=== PATIENT | male | born 1960 | race African-American/Black ===

== ENCOUNTER 2017-03-06 06:13 | Observation (INO) | payer OTHER ==
[~2017-03-06] VITALS: Ht 180.3 cm; Wt 133.8 kg
[2017-03-06] VITALS (10 sets, daily range): BP systolic 116–171; BP diastolic 63–91
[~2017-03-06 06:13] MED LIST: AMLO10TA4 PO; AMLO5TAB4 PO; ASPI-630 PO; ASPI1CPM PO; ATOR20TA PO; CALC0.25 PO; CALC667C6 PO; CHOL2000 PO; FURO-68 PO; GLIP10TA13 PO; HYDR100T24 PO; INSU100I13 SQ; LABE100T3 PO; LIPITOR80 MG PO; LISI-338 PO; LOSA100T6 PO; LOSA50TA6 PO
[2017-03-06 07:03] LABS: HEMOGLOBIN 12.5 g/dL (13.0-17.5); RED BLOOD COUNT 4.33 x10^6/uL (4.30-5.70); RED CELL DISTRIBUTION WIDTH 17.8 % (11.5-14.5); WHITE BLOOD COUNT 7.3 x10^3/uL (4.0-11.0)
[2017-03-06] MEDS ORDERED: LIDOCAINE 2% 20 ML VIAL. ONE ×2 (07:09→08:30)
[2017-03-06] MEDS ORDERED: CINA30TA2 PO (07:11)
[2017-03-06] MEDS ORDERED: SEVE800T8 PO (07:11)
[2017-03-06 07:16] LABS: CALCIUM 8.4 mg/dL (8.5-10.1); CREATININE 13.7 mg/dL (0.7-1.3); GFR 4.5
[2017-03-06 07:21] LABS: POTASSIUM 5.8 mmol/L (3.5-5.1)
[2017-03-06] MEDS ORDERED: IODIXANOL 320 MG/ML 100 ML VIAL. ONE (07:26)
[2017-03-06 07:33] LABS: INR 1.1 (0.8-1.1); PROTHROMBIN TIME PATIENT 13.1 SEC (11.7-14.0)
--- NOTE | 2017-03-06 08:09 | PDOC ---
MODERATE SEDATION ASSESSMENT RISKS/ALTERNATIVES Risks/Alternatives Risks and alternatives of this type of sedation and procedure discussed with: RISK/ALTERNATIVES: Patient H & P ON CHART H & P H & P on chart and reviewed for co-morbid conditions and appropriate labs. H&P ON CHART: Yes STATUS PREG STATUS ASSESSED: N/A MEDS/ALLERGIES REVIEWED Meds/Allergies Reviewed Medications and Allergies including time and route of recently administered narcotics and sedatives. MEDS/ALLERGIES REVIEWED: Yes ASA RATING ASA RATING: II AIRWAY ASSESSMENT Airway Assessment Airway patency, oral function limitations, presence of caps, crowns, dentures, partials, and ability to extend neck assessed. AIRWAY ASSESSMENT: Yes MALLAMPATI SCORE MALLAMPATI SCORE: II PRE-SEDATION ASSESSMENT PRE-SEDATION ASSESSMENT: Yes MELODIE GR MD Mar 06, 2017 08:09
[2017-03-06] MEDS ORDERED: MIDAZOLAM HCL/PF 5 MG/5 ML VIAL. ONE (08:12)
[2017-03-06] MEDS ORDERED: fentaNYL PF VIAL 250 MCG/5 ML VIAL ONE (08:12)
[2017-03-06] MEDS ORDERED: MIDAZOLAM HCL/PF 5 MG/5 ML VIAL. IV ONE (08:45)
[2017-03-06] MEDS ORDERED: fentaNYL PF VIAL 250 MCG/5 ML VIAL IV ONE (08:45)
[2017-03-06] MEDS ORDERED: LIDOCAINE 2% 20 ML VIAL. IJ ONE (08:45)
[2017-03-06] MEDS ORDERED: IODIXANOL 320 MG/ML 100 ML VIAL. IART ONE (08:45)
[2017-03-06] MEDS ORDERED: VERAPAMIL 5 MG/2 ML VIAL. ONE (08:46)
[2017-03-06] MEDS ORDERED: NITROGLYCERIN 200 MCG/2 ML SYRINGE FOR CATH/VASC LAB. ONE ×2 (08:46→09:13)
[2017-03-06] MEDS ORDERED: HEPARIN for IV BOLUS 10,000 UNIT/10 ML VIAL. ONE (08:46)
[2017-03-06] MEDS ORDERED: HEPARIN for IV BOLUS 10,000 UNIT/10 ML VIAL. IART ONE (09:00)
[2017-03-06] MEDS ORDERED: VERAPAMIL 5 MG/2 ML VIAL. IART ONE (09:00)
[2017-03-06] MEDS ORDERED: NITROGLYCERIN 200 MCG/2 ML SYRINGE FOR CATH/VASC LAB. IART ONE (09:00)
[2017-03-06] MEDS ORDERED: NITROGLYCERIN SUBLINGUAL 0.4 MG BOTTLE OF 25. SL PRN (10:00)
[2017-03-06] MEDS ORDERED: 0.9 % SODIUM CHLORIDE 10 ML DISP.SYRIN. IV PRN ×3 (10:00→15:15)
--- NOTE | 2017-03-06 11:18 | PDOC2 ---
CONSULT Date of Consult Date of Consult DATE: 03/06/17 TIME: 11:15 Reason for Consult Reason for Consult: ESRD Referring Physician Referring Physician: Dr Hodge Identification/Chief Complaint Chief Complaint ABN Stress test, now S/p [facility] Problems: Source Source: Chart review, Patient History of Present Illness Reason for Visit: as dictated Past Medical History Cardiovascular: HTN, Hyperlipidemia Pulmonary: Other CENTRAL NERVOUS SYSTEM: CVA GI: Peptic Ulcer disease Psych: Anxiety Musculoskeletal: Osteoarthritis Rheumatologic: Gout Renal/: Chronic renal insuff Endocrine: Diabetes Family History Family History: Hypertension Social History No ALCOHOL: none Drugs: None Lives: with Family Current Medications Current Medications Current Medications Lidocaine HCl 20 ml STK-MED ONCE .ROUTE ; Start 03/06/17 at 07:09; Stop at 07:10; Status DC Heparin Sodium/ Sodium Chloride 500 ml @ As Directed STK-MED ONCE .ROUTE ; Start 03/06/17 at 07:09; Stop 03/06/17 at 07:10; Status DC Iodixanol (Visipaque 320) 100 ml STK-MED ONCE .ROUTE ; Start 03/06/17 at 07:26 ; Stop 03/06/17 at 07:27; Status DC Fentanyl Citrate (Fentanyl 5ml Vial) 250 mcg STK-MED ONCE .ROUTE ; Start at 08:12; Stop 03/06/17 at 08:13; Status DC Midazolam HCl (Versed) 5 mg STK-MED ONCE .ROUTE ; Start 03/06/17 at 08:12; Stop 03/06/17 at 08:13; Status DC Lidocaine HCl 20 ml STK-MED ONCE .ROUTE ; Start 03/06/17 at 08:30; Stop at 08:31; Status DC Heparin Sodium/ Sodium Chloride 1,000 unit 1X ONCE IART Last administered on 03/06/17 09:37; Start 03/06/17 at 08:45; Stop 03/06/17 at 08:46; Status DC Midazolam HCl (Versed) 3 mg 1X ONCE IV Last administered on 03/06/17 09:40; Start 03/06/17 at 08:45; Stop 03/06/17 at 08:46; Status DC Fentanyl Citrate (Fentanyl 5ml Vial) 100 mcg 1X ONCE IV Last administered on 03/06/17 09:39; Start 03/06/17 at 08:45; Stop 03/06/17 at 08:46; Status DC Iodixanol (Visipaque 320) 100 ml 1X ONCE IART Last administered on 03/06/17 09:38; Start 03/06/17 at 08:45; Stop 03/06/17 at 08:46; Status DC Lidocaine HCl 25 ml 1X ONCE IJ Last administered on 03/06/17 09:38; Start 03/06/17 at 08:45; Stop 03/06/17 at 08:46; Status DC Heparin Sodium (Porcine) (Heparin Sodium) 10,000 unit STK-MED ONCE .ROUTE ; Start 03/06/17 at 08:46; Stop 03/06/17 at 08:47; Status DC Verapamil HCl (Verapamil) 5 mg STK-MED ONCE .ROUTE ; Start 03/06/17 at 08:46; Stop 03/06/17 at 08:47; Status DC Nitroglycerin (Nitroglycerin) 200 mcg STK-MED ONCE .ROUTE ; Start 03/06/17 at 08:46; Stop 03/06/17 at 08:47; Status DC Nitroglycerin (Nitroglycerin) 200 mcg 1X ONCE IART Last administered on 09:41; Start 03/06/17 at 09:00; Stop 03/06/17 at 09:01; Status DC Verapamil HCl (Verapamil) 2.5 mg 1X ONCE IART Last administered on 03/06/17 09:41; Start 03/06/17 at 09:00; Stop 03/06/17 at 09:01; Status DC Heparin Sodium (Porcine) (Heparin Sodium) 2,500 unit 1X ONCE IART Last administered on 03/06/17 09:40; Start 03/06/17 at 09:00; Stop 03/06/17 at 09 :01; Status DC Heparin Sodium/ Sodium Chloride 500 ml @ As Directed STK-MED ONCE .ROUTE ; Start 03/06/17 at 08:59; Stop 03/06/17 at 09:00; Status DC Nitroglycerin (Nitroglycerin) 200 mcg STK-MED ONCE .ROUTE ; Start 03/06/17 at 09:13; Stop 03/06/17 at 09:14; Status DC Sodium Chloride (Normal Saline Flush) 3 ml QSHIFT PRN IV AFTER MEDS AND BLOOD DRAWS; Start 03/06/17 at 10:00; Stop 03/07/17 at 09:59 Nitroglycerin (Nitrostat) 0.4 mg PRN Q5MIN PRN SL CHEST PAIN; Start 03/06/17 at 10:00; Stop 03/07/17 at 09:59 Active Scripts Active Norvasc (Amlodipine Besylate) 10 Mg Tablet 10 Mg PO DAILY 30 Days Aspirin 81 Mg Tab.chew 1 Tab PO DAILY Lipitor (Atorvastatin Calcium) 20 Mg Tablet 1 Tab PO DAILY Losartan Potassium 50 Mg Tablet 50 Mg PO DAILY Reported Sensipar (Cinacalcet Hcl) 30 Mg Tablet 30 Mg PO DAILY Renagel (Sevelamer Hcl) 800 Mg Tablet 800 Mg PO TIDWMEALS Vitamin D (Cholecalciferol (Vitamin D3)) 2,000 Unit Capsule 4,000 Unit PO DAILY Allergies Allergies: Coded Allergies: No Known Allergies (Verified Allergy, Unknown, 01/06/14) ROS Review of System GEN: no Fevers no Chills OCcc weakness EYES: no new Visual Complaints ENT: no EN Drainage no Hearing deficiets CVS: no Orthopnea no CP RESP: no SOB no HERNANDEZ GI: no Nausea no Vomiting : no Dysuria no Urgency HEME: no easy bruising no Palp Ly Nodes NEURO no Focal Weakness no Sz PSYCH: no Suicidal Ideation no Depression SKIN: no Rashes ENDO: no Polyuria or Polydipsia no Hot/Cold Intolerance MU SK: no Arthraigia no Myalgia Physical Exam Physical Exam General Appearance: Awake Alert Oriented x 3 In no Distress Eyes: VIsion Unchanged Conjunctiva Normal EN: No EN Drainage Mucous Memb. moist Neck: no JVD no JVP Supple no Thyromegaly- thick neck CVS: S1 S2 no Murmur No Gallop No Rub no Edema Resp: no Rales no Rhonchi no Acc. Muscle use - distal BS GI: BAS +ve NO Bruit Non Tender Non Distended - Obese : no CVA tenderness; no Suprapubic Tenderness SKIN: no Rashes Breast Exam deferred Mu.Sk: Adequate ROM no Muscle Atrophy Heme: Unable to palpate Obvious LAD no Splenomegaly NEURO: Good Strength and Tone Cranial Nerves II - XII grossly intact Psych: not Depressed no Active hallucination Vital Signs Vital Signs Date Time Temp Pulse Resp B/P (MAP) Pulse Ox O2 Delivery O2 Flow Rate FiO2 03/06/17 11:07 70 14 95 Nasal Cannula 2.0 03/06/17 07:44 98.1 116/90 (99) 98.1 Assessment & Plan ESRD: Dialysis as below F 180 NR 4 Hrs 2 K 2.5 Ca 140 Na 35 HC03 Qb 350 + Qd 500+ Heparin 0 Units Uf to dry weight as tolerated (131 - 132Kg) May give 25-50 gms of 25% Albumin if needed to maintain Hemodynamic stability Treatment plan reviewed and discussed with salicylic acid blender Anemia: no Epogen for hgb > 12. ^K - anticipate correction with HD ? CAD - LHC Clean as reported HTN: Current BP meds reviewed. See orders for changes. Bone & Mineral: follow phos as OP Discussed Plan of Care and prognosis etc. at length with family. Labs Labs Laboratory Tests Test 03/06/17 06:50 White Blood Count 7.3 x10^3/uL (4.0-11.0) Red Blood Count 4.33 x10^6/uL (4.30-5.70) Hemoglobin 12.5 g/dL (13.0-17.5) Hematocrit 38.0 % (39.0-53.0) Mean Corpuscular Volume 88 fL (79-100) Mean Corpuscular Hemoglobin 29 pg (25-35) Mean Corpuscular Hemoglobin Concent 33 g/dL (31-37) Red Cell Distribution Width 17.8 % (11.5-14.5) Platelet Count 207 x10^3/uL (140-400) Prothrombin Time 13.1 SEC (11.7-14.0) Prothromb Time International Ratio 1.1 (0.8-1.1) Sodium Level 137 mmol/L (136-145) Potassium Level 5.8 mmol/L (3.5-5.1) Chloride Level 96 mmol/L (98-107) Carbon Dioxide Level 28 mmol/L (21-32) Anion Gap 13 (6-14) Blood Urea Nitrogen 60 mg/dL (8-26) Creatinine 13.7 mg/dL (0.7-1.3) Estimated GFR (Cockcroft-Gault) 4.5 Glucose Level 118 mg/dL (70-99) Calcium Level 8.4 mg/dL (8.5-10.1) Laboratory Tests Test 03/06/17 06:50 White Blood Count 7.3 x10^3/uL (4.0-11.0) Red Blood Count 4.33 x10^6/uL (4.30-5.70) Hemoglobin 12.5 g/dL (13.0-17.5) Hematocrit 38.0 % (39.0-53.0) Mean Corpuscular Volume 88 fL (79-100) Mean Corpuscular Hemoglobin 29 pg (25-35) Mean Corpuscular Hemoglobin Concent 33 g/dL (31-37) Red Cell Distribution Width 17.8 % (11.5-14.5) Platelet Count 207 x10^3/uL (140-400) Prothrombin Time 13.1 SEC (11.7-14.0) Prothromb Time International Ratio 1.1 (0.8-1.1) Sodium Level 137 mmol/L (136-145) Potassium Level 5.8 mmol/L (3.5-5.1) Chloride Level 96 mmol/L (98-107) Carbon Dioxide Level 28 mmol/L (21-32) Anion Gap 13 (6-14) Blood Urea Nitrogen 60 mg/dL (8-26) Creatinine 13.7 mg/dL (0.7-1.3) Estimated GFR (Cockcroft-Gault) 4.5 Glucose Level 118 mg/dL (70-99) Calcium Level 8.4 mg/dL (8.5-10.1) HÉCTOR CANO MD Mar 06, 2017 11:18
--- NOTE | 2017-03-06 11:44 | CARD ---
APPROVED REPORT Procedure Selective coronary angiogram. The patient is a 56-year-old male with new onset of end-stage renal disease on hemodialysis. Patient recently had a hospitalization with a non-ST elevated myocardial infarction. Outpatient nuclear stres s test suggested an inferior wall infarction. Cardiac catheterization was recommended. Risks and bene fits were discussed. The patient agreed to proceed. After informed consent was obtained the patient was brought to the heart catheterization lab. Initial ly the right femoral artery was prepared in the usual manner with Betadine, sterile draping and local anesthetic. An 18-gauge needle was used to enter the right femoral artery and a wire placed. Howeve r dilators and a sheath could not be placed over the wire probably secondary to the depth of the vess el and the angles involved. Therefore the wire was removed and pressure applied for 10 minutes. Hemos tasis was obtained. Then the area of the right radial artery was prepared usual manner with Betadine, sterile draping and local anesthetic. A quick catheter was used to enter the right radial artery aft er a normal Brennen's test. A sheath was placed over the wire. The routine mixture of verapamil, NTG a nd heparin was administered as per protocol. A J-wire was passed into ascending aorta. A 6 Argentine JL 3.5 and then a JL4 catheter was used to engage the left coronary system and sequential injections in various views were obtained. The patient had some spasm and further antispasm medication was administ ered. A 6 Argentine JR4 diagnostic catheter was then advanced to the ascending aorta after a right Willi ams diagnostic catheter could not engage the right coronary artery. The JR4 was able to engage right coronary artery and sequential injections in various views were obtained. The catheter was removed fr om the patient. The sheath was removed and hemostasis obtained by a TR band as per protocol. The herminia ent was moved to the holding area in stable condition. Findings. Hemodynamics. Aortic root pressure of 128/70. Coronaries. Left main. The left main was a relatively short vessel. It had no lesions. LAD. The LAD was a moderate size vessel that tapered to a small distal vessel. There was a mid 35% le sam in the mid to distal 30% lesion. Left circumflex. The left circumflex was a larger vessel. It had a relatively small OM1 that had a 40 -50% lesion. There was diffuse distal small vessel disease present. Right coronary artery. The right coronary was a moderately large vessel. There was a proximal 10% les ion. It also had distal small vessel disease. <Conclusion> Moderate coronary artery disease. Small vessel distal disease in the left circumflex and right coronary arteries.
[2017-03-06] MEDS ORDERED: hydrALAZINE 20 MG/ML VIAL. IVP PRN (13:30)
[2017-03-06] MEDS ORDERED: ASPIRIN CHEWABLE 81 MG TABLET. PO SCH (14:00)
[2017-03-06] MEDS: amLODIPine BESYLATE 10 MG TABLET PO SCH (15:14)
[2017-03-06] MEDS ORDERED: DIALYSIS PATIENT. MC PRN ×2 (15:15)
[2017-03-06] MEDS ORDERED: IV NORMAL SALINE 1000ML BAG 1,000 ML IV PRN ×2 (15:15)
[2017-03-06] MEDS ORDERED: ALBUMIN HUMAN 25% 200 ML IV PRN (15:15)
--- NOTE | 2017-03-06 15:36 | PDOC1 ---
History and Physical Visit Information Date of Admission: Mar 06, 2017 at 10:00 Source: Patient History of Present Illness History of Present Illness heart failure, ESRD Current Problem List Problems: (1) ESRD (end stage renal disease) on dialysis Cardiac Risk Factors Cardiac Risk Factors: Hypertension, Hyperlipidemia Past Medical History Cardiovascular: CAD, HTN, Hyperlipidemia Pulmonary: Bronchitis CENTRAL NERVOUS SYSTEM: CVA Renal/: Other (ESRD on HD) Past Surgical History Past Surgical History: Other (access dialysis) Current Medications Current Medications Current Medications Albumin Human 200 ml @ 200 mls/hr 1X PRN PRN IV Hypotension; Start 03/06/17 at 15:15; Stop 03/06/17 at 21:14 Amlodipine Besylate (Norvasc) 10 mg DAILY PO Last administered on 03/06/17 15 :14; Start 03/06/17 at 14:00 Aspirin (Children'S Aspirin) 81 mg DAILY PO Last administered on 03/06/17 15: 14; Start 03/06/17 at 14:00 Atorvastatin Calcium (Lipitor) 20 mg QHS PO ; Start 03/06/17 at 21:00 Fentanyl Citrate (Fentanyl 5ml Vial) 100 mcg 1X ONCE IV Last administered on 03/06/17 09:39; Start 03/06/17 at 08:45; Stop 03/06/17 at 08:46; Status DC Fentanyl Citrate (Fentanyl 5ml Vial) 250 mcg STK-MED ONCE .ROUTE ; Start at 08:12; Stop 03/06/17 at 08:13; Status DC Heparin Sodium (Porcine) (Heparin Sodium) 2,500 unit 1X ONCE IART Last administered on 03/06/17 09:40; Start 03/06/17 at 09:00; Stop 03/06/17 at 09 :01; Status DC Heparin Sodium (Porcine) (Heparin Sodium) 10,000 unit STK-MED ONCE .ROUTE ; Start 03/06/17 at 08:46; Stop 03/06/17 at 08:47; Status DC Heparin Sodium/ Sodium Chloride 500 ml @ As Directed STK-MED ONCE .ROUTE ; Start 03/06/17 at 07:09; Stop 03/06/17 at 07:10; Status DC Heparin Sodium/ Sodium Chloride 500 ml @ As Directed STK-MED ONCE .ROUTE ; Start 03/06/17 at 08:59; Stop 03/06/17 at 09:00; Status DC Heparin Sodium/ Sodium Chloride 1,000 unit 1X ONCE IART Last administered on 03/06/17 09:37; Start 03/06/17 at 08:45; Stop 03/06/17 at 08:46; Status DC Hydralazine HCl (Apresoline Inj) 10 mg PRN Q4HRS PRN IVP ELEVATED BP, SEE COMMENTS; Start 03/06/17 at 13:30 Info (PHARMACY MONITORING -- do not chart) 1 each PRN DAILY PRN MC SEE COMMENTS ; Start 03/06/17 at 15:15 Info (PHARMACY MONITORING -- do not chart) 1 each PRN DAILY PRN MC SEE COMMENTS ; Start 03/06/17 at 15:15; Status UNV Iodixanol (Visipaque 320) 100 ml 1X ONCE IART Last administered on 03/06/17 09:38; Start 03/06/17 at 08:45; Stop 03/06/17 at 08:46; Status DC Iodixanol (Visipaque 320) 100 ml STK-MED ONCE .ROUTE ; Start 03/06/17 at 07:26 ; Stop 03/06/17 at 07:27; Status DC Lidocaine HCl 20 ml STK-MED ONCE .ROUTE ; Start 03/06/17 at 07:09; Stop at 07:10; Status DC Lidocaine HCl 20 ml STK-MED ONCE .ROUTE ; Start 03/06/17 at 08:30; Stop at 08:31; Status DC Lidocaine HCl 25 ml 1X ONCE IJ Last administered on 03/06/17 09:38; Start 03/06/17 at 08:45; Stop 03/06/17 at 08:46; Status DC Midazolam HCl (Versed) 3 mg 1X ONCE IV Last administered on 03/06/17 09:40; Start 03/06/17 at 08:45; Stop 03/06/17 at 08:46; Status DC Midazolam HCl (Versed) 5 mg STK-MED ONCE .ROUTE ; Start 03/06/17 at 08:12; Stop 03/06/17 at 08:13; Status DC Nitroglycerin (Nitroglycerin) 200 mcg 1X ONCE IART Last administered on 09:41; Start 03/06/17 at 09:00; Stop 03/06/17 at 09:01; Status DC Nitroglycerin (Nitroglycerin) 200 mcg STK-MED ONCE .ROUTE ; Start 03/06/17 at 08:46; Stop 03/06/17 at 08:47; Status DC Nitroglycerin (Nitroglycerin) 200 mcg STK-MED ONCE .ROUTE ; Start 03/06/17 at 09:13; Stop 03/06/17 at 09:14; Status DC Nitroglycerin (Nitrostat) 0.4 mg PRN Q5MIN PRN SL CHEST PAIN; Start 03/06/17 at 10:00; Stop 03/07/17 at 09:59 Sodium Chloride 1,000 ml @ 400 mls/hr Q2H30M PRN IV PATENCY; Start 03/06/17 at 15:15; Stop 03/07/17 at 03:14 Sodium Chloride 1,000 ml @ 1,000 mls/hr Q1H PRN IV hypotension; Start at 15:15; Stop 03/06/17 at 21:14 Sodium Chloride (Normal Saline Flush) 3 ml QSHIFT PRN IV AFTER MEDS AND BLOOD DRAWS; Start 03/06/17 at 10:00; Stop 03/07/17 at 09:59 Sodium Chloride (Normal Saline Flush) 10 ml 1X PRN PRN IV AP catheter pack; Start 03/06/17 at 15:15; Stop 03/07/17 at 15:14 Sodium Chloride (Normal Saline Flush) 10 ml 1X PRN PRN IV [employer]IST catheter pack; Start 03/06/17 at 15:15; Stop 03/07/17 at 15:14 Verapamil HCl (Verapamil) 2.5 mg 1X ONCE IART Last administered on 03/06/17t 09:41; Start 03/06/17 at 09:00; Stop 03/06/17 at 09:01; Status DC Verapamil HCl (Verapamil) 5 mg STK-MED ONCE .ROUTE ; Start 03/06/17 at 08:46; Stop 03/06/17 at 08:47; Status DC Allergies Allergies Allergies Coded Allergies Type Severity Reaction Last Updated Verified No Known Allergies Allergy Unknown 01/06/14 Yes Social History Smoke: No ALCOHOL: none Family History Family History: Heart Disease, Hypertension ROS General: YES: Fatigue Respiratory: YES: Cough, Shortness of breath Physical Exam General: No acute distress HEENT: Atraumatic Lungs: Clear to auscultation Heart: Regular rate CHEST: Clear to auscultation Abdomen: Normal bowel sounds Vitals VITALS Vital Signs Date Time Temp Pulse Resp B/P (MAP) Pulse Ox O2 Delivery O2 Flow Rate FiO2 03/06/17 15:14 70 151/63 03/06/17 11:38 95 Nasal Cannula 2.0 03/06/17 11:07 14 03/06/17 10:30 97.6 97.6 Labs Labs Laboratory Tests Test 03/06/17 06:50 White Blood Count 7.3 x10^3/uL (4.0-11.0) Red Blood Count 4.33 x10^6/uL (4.30-5.70) Hemoglobin 12.5 g/dL (13.0-17.5) Hematocrit 38.0 % (39.0-53.0) Mean Corpuscular Volume 88 fL (79-100) Mean Corpuscular Hemoglobin 29 pg (25-35) Mean Corpuscular Hemoglobin Concent 33 g/dL (31-37) Red Cell Distribution Width 17.8 % (11.5-14.5) Platelet Count 207 x10^3/uL (140-400) Prothrombin Time 13.1 SEC (11.7-14.0) Prothromb Time International Ratio 1.1 (0.8-1.1) Sodium Level 137 mmol/L (136-145) Potassium Level 5.8 mmol/L (3.5-5.1) Chloride Level 96 mmol/L (98-107) Carbon Dioxide Level 28 mmol/L (21-32) Anion Gap 13 (6-14) Blood Urea Nitrogen 60 mg/dL (8-26) Creatinine 13.7 mg/dL (0.7-1.3) Estimated GFR (Cockcroft-Gault) 4.5 Glucose Level 118 mg/dL (70-99) Calcium Level 8.4 mg/dL (8.5-10.1) Laboratory Tests Test 03/06/17 06:50 White Blood Count 7.3 x10^3/uL (4.0-11.0) Red Blood Count 4.33 x10^6/uL (4.30-5.70) Hemoglobin 12.5 g/dL (13.0-17.5) Hematocrit 38.0 % (39.0-53.0) Mean Corpuscular Volume 88 fL (79-100) Mean Corpuscular Hemoglobin 29 pg (25-35) Mean Corpuscular Hemoglobin Concent 33 g/dL (31-37) Red Cell Distribution Width 17.8 % (11.5-14.5) Platelet Count 207 x10^3/uL (140-400) Prothrombin Time 13.1 SEC (11.7-14.0) Prothromb Time International Ratio 1.1 (0.8-1.1) Sodium Level 137 mmol/L (136-145) Potassium Level 5.8 mmol/L (3.5-5.1) Chloride Level 96 mmol/L (98-107) Carbon Dioxide Level 28 mmol/L (21-32) Anion Gap 13 (6-14) Blood Urea Nitrogen 60 mg/dL (8-26) Creatinine 13.7 mg/dL (0.7-1.3) Estimated GFR (Cockcroft-Gault) 4.5 Glucose Level 118 mg/dL (70-99) Calcium Level 8.4 mg/dL (8.5-10.1) VTE Prophylaxis Ordered VTE Prophylaxis Devices: Yes VTE Pharmacological Prophylaxi: Yes Assessment/Plan Assessment/Plan 1. History of a non-ST elevated myocardial infarction. Abnormal nuclear stress test. Cardiac catheterization today with moderate coronary disease and distal small vessel disease. From a cardiac viewpoint will continue on medical treatment. Post catheterization protocol. 2. End-stage renal disease on hemodialysis. Patient is scheduled for dialysis later today. Potassium level has increased. We'll consult the renal service for hemodialysis. 3. Hyperkalemia. Dialysis as above. 4. Hypertension. Resume home medications. 5. Hyperlipidemia. Statin medications. 6. Diabetes mellitus. We'll monitor glucose levels and adjust medications as needed. 7. History of CVA. MELODIE GR MD Mar 06, 2017 15:36
[2017-03-06] MEDS ORDERED: ATORVASTATIN CALCIUM 20 MG TABLET PO SCH ×2 (21:00)
--- NOTE | 2017-03-06 23:52 | CONS ---
DATE OF CONSULTATION: REASON FOR CONSULTATION: ESRD dialysis, hyperkalemia. HISTORY OF PRESENT ILLNESS: The patient is a 56-year-old -[place] gentleman, he is noted to have an abnormal stress test, presented to the hospital for an elective cath. Reportedly his cath is clean, but his potassium was noted to be 5.9 and we were asked to see him for dialysis. He would not be able to get home in a timely manner had his dialysis done. He does admit to some amount of weakness towards the end of dialysis, his dry weight was raised on Thursday. He claims he felt better on Thursday, although prior to that, he was having some weakness in his lower extremities. It is felt that it is not weigh accurately prior to coming to dialysis. For rest of the details, see electronic records. HÉCTOR CANO MD DR: AINSLEY/jnaessa JOB#: [id number] / [id number]
[2017-03-07 03:15] VITALS: BP 103/53
[2017-03-07 07:00] VITALS: BP 129/84
[2017-03-07] MEDS ORDERED: ASPIRIN ENTERIC COATED 325 MG TABLET.DR. PO SCH (08:00)
[2017-03-07] MEDS ORDERED: amLODIPine BESYLATE 10 MG TABLET PO SCH (09:00)
[2017-03-07] MEDS ORDERED: LOSARTAN POTASSIUM 50 MG TABLET. PO SCH (09:00)
[2017-03-07] MEDS: amLODIPine BESYLATE 10 MG TABLET PO SCH (09:32)
[2017-03-07 09:33] VITALS: BP 103/53
--- NOTE | 2017-03-07 10:53 | PDOC3 ---
Discharge Summary Visit Information Date of Admission: Mar 06, 2017 Date of Discharge: Mar 07, 2017 Admitting Diagnosis: abnormal stress test, ESRD Final Diagnosis moderate CAD, ESRD Brief Hospital Course Allergies Allergies Coded Allergies Type Severity Reaction Last Updated Verified No Known Allergies Allergy Unknown 01/06/14 Yes Vital Signs Vital Signs Date Time Temp Pulse Resp B/P (MAP) Pulse Ox O2 Delivery O2 Flow Rate FiO2 03/07/17 09:33 85 103/53 03/07/17 08:10 Room Air 03/07/17 07:00 98.0 20 97 98.0 03/06/17 11:38 2.0 Lab Results Laboratory Tests Test 03/06/17 06:50 White Blood Count 7.3 x10^3/uL (4.0-11.0) Red Blood Count 4.33 x10^6/uL (4.30-5.70) Hemoglobin 12.5 g/dL (13.0-17.5) Hematocrit 38.0 % (39.0-53.0) Mean Corpuscular Volume 88 fL (79-100) Mean Corpuscular Hemoglobin 29 pg (25-35) Mean Corpuscular Hemoglobin Concent 33 g/dL (31-37) Red Cell Distribution Width 17.8 % (11.5-14.5) Platelet Count 207 x10^3/uL (140-400) Prothrombin Time 13.1 SEC (11.7-14.0) Prothromb Time International Ratio 1.1 (0.8-1.1) Sodium Level 137 mmol/L (136-145) Potassium Level 5.8 mmol/L (3.5-5.1) Chloride Level 96 mmol/L (98-107) Carbon Dioxide Level 28 mmol/L (21-32) Anion Gap 13 (6-14) Blood Urea Nitrogen 60 mg/dL (8-26) Creatinine 13.7 mg/dL (0.7-1.3) Estimated GFR (Cockcroft-Gault) 4.5 Glucose Level 118 mg/dL (70-99) Calcium Level 8.4 mg/dL (8.5-10.1) Brief Hospital Course Mr Ornelas is a 56 yo male admitted for elective LHC. He has been noted recently with abnormal stress test prompting LHC. He is also has ESRD and nephrology ( Dr. Saini) has been consulted for subsequent need of HD following the LHC. Initially right femoral approach was initiated but was unable to penetrate effectively so right radial approach was performed successfully, Both the right groin and right radial arteriotomy site is intact without erythema or swelling and post LHC neurovascular status to extremities were intact. Pt tolerated procedure well wiuthout complications. Overall moderate CAD Small vessel distal disease in the left circumflex and right coronary arteries. Hemodialysis was performed post LHC. Overnight pt did well without discomfort. VSS, with BP mildly labile initially but improved upon initiation of his BP meds. Will continue with secondary prevention with current home meds and follow up in office in 4 weeks. Discharge Information Condition at Discharge: Stable Follow Up: Weeks (4) Disposition/Orders: D/C to Home Scheduled Amlodipine Besylate (Norvasc), 10 MG PO DAILY Aspirin (Aspirin), 1 TAB PO DAILY Atorvastatin Calcium (Lipitor), 1 TAB PO DAILY Cholecalciferol (Vitamin D3) (Vitamin D), 4,000 UNIT PO DAILY, (Reported) Cinacalcet Hcl (Sensipar), 30 MG PO DAILY, (Reported) Losartan Potassium (Losartan Potassium), 50 MG PO DAILY Sevelamer Hcl (Renagel), 800 MG PO TIDWMEALS, (Reported) Patient Instructions Patient Instructions GENERAL INSTRUCTIONS: 1. Your dressing should be removed prior to leaving the hospital. 2. It is OK to shower the day after your procedure. 3. If you received stents, be sure to carry your stent information card with you in your wallet/purse at all times. 4. Call the office immediately at [phone] if you notice any fever or if there is redness, worsening tenderness/pain, increased bruising, or drainage from the puncture site. 5. Should you have bleeding from the site, lie down immediately & put pressure on the site. The pressure should be hard enough to stop the bleeding. Have the nearest person call 911. DO NOT try to drive to the ER with active bleeding. 6. If you notice a change in color, coolness to touch, or loss of feeling in the affected extremity, come to the emergency room. Please have someone drive you or call 911 if no one is available. DO NOT drive yourself. 7. If you normally take glucophage (metformin), please do not take this medicine for 48 hours following your procedure. 8. DO NOT STOP TAKING YOUR PLAVIX OR ASPIRIN UNLESS IT IS CLEARED BY A TURBINE INSPECTOR OF YOUR NURSE SITTER AT OUR OFFICE. 9. QUIT SMOKING: the [place] [employer], [place] [employer], & [place] [employer] have cessation resources available on their websites 10. Please have someone available to drive you home from the hospital as you may be limited by sedation medications given during the procedure. Femoral (Groin) access: 1. Do no lifting, pushing, pulling, bending, stooping, or recurrent stair climbing for 3 days following your procedure. 2. Once past the first 3 days, do not do any HEAVY exertion or lifting for one week following the procedure. No gym workouts, running, lifting greater than a gallon of milk, etc 3. Do not submerge in bath or pool for one week. OK to drive 3 days following your procedure, but if going long distance, do not go alone & take hourly breaks to get out of car and walk around. Radial Artery (Wrist) access: 1. No pushing, pulling, lifting, typing, or anything that requires repetitive use/movement of the affected wrist for 3 days following your procedure. 2. OK to drive the day following your procedure. (This is because of effects of sedating medications.) Call the office at [phone] for any questions or concerns. AMBAR GONZALEZ APRN Mar 07, 2017 10:53
== END 2017-03-07 14:02 | disposition home or self-care (01) ==
LOC: CCL 06:13 → 2 SOUTH 10:00
PROVIDERS: ADMIT Internal Medicine Cardiovascular Disease; ATTEND Internal Medicine Cardiovascular Disease
DX: I25.10 Atherosclerotic heart disease of native coronary artery without angina pectoris (principal); I12.0 Hypertensive chronic kidney disease with stage 5 chronic kidney disease or end stage renal disease; E11.22 Type 2 diabetes mellitus with diabetic chronic kidney disease; N18.6 End stage renal disease; E78.5 Hyperlipidemia, unspecified; M10.9 Gout, unspecified; E66.01 Morbid (severe) obesity due to excess calories; E87.5 Hyperkalemia; I25.2 Old myocardial infarction; M19.90 Unspecified osteoarthritis, unspecified site; F41.9 Anxiety disorder, unspecified; Z86.73 Personal history of transient ischemic attack (TIA), and cerebral infarction without residual deficits; Z87.11 Personal history of peptic ulcer disease
CPT/HCPCS: 36415; 80048; 85027; 85610; 90935; 93454; C1769; C1892; G0378; G0379; J1644; J2250; J3010; J3490; 99152; 99153; G0257; J2001

== ENCOUNTER → 2018-09-15 | Day surgery (SDC) | payer OTHER ==
[~2018-09-15] VITALS: Ht 180.3 cm; Wt 59.9 kg
[~2018-09-15] MED LIST changes: +AMLO10TA8 PO; +ATOR20TA58 PO; +BUPIVAC MPF-EPI 0.5%-1:200000 30 ML VIAL. ONE; +CARV3.1210 PO; +CINA30TA2 PO; +DESFLURANE 61 TO 120 MINUTES IH ONE; +DEXAMETHASONE SOD PHOS 4 MG/ML VIAL ONE; +ESCITALOPRAM OX10 MG PO; +ESMOLOL 100 MG/10 ML VIAL. IVP ONE; +FERR210T PO; +FURO40TA4 PO; +GLYCOPYRROLATE 1 MG/5 ML VIAL. ONE; +HEPARIN SODIUM 1,000 UNIT in IV NORMAL SALINE 100ML 100 ML IRR ONE; +HYDR-3164 PO; +HYDROcodone/APAP 5/325MG 1 TAB TABLET PO ONE; +HYDROmorphone 2 MG/ML VIAL IV PRN; +IV NORMAL SALINE 1000ML BAG 1,000 ML IV SCH; +IV RINGERS,LACTATED 1000ML 1,000 ML IV SCH; -LABE100T3 PO; +LABE100T5 PO; +LIDOCAINE 1% PF 2 ML VIAL. ID PRN; +LIDOCAINE 2% PF 5 ML VIAL. ONE; +LOSA-73 PO; +LOSA100T14 PO; -LOSA100T6 PO; -LOSA50TA6 PO; +MORPHINE SULFATE 2 MG/ML VIAL. IV PRN; +NEOSTIGMINE METHYLSULFATE 5 MG/5 ML SYRINGE. ONE; +ONDANSETRON PF 4 MG/2 ML VIAL. IV PRN; +ONDANSETRON PF 4 MG/2 ML VIAL. ONE; +PROCHLORPERAZINE 10 MG/2 ML VIAL. IV PRN; +PROCHLORPERAZINE 10 MG/2 ML VIAL. ONE; +PROPOFOL 20 ML IV ONE; +ROCURONIUM 50 MG/5 ML VIAL. ONE; +SEVE800T8 PO; +ceFAZolin 2GM PREMIX 2 GM/50 ML BAG IV ONE; +fentaNYL PF VIAL 100 MCG/2 ML VIAL IV PRN; +fentaNYL PF VIAL 100 MCG/2 ML VIAL ONE
--- NOTE | 2018-09-15 09:08 | DISCH ---
DISCHARGE INSTRUCTIONS Condition on Discharge Condition on Discharge: Stable Activity After Discharge Activity Instructions for Disc: Other, see below (no lifting over 20 lbs X 2 weeks) Diet after Discharge Diet after Discharge: Renal Dialysis Wound Incision Care Wound/Incision Care: Other, see below (keep dressings clean and dry until seen by dialysis center) Follow-Up Follow up with: Dialysis center ILEANA BETANCOURT MD September 15, 2018 09:08
--- NOTE | 2018-09-15 09:15 | PDOC4 ---
Operative Note Operative Note OPERATIVE NOTE: PREOPERATIVE DIAGNOSIS: Renal failure. POSTOPERATIVE DIAGNOSIS: Renal failure. PROCEDURE: Laparoscopic peritoneal dialysis catheter placement. SURGEON: Koko Betancourt MD ANESTHESIA: General. ESTIMATED BLOOD LOSS: 10 mL. SPECIMENS: None. DRAINS: None. COMPLICATIONS: None. INDICATIONS: The patient is a 57 year old male who was referred for placement of a peritoneal dialysis catheter due to progressive renal failure. The details and risks of surgery were discussed with the patient. The risks of surgery include bleeding, infection, visceral injury, pain, anesthetic risk, potential need for additional surgery or procedure. In addition, the patient is aware of the potential for catheter malfunction or dysfunction and possibility of needing revision, replacement, or removal of the catheter. They understand all this and would like to proceed. DESCRIPTION OF PROCEDURE: The patient was brought to the operating room and placed supine on the operating table. General anesthesia was performed. The abdomen was prepped with ChloraPrep and draped in a standard surgical manner. The patient is obese and the plan is for a tunneled catheter to exit in the left upper quadrant. The template was used to katia the left abdomen for planned placement of lower portion of the catheter. A small incision was made in the patient's right upper quadrant through which a visualized 5-mm trocar was inserted. A pneumoperitoneum was then created and the laparoscope was introduced. Initial inspection showed no significant adhesions or any other gross abnormalities. A small incision was made to the left of the patient's midline at the marked location for the exit site of the cuff. An 8-mm trocar was inserted through this location. The coiled portion of the lower catheter was then inserted into the pelvis under direct visualization. The cuff was positioned in the rectus musculature. The coiled portion rested well in the inferior mid pelvis. The pneumoperitoneum was then relieved. Using the second template the abdomen was marked at the estimated exit site of the upper catheter portion. The upper and lower catheters were then cut based on template measurements which included the distance to the fascia. The catheters were joined using the metallic connector. The catheters were secured to the connector using 2-0 Prolene. A left upper quadrant incision was made at the exit site marking. The catheter was then tunneled anterior to the fascia using the large tunneler. Reinspection of the abdomen with the laparoscope showed some movement of the intra-abdominal portion of the catheter. A 5 mm trocar was then placed in left lower quadrant which assisted with repositioning of the abdominal portion of the catheter. Again care was taken to ensure that the coiled portion rested in the low pelvis and the cuff rested in the muscle layer. Another incision was made in the left upper quadrant for planned exit site of the proximal catheter. The catheter was then tunneled subcutaneously and the proximal cuff remained in the subcutaneous tissue a few cm away from the exit site. The catheter was then assembled to IV tubing and tested by infusing a liter of saline. The saline passed easily into the abdomen and the bag was placed on the floor. Nearly all of the saline readily was retrieved with prompt flow. The pneumoperitoneum was relieved and the ports were removed. The catheter was then assembled to the connector tubing as per the dialysis instructions. All the incision sites were closed with 4-0 Monocryl. Steri-Strips and sterile dressing were then applied. The patient tolerated procedure well and was sent to the recovery room in stable condition. At the end of the case all counts were correct. KOKO BETANCOURT MD September 15, 2018 09:15
[2018-09-15] MEDS: fentaNYL PF VIAL 100 MCG/2 ML VIAL IV PRN ×3 (09:37→10:39)
[2018-09-15 12:10] VITALS: BP 122/68
== END | disposition home or self-care (01) ==
LOC: SURG 05:47
PROVIDERS: ATTEND Surgery
DX: E11.22 Type 2 diabetes mellitus with diabetic chronic kidney disease (principal); I12.9 Hypertensive chronic kidney disease with stage 1 through stage 4 chronic kidney disease, or unspecified chronic kidney disease; N18.9 Chronic kidney disease, unspecified; E78.5 Hyperlipidemia, unspecified; M10.9 Gout, unspecified; Z79.82 Long term (current) use of aspirin; Z86.73 Personal history of transient ischemic attack (TIA), and cerebral infarction without residual deficits; Z98.890 Other specified postprocedural states; Z79.84 Long term (current) use of oral hypoglycemic drugs
CPT/HCPCS: 49324; A7015; C1752; J0696; J0780; J1100; J1644; J2001; J2405; J2704; J2710; J3010; J3490

== ENCOUNTER → 2018-10-12 | Outpatient (CLI) | payer OTHER ==
[2018-09-15 12:10] VITALS: BP 122/68
[~2018-10-12] MED LIST changes: -BUPIVAC MPF-EPI 0.5%-1:200000 30 ML VIAL. ONE; -DESFLURANE 61 TO 120 MINUTES IH ONE; -DEXAMETHASONE SOD PHOS 4 MG/ML VIAL ONE; -ESMOLOL 100 MG/10 ML VIAL. IVP ONE; -GLYCOPYRROLATE 1 MG/5 ML VIAL. ONE; -HEPARIN SODIUM 1,000 UNIT in IV NORMAL SALINE 100ML 100 ML IRR ONE; -HYDROcodone/APAP 5/325MG 1 TAB TABLET PO ONE; -HYDROmorphone 2 MG/ML VIAL IV PRN; -IV NORMAL SALINE 1000ML BAG 1,000 ML IV SCH; -IV RINGERS,LACTATED 1000ML 1,000 ML IV SCH; -LIDOCAINE 1% PF 2 ML VIAL. ID PRN; -LIDOCAINE 2% PF 5 ML VIAL. ONE; -MORPHINE SULFATE 2 MG/ML VIAL. IV PRN; -NEOSTIGMINE METHYLSULFATE 5 MG/5 ML SYRINGE. ONE; -ONDANSETRON PF 4 MG/2 ML VIAL. IV PRN; -ONDANSETRON PF 4 MG/2 ML VIAL. ONE; -PROCHLORPERAZINE 10 MG/2 ML VIAL. IV PRN; -PROCHLORPERAZINE 10 MG/2 ML VIAL. ONE; -PROPOFOL 20 ML IV ONE; -ROCURONIUM 50 MG/5 ML VIAL. ONE; -ceFAZolin 2GM PREMIX 2 GM/50 ML BAG IV ONE; -fentaNYL PF VIAL 100 MCG/2 ML VIAL IV PRN; -fentaNYL PF VIAL 100 MCG/2 ML VIAL ONE
--- NOTE | 2018-10-12 14:22 | CARD ---
MR#: [id number] Date of Study: 10/12/2018 Ordering Physician: MELODIE GR, Referring Physician: MELODIE GR, Tech: Chantale Brock [facility] APPROVED REPORT EXAM: Two-dimensional and M-mode echocardiogram with Doppler and color Doppler. Other Information Quality : AverageHR: 74bpm Rhythm : NSR INDICATION Cardiomyopathy 2D DIMENSIONS RVDd3.2 (2.9-3.5cm)Left Atrium(2D)4.1 (1.6-4.0cm) IVSd1.7 (0.7-1.1cm)Aortic Root(2D)3.3 (2.0-3.7cm) LVDd5.2 (3.9-5.9cm)LVOT Diameter2.4 (1.8-2.4cm) PWd1.2 (0.7-1.1cm)LVDs3.6 (2.5-4.0cm) FS (%) 30.6 %SV75.2 ml LVEF(%)57.8 (>50%) M-Mode DIMENSIONS Left Atrium(MM)3.68 (2.5-4.0cm)Aortic Root3.26 (2.2-3.7cm) Aortic Valve AoV Peak Diony.265.0cm/sAoV VTI50.4cm AO Peak GR.28.1mmHgLVOT Peak Diony.121.7cm/s AO Mean GR.13mmHgAVA (VMAX)2.06cm2 MAYE (VTI)2.10cm2 Mitral Valve MV E Bxslyymy05.3cm/sMV DECEL [id number] MV A Vqeuioij628.4cm/sE/A Ratio0.8 MV A [id number] Pulmonary Valve PV Peak Uawcrskd87.3cm/s LEFT VENTRICLE The left ventricle is normal size. There is moderate concentric left ventricular hypertrophy. The lef t ventricular systolic function is normal. The Ejection Fraction is 55-60%. There is normal LV segmen tracy wall motion. Transmitral Doppler flow pattern is Grade I-abnormal relaxation pattern. RIGHT VENTRICLE The right ventricle is normal size. There is normal right ventricular wall thickness. The right ventr icular systolic function is normal. ATRIA The left atrium is mildly dilated. The right atrium size is normal. The interatrial septum is intact with no evidence for an atrial septal defect or patent foramen ovale as noted on 2-D or Doppler imagi ng. AORTIC VALVE The aortic valve is mildly calcified. The aortic valve is trileaflet. Doppler and Color Flow revealed mild aortic regurgitation. Calculated aortic valve area is 2.1 cm2 with maximum pressure gradient of 28 mmHg and mean pressure gradient of 13 mmHg. MITRAL VALVE Mitral annular calcification is mild. There is no evidence of mitral valve prolapse. There is no mitr al valve stenosis. Doppler and Color Flow revealed no mitral valve regurgitation noted. TRICUSPID VALVE The tricuspid valve is normal in structure and function. Doppler and Color Flow revealed no tricuspid valve regurgitation noted. There is no tricuspid valve prolapse or vegetation. There is no tricuspid valve stenosis. PULMONIC VALVE The pulmonic valve is not well visualized. GREAT VESSELS The aortic root is normal in size. The ascending aorta is normal in size. The IVC is normal in size a nd collapses >50% with inspiration. PERICARDIAL EFFUSION There is no evidence of significant pericardial effusion. Critical Notification Critical Value: No <Conclusion> The left ventricular systolic function is normal. The Ejection Fraction is 55-60%. There is normal LV segmental wall motion. Transmitral Doppler flow pattern is Grade I-abnormal relaxation pattern. Mild aortic regurgitation. There is no evidence of significant pericardial effusion. Signed by : Larry Olivares, Electronically Approved : 10/12/2018 14:22:15
== END | disposition home or self-care (01) ==
LOC: ECHO 12:45
PROVIDERS: ATTEND Internal Medicine Cardiovascular Disease
DX: I08.0 Rheumatic disorders of both mitral and aortic valves (principal); I11.9 Hypertensive heart disease without heart failure; I25.5 Ischemic cardiomyopathy
CPT/HCPCS: 93306

== ENCOUNTER 2019-03-24 17:09 | Emergency (ER) | payer OTHER ==
[~2019-03-24] VITALS: Ht 190.5 cm; Wt 140.2 kg
[2019-03-24] MEDS ORDERED: ONDANSETRON PF 4 MG/2 ML VIAL. IV ONE (17:30)
[2019-03-24] MEDS ORDERED: SCOPOLAMINE 1.5MG PATCH. TD ONE (17:30)
[2019-03-24 17:47] LABS: BASO # 0.1 x10^3/uL (0.0-0.2); BASO % 0 % (0-3); EOS # 0.2 x10^3/uL (0.0-0.7); EOS % 2 % (0-3); HEMOGLOBIN 12.7 g/dL (13.0-17.5); LYMPH # 1.2 x10^3/uL (1.0-4.8); LYMPH % 8 % (24-48); MEAN CORPUSCULAR HEMOGLOBIN 32 pg (25-35); MEAN CORPUSCULAR HGB CONC 33 g/dL (31-37); MEAN CORPUSCULAR VOLUME 96 fL (79-100); MONO # 0.7 x10^3/uL (0.0-1.1); MONO % 4 % (0-9); NEUT # 13.1 x10^3/uL (1.8-7.7); NEUT % 86 % (31-73); PLATELET COUNT 261 x10^3/uL (140-400); RED BLOOD COUNT 3.94 x10^6/uL (4.30-5.70); RED CELL DISTRIBUTION WIDTH 15.4 % (11.5-14.5); WHITE BLOOD COUNT 15.2 x10^3/uL (4.0-11.0)
[2019-03-24 17:54] LABS: CREATININE 18.4 mg/dL (0.7-1.3); GFR 3.2; POTASSIUM 3.6 mmol/L (3.5-5.1)
--- NOTE | 2019-03-24 17:55 | PHYS DOC ---
Past Medical History Past Medical History: CVA, High Cholesterol, Hypertension, Other Additional Past Medical Histor: kidney failure with peritoneal dialysis, (RAGHAVENDRA ENRIQUEZ Jr. DO) Past Surgical History: Other Additional Past Surgical Histo: peritoneal dialysis catheter, left arm shunt. (RAGHAVENDRA ENRIQUEZ Jr. DO) Alcohol Use: None Drug Use: None (RAGHAVENDRA ENRIQUEZ Jr., DO) Adult General Chief Complaint Chief Complaint: DIZZY/LIGHT HEADED HPI HPI Patient is a 58-year-old male who presents with complaint of acute onset of dizziness that started approximately 45 minutes ago. Patient indicates that his soon as he became dizzy, he developed severe nausea and vomiting. He denies any headache or lateralizing weakness. He states the dizziness is worsened with any change of position. He states that it's a little bit improved when he closes his eyes. Patient denies any chest pain or shortness of breath.[] (RAGHAVENDRA ENRIQUEZ Jr., DO) Review of Systems Review of Systems Constitutional: Denies fever or chills [] Respiratory: Denies cough or shortness of breath [] Cardiovascular: No additional information not addressed in HPI [] GI: Denies abdominal pain. Complains of nausea and vomiting without diarrhea [] Integument: Denies rash or skin lesions [] Neurologic: Denies headache, focal weakness or sensory changes. Complains of vertiginous dizziness [] All other systems were reviewed and found to be within normal limits, except as documented in this note. (RAGHAVENDRA ENRIQUEZ Jr., DO) Current Medications Current Medications Current Medications Medications (Trade) Dose Ordered Sig/Iván Start Time Stop Time Status Last Admin Dose Admin Lorazepam (Ativan Inj) 1 mg 1X ONCE 03/24/19 17:30 03/24/19 17:31 DC 03/24/19 17:39 1 MG Ondansetron HCl (Zofran) 4 mg 1X ONCE 03/24/19 17:30 03/24/19 17:31 DC 03/24/19 17:39 4 MG Scopolamine (Transderm-Scop) 1 patch 1X ONCE 03/24/19 17:30 03/24/19 17:31 DC 03/24/19 17:34 1 PATCH (DOUG LOPEZ DO) Allergies Allergies Allergies Coded Allergies Type Severity Reaction Last Updated Verified No Known Drug Allergies 03/24/19 No (DOUG LOPEZ DO) Physical Exam Physical Exam Constitutional: Well developed, well nourished, in mild distress, non-toxic appearance. [] HENT: Normocephalic, atraumatic, bilateral external ears normal, oropharynx moist, no oral exudates, nose normal. [] Eyes: PERRLA, EOMI, conjunctiva normal, no discharge. [] Neck: Normal range of motion, no tenderness, supple. [] Cardiovascular: Regular rate and rhythm[] Lungs & Thorax: Bilateral breath sounds clear to auscultation [] Abdomen: Bowel sounds normal, soft, no tenderness. [] Skin: Warm, dry, no erythema, no rash. [] Extremities: No tenderness, no cyanosis, no clubbing, ROM intact. [] Neurologic: Alert and oriented X 3, no focal deficits noted. [] (RAGHAVENDRA ENRIQUEZ Jr. DO) Physical Exam Constitutional: Well developed, well nourished, somnolent but arouses to voice Eyes: PERRL, EOMI Neck: Normal range of motion, no tenderness, supple Cardiovascular: Heart rate normal, regular rhythm Lungs & Thorax: Bilateral breath sounds clear to auscultation, no wheezing Skin: Warm, dry, no erythema, no rash Neurologic: Alert and oriented X 3, normal motor function, normal sensory function, no focal deficits noted (DOUG LOPEZ DO) Current Patient Data Vital Signs Vital Signs Date Time Temp Pulse Resp B/P (MAP) Pulse Ox O2 Delivery O2 Flow Rate FiO2 03/24/19 17:09 96.6 105 18 178/80 (112) 94 Room Air 96.6 (DOUG LOPEZ DO) Lab Values Laboratory Tests Test 03/24/19 17:37 White Blood Count 15.2 x10^3/uL (4.0-11.0) H Red Blood Count 3.94 x10^6/uL (4.30-5.70) L Hemoglobin 12.7 g/dL (13.0-17.5) L Hematocrit 38.0 % (39.0-53.0) L Mean Corpuscular Volume 96 fL (79-100) Mean Corpuscular Hemoglobin 32 pg (25-35) Mean Corpuscular Hemoglobin Concent 33 g/dL (31-37) Red Cell Distribution Width 15.4 % (11.5-14.5) H Platelet Count 261 x10^3/uL (140-400) Neutrophils (%) (Auto) 86 % (31-73) H Lymphocytes (%) (Auto) 8 % (24-48) L Monocytes (%) (Auto) 4 % (0-9) Eosinophils (%) (Auto) 2 % (0-3) Basophils (%) (Auto) 0 % (0-3) Neutrophils # (Auto) 13.1 x10^3/uL (1.8-7.7) H Lymphocytes # (Auto) 1.2 x10^3/uL (1.0-4.8) Monocytes # (Auto) 0.7 x10^3/uL (0.0-1.1) Eosinophils # (Auto) 0.2 x10^3/uL (0.0-0.7) Basophils # (Auto) 0.1 x10^3/uL (0.0-0.2) Segmented Neutrophils % 92 % (35-66) H Band Neutrophils % 1 % (0-9) Lymphocytes % 7 % (24-48) L Toxic Granulation Slight Toxic Vacuolation Slight Platelet Estimate Adequate (ADEQUATE) Sodium Level 137 mmol/L (136-145) Potassium Level 3.6 mmol/L (3.5-5.1) Chloride Level 95 mmol/L (98-107) L Carbon Dioxide Level 27 mmol/L (21-32) Anion Gap 15 (6-14) H Blood Urea Nitrogen 61 mg/dL (8-26) H Creatinine 18.4 mg/dL (0.7-1.3) H Estimated GFR (Cockcroft-Gault) 3.2 BUN/Creatinine Ratio 3 (6-20) L Glucose Level 189 mg/dL (70-99) H Calcium Level 7.0 mg/dL (8.5-10.1) L Magnesium Level 1.8 mg/dL (1.8-2.4) Total Bilirubin 0.4 mg/dL (0.2-1.0) Aspartate Amino Transferase (AST) 19 U/L (15-37) Alanine Aminotransferase (ALT) 7 U/L (16-63) L Alkaline Phosphatase 64 U/L (46-116) Total Protein 7.9 g/dL (6.4-8.2) Albumin 3.3 g/dL (3.4-5.0) L Albumin/Globulin Ratio 0.7 (1.0-1.7) L Laboratory Tests 03/24/19 17:37 Laboratory Tests 03/24/19 17:37 (DOUG LOPEZ DO) EKG EKG [] (RAGHAVENDRA ENRIQUEZ Jr., DO) EKG @1713 NSR 87bpm, NO ST elevation, wide QRS at 118ms, LAFB (DOUG LOPEZ DO) Radiology/Procedures Radiology/Procedures [] (RAGHAVENDRA ENRIQUEZ Jr., DO) Radiology/Procedures PROCEDURE: CT HEAD WO CONTRAST CT Head W/O Contrast: History: Acute dizziness Comparison: none Axial images were obtained without contrast. There is mild diffuse atrophy. There is no mass effect, extraaxial fluid collections or hydrocephalus. There is no gross bleed. Mild, patchy periventricular and subcortical white matter hypoattenuation is seen. There is no focal loss of iyer-white matter distinction to suggest acute ischemia, i.e. stroke. There is opacification of the right maxillary sinus. Impression: Right maxillary sinus disease. No acute intracranial findings. RS Compliance Statement: One or more of the following individualized dose reduction techniques were utilized for this examination: 1. Automated exposure control 2. Adjustment of the mA and/or kV according to patient size 3. Use of iterative reconstruction technique Electronically signed by: Alejandro Mayberry III, MD (03/24/2019 6:21 PM) [facility] (DOUG LOPEZ DO) Course & Med Decision Making Course & Med Decision Making Pertinent Labs and Imaging studies reviewed. (See chart for details) Patient moved to room upon arrival was evaluated by ER medical staff after which an IV was established and blood work was drawn. Patient was given IV Zofran as well as lorazepam and a scopolamine patch. Patient rechecked at 5:45 PM and is reporting improvement in the dizziness and nausea. Patient will be sent down for CT imaging of the brain to rule out stroke. At this time, patient's workup is pending and patient is being signed out to oncoming ER physician, Dr. Lopez, at 6:00 PM. (RAGHAVENDRA ENRIQUEZ Jr., DO) Course & Med Decision Making 1800- Sign out received from Dr. Enriquez for patient with HPI and physical exam concerning for vertigo. Patient neurologically intact. Previously controlled with Zofran, Ativan IV, and scopolamine patch. Labs reviewed. WBC elevated. EKG stable. CT head without acute process however opacification of right maxillary sinus noted. Empiric steroid and antibiotic given. Patient with interval improvement of symptoms. Patient stable for discharge with outpatient follow-up with PCP/ENT. ENT referral provided. Discussed findings and plan with patient and family, who acknowledge understanding and agreement. (DOUG LOPEZ DO) Dragon Disclaimer Dragon Disclaimer This electronic medical record was generated, in whole or in part, using a voice recognition dictation system. (RAGHAVENDRA ENRIQUEZ Jr., DO) Departure Departure Impression: Primary Impression: Vertigo Additional Impression: Sinusitis Disposition: HOME, SELF-CARE Condition: IMPROVED Referrals: JESSICA GUTIERREZ (PCP) Patient Instructions: Sinusitis, Cqxy-lo-Efci, Vertigo, Cqsz-pc-Mdaq Scripts Prednisone (PREDNISONE) 20 Mg Tablet 2 TAB PO DAILY, #8 TAB Start this prescription tomorrow, Thursday03/25/19 Prov: DOUG LOPEZ DO 03/24/19 Amoxicillin/Potassium Clav (AUGMENTIN 875-125 TABLET) 1 Each Tablet 1 TAB PO BID, #14 TAB Prov: DOUG LOPEZ DO 03/24/19 Meclizine Hcl (MECLIZINE HCL) 25 Mg Tablet 1 TAB PO PRN TID PRN for DIZZINESS, #20 TAB Prov: DOUG LOPEZ DO 03/24/19 Problem Qualifiers Additional Impression: Sinusitis Sinusitis location: maxillary Chronicity: unspecified Qualified Codes: J32.0 - Chronic maxillary sinusitis RAGHAVENDRA ENRIQUEZ Jr., DO Mar 24, 2019 17:55 DOUG LOPEZ DO Mar 24, 2019 18:19
[2019-03-24 17:59] LABS: ALBUMIN 3.3 g/dL (3.4-5.0); ALBUMIN/GLOBULIN RATIO 0.7 (1.0-1.7); MAGNESIUM 1.8 mg/dL (1.8-2.4); TOTAL BILIRUBIN 0.4 mg/dL (0.2-1.0); TOTAL PROTEIN 7.9 g/dL (6.4-8.2)
[2019-03-24 18:04] LABS: % BANDS 1 % (0-9); % LYMPHS 7 % (24-48); % SEGS 92 % (35-66)
[2019-03-24 18:05] LABS: PLT ESTIMATE ADEQUATE (ADEQUATE)
[2019-03-24 18:07] LABS: TOXIC GRANULATION SLIGHT; TOXIC VACUOLATION SLIGHT
--- NOTE | 2019-03-24 18:24 | RAD ---
CT Head W/O Contrast: History: Acute dizziness Comparison: none Axial images were obtained without contrast. There is mild diffuse atrophy. There is no mass effect, extraaxial fluid collections or hydrocephalus. There is no gross bleed. Mild, patchy periventricular and subcortical white matter hypoattenuation is seen. There is no focal loss of iyer-white matter distinction to suggest acute ischemia, i.e. stroke. There is opacification of the right maxillary sinus. Impression: Right maxillary sinus disease. No acute intracranial findings. PQRS Compliance Statement: One or more of the following individualized dose reduction techniques were utilized for this examination: 1. Automated exposure control 2. Adjustment of the mA and/or kV according to patient size 3. Use of iterative reconstruction technique Electronically signed by: Alejandro Mayberry III, MD (03/24/2019 6:21 PM) [facility]
[2019-03-24] MEDS ORDERED: PRED20TA PO (18:40)
[2019-03-24] MEDS ORDERED: AMOX1TAB61 PO (18:40)
[2019-03-24] MEDS ORDERED: MECL25TA3 PO (18:40)
[2019-03-24 18:44] VITALS: BP 165/90
[2019-03-24] MEDS ORDERED: DEXAMETHASONE SOD PHOS 4 MG/ML VIAL IVP ONE (18:45)
[2019-03-24] MEDS ORDERED: cefTRIAXone IV Push 1 GM VIAL. IVP ONE (18:45)
--- NOTE | 2019-03-29 08:01 | EKG ---
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
== END 2019-03-24 19:05 | disposition home or self-care (01) ==
LOC: MERGE 17:09 → ER 17:09
DX: R42 Dizziness and giddiness (principal); J32.0 Chronic maxillary sinusitis; R11.2 Nausea with vomiting, unspecified; E78.00 Pure hypercholesterolemia, unspecified; I12.9 Hypertensive chronic kidney disease with stage 1 through stage 4 chronic kidney disease, or unspecified chronic kidney disease; N18.9 Chronic kidney disease, unspecified; Z99.2 Dependence on renal dialysis; Z86.73 Personal history of transient ischemic attack (TIA), and cerebral infarction without residual deficits
CPT/HCPCS: 36415; 70450; 80053; 83735; 85007; 85025; 93005; 96374; 96375; 99285; J0696; J1100; J2060; J2405

== ENCOUNTER 2019-07-05 18:55 | Inpatient (IN) | payer MEDICARE, OTHER ==
[~2019-07-05] VITALS: Ht 181.6 cm; Wt 147.0 kg
[~2019-07-05 18:55] MED LIST changes: +AMOX1TAB61 PO; +MECL-75 PO; +PRED20TA PO
[2019-07-05 19:20] VITALS: BP 170/94
--- NOTE | 2019-07-05 19:30 | NUR ---
A 58Y. MALE ADMITTED FROM [facility] VIA AMBULANCE. PT ON A HEPARIN GTT PER DR CRUZ. A/OX4, ASSESSMENT COMPLETE, ORIENTED TO UNIT AND AND STAFF. ADMISSION PACKET GIVEN. WILL CONT TO MONITOR PT SAFETY AND STATUS. CALL LIGHT IN PLACE. PMRN
[2019-07-05] MEDS ORDERED: ATORVASTATIN CALCIUM 20 MG TABLET PO SCH (21:00)
[2019-07-05 23:02] LABS: CREATININE 18.6 mg/dL (0.7-1.3); GFR 3.2; POTASSIUM 3.8 mmol/L (3.5-5.1)
[2019-07-05 23:35] VITALS: BP 145/86
[2019-07-06] VITALS (13 sets, daily range): BP systolic 117–219; BP diastolic 74–105
[2019-07-06] MEDS ORDERED: HEPARIN 25,000UTS/250ML PREMIX 250 ML IV PRN (00:15)
[2019-07-06] MEDS ORDERED: HEPARIN for IV BOLUS 10,000 UNIT/10 ML VIAL. IV PRN (00:15)
[2019-07-06] MEDS ORDERED: ALLO100T PO (05:07)
[2019-07-06] MEDS ORDERED: EZET10TA20 PO (05:07)
[2019-07-06] MEDS ORDERED: HYDR-2869 PO (05:07)
[2019-07-06] MEDS ORDERED: SUCR500T PO (05:07)
[2019-07-06] MEDS ORDERED: SPIR25TA5 PO (05:07)
[2019-07-06] MEDS ORDERED: CALC0.25 PO (05:07)
[2019-07-06 05:35] LABS: BASO # 0.1 x10^3/uL (0.0-0.2); BASO % 1 % (0-3); EOS # 0.2 x10^3/uL (0.0-0.7); EOS % 3 % (0-3); HEMATOCRIT 31.3 % (39.0-53.0); HEMOGLOBIN 10.5 g/dL (13.0-17.5); LYMPH # 1.2 x10^3/uL (1.0-4.8); LYMPH % 15 % (24-48); MEAN CORPUSCULAR HEMOGLOBIN 32 pg (25-35); MEAN CORPUSCULAR HGB CONC 34 g/dL (31-37); MEAN CORPUSCULAR VOLUME 94 fL (79-100); MONO # 0.6 x10^3/uL (0.0-1.1); MONO % 8 % (0-9); NEUT % 74 % (31-73); PLATELET COUNT 206 x10^3/uL (140-400); RED BLOOD COUNT 3.31 x10^6/uL (4.30-5.70); RED CELL DISTRIBUTION WIDTH 14.7 % (11.5-14.5); WHITE BLOOD COUNT 8.1 x10^3/uL (4.0-11.0)
[2019-07-06 06:04] LABS: CALCIUM 6.9 mg/dL (8.5-10.1); CREATININE 18.9 mg/dL (0.7-1.3); GFR 3.1
[2019-07-06 06:36] LABS: CHOLESTEROL/HDL RATIO 6.2
[2019-07-06] MEDS ORDERED: amLODIPine BESYLATE 10 MG TABLET PO ONE (09:00)
[2019-07-06] MEDS ORDERED: HYDROcodone/APAP 5/325MG 1 TAB TABLET PO PRN (09:00)
--- NOTE | 2019-07-06 09:00 | PDOC2 ---
AMBAR GONZALEZ MICROCHIP SPECIALIST 07/06/19 0900: CARDIAC CONSULT DATE OF CONSULT Date of Consult DATE: 07/06/19 TIME: 08:44 REASON FOR CONSULT Reason for Consult: NSTEMI REFERRING PHYSICIAN Referring Physician: Piotr SOURCE Source: Chart review, Patient HISTORY OF PRESENT ILLNESS HISTORY OF PRESENT ILLNESS This is a pleasant 58 yo male admitted for complains of chest pain. Reports that he started having episodes of n/v Thursday last week. This Thursday he noticed that he has been having HERNANDEZ and exertional chest pressure. Reports that he was taking the trash out and he started having chest pressure. This got better 10 minutes after rest. Positive for palpitations and intermittent dizziness. He also noted himself with some dullness discomfort/heaviness mainly left side on his forehead with blurred vision to his left eye but no further recurrence. He checked his BP and had a SBP in the 170s. He was at the dialysis at some point this week as he is getting transitioned to HD from PD this Thursday and noted his BP was in the 220s/120s. Presently his SBP is in the 70s. Presently not having any chest discomfort but his HERNANDEZ and exertional CP this week was consistent. He also had some heviness to his left arm but no unilateraal weakness. He had CVA last time in 2013 with some weakness to his left leg and intermittent dysarthria as residuals. PAST MEDICAL HISTORY Cardiovascular: CAD, CHF, HTN, Hyperlipidemia, Other (ICM) Pulmonary: Other (ALISSA) CENTRAL NERVOUS SYSTEM: CVA Psych: Anxiety Musculoskeletal: Osteoarthritis Rheumatologic: Gout Renal/: Chronic renal failure (ESRD with PD) Endocrine: Other (metabolic syndrome) Dermatology: No pertinent hx PAST SURGICAL HISTORY Past Surgical History PD cath placement, LHC, neck cyst removal FAMILY HISTORY Family History noncontributory SOCIAL HISTORY Smoke: No ALCOHOL: none Drugs: None Lives: with Family CURRENT MEDICATIONS CURRENT MEDICATIONS Current Medications Medications (Trade) Dose Ordered Sig/Iván Route PRN Reason Start Time Stop Time Status Last Admin Dose Admin Atorvastatin Calcium (Lipitor) 20 mg QHS PO 07/05/19 21:00 07/05/19 21:27 Hydralazine HCl (Apresoline) 50 mg TID PO 07/05/19 21:00 07/05/19 21:27 Heparin Sodium/ Dextrose 250 ml @ 0 mls/hr CONT PRN IV PER PROTOCOL 07/06/19 00:15 07/06/19 07:22 ALLERGIES ALLERGIES: Coded Allergies: No Known Allergies (Verified Allergy, Unknown, 09/15/18) ROS Review of System 14 point ROS evaluated with pertinent positives noted per HPI PHYSICAL EXAM General: Alert, Oriented X3, Cooperative, No acute distress HEENT: Atraumatic, Mucous membr. moist/pink Lungs: Clear to auscultation, Normal air movement Heart: Regular rate (SR), Normal S1, Normal S2, Other (3/6 diastolic murmur to ARUNA border) Abdomen: Soft, No tenderness, Other (truncal obesity) Extremities: No cyanosis, Other (2+ bilateral LE pitting edema) Skin: No breakdown, No significant lesion Neuro: Normal speech, Sensation intact Psych/Mental Status: Mental status NL, Mood NL MUSCULOSKELETAL: Osteoarthritic changes both hands VITALS/I&O VITALS/I&O: Vital Signs Date Time Temp Pulse Resp B/P (MAP) Pulse Ox O2 Delivery O2 Flow Rate FiO2 07/06/19 03:45 97.8 76 20 176/85 (115) 96 Room Air 97.8 07/05/19 23:35 2.0 I & O 07/05/19 07/05/19 07/06/19 15:00 23:00 07:00 Intake Total 300 ml 200 ml Balance 300 ml 200 ml LABS Lab: Laboratory Tests Test 07/05/19 20:52 07/05/19 22:45 07/06/19 05:10 07/06/19 08:09 Glucose (Fingerstick) 87 mg/dL (70-99) 99 mg/dL (70-99) Heparin Anti-Xa Act, Unfractionated 0.48 IU/mL (0.30-0.70) 0.43 IU/mL (0.30-0.70) Sodium Level 140 mmol/L (136-145) 141 mmol/L (136-145) Potassium Level 3.8 mmol/L (3.5-5.1) 4.0 mmol/L (3.5-5.1) Chloride Level 96 mmol/L (98-107) L 98 mmol/L (98-107) Carbon Dioxide Level 29 mmol/L (21-32) 29 mmol/L (21-32) Anion Gap 15 (6-14) H 14 (6-14) Blood Urea Nitrogen 62 mg/dL (8-26) H 63 mg/dL (8-26) H Creatinine 18.6 mg/dL (0.7-1.3) H 18.9 mg/dL (0.7-1.3) H Estimated GFR (Cockcroft-Gault) 3.2 3.1 Glucose Level 108 mg/dL (70-99) H 97 mg/dL (70-99) Calcium Level 7.0 mg/dL (8.5-10.1) L 6.9 mg/dL (8.5-10.1) L Troponin I Quantitative 2.145 ng/mL (0.000-0.055) 1.974 ng/mL (0.000-0.055) White Blood Count 8.1 x10^3/uL (4.0-11.0) Red Blood Count 3.31 x10^6/uL (4.30-5.70) L Hemoglobin 10.5 g/dL (13.0-17.5) L Hematocrit 31.3 % (39.0-53.0) L Mean Corpuscular Volume 94 fL (79-100) Mean Corpuscular Hemoglobin 32 pg (25-35) Mean Corpuscular Hemoglobin Concent 34 g/dL (31-37) Red Cell Distribution Width 14.7 % (11.5-14.5) H Platelet Count 206 x10^3/uL (140-400) Neutrophils (%) (Auto) 74 % (31-73) H Lymphocytes (%) (Auto) 15 % (24-48) L Monocytes (%) (Auto) 8 % (0-9) Eosinophils (%) (Auto) 3 % (0-3) Basophils (%) (Auto) 1 % (0-3) Neutrophils # (Auto) 6.0 x10^3/uL (1.8-7.7) Lymphocytes # (Auto) 1.2 x10^3/uL (1.0-4.8) Monocytes # (Auto) 0.6 x10^3/uL (0.0-1.1) Eosinophils # (Auto) 0.2 x10^3/uL (0.0-0.7) Basophils # (Auto) 0.1 x10^3/uL (0.0-0.2) Triglycerides Level 191 mg/dL (0-150) H Cholesterol Level 180 mg/dL (0-200) LDL Cholesterol, Calculated 113 mg/dL (0-100) H VLDL Cholesterol, Calculated 38 mg/dL (0-40) Non-HDL Cholesterol Calculated 151 mg/dL (0-129) H HDL Cholesterol 29 mg/dL (40-60) L Cholesterol/HDL Ratio 6.2 Laboratory Tests 07/06/19 05:10 Laboratory Tests 07/05/19 22:45 07/06/19 05:10 ECHOCARDIOGRAM ECHOCARDIOGRAM <Conclusion> The left ventricular systolic function is normal. The Ejection Fraction is 55-60%. There is normal LV segmental wall motion. Transmitral Doppler flow pattern is Grade I-abnormal relaxation pattern. Mild aortic regurgitation. There is no evidence of significant pericardial effusion. DATE: 10/12/18 1422 HEART CATH HEART CATH Findings. Hemodynamics. Aortic root pressure of 128/70. Coronaries. Left main. The left main was a relatively short vessel. It had no lesions. LAD. The LAD was a moderate size vessel that tapered to a small distal vessel. There was a mid 35% lesion in the mid to distal 30% lesion. Left circumflex. The left circumflex was a larger vessel. It had a relatively small OM1 that had a 40-50% lesion. There was diffuse distal small vessel disease present. Right coronary artery. The right coronary was a moderately large vessel. There was a proximal 10% lesion. It also had distal small vessel disease. <Conclusion> Moderate coronary artery disease. Small vessel distal disease in the left circumflex and right coronary arteries. DATE: 03/06/17 1143 ASSESSMENT/PLAN ASSESSMENT/PLAN 1. NSTEMI: peaked at 2.1. EKG with LBBB and ST depression to V5-V6 2. Hypertensive encephalopathy 3. CAD: 2017 [facility] showed mild and moderate disease 4. HTN: labile 5. HLP: not on goal with statin 6. Metabolic syndrome 7. ESRD: on PD and transitioning to HD tentatively this Thursday with his LA AV fistula per pt 8. Hx of ICM: recovered 9. Right Maxillary sinusitis: chronic? Recommendations 1. Heparin drip, ASA. Norvasc x1 2. [facility] today with possible PCI, risks and benefits discussed and agreeable to proceed 3. GDMT post [facility] MELODIE GR MD 07/06/19 1222: CARDIAC CONSULT ASSESSMENT/PLAN ASSESSMENT/PLAN Patient seen and examined Non-ST elevated myocardial infarction. Peak troponin of 2.1. Previous catheterization with diffuse small vessel distal disease. Episodes of chest pain as above but severely elevated blood pressure. In this setting I have recommended cardiac catheterization to the patient. Risks and benefits have been discussed and he has agreed to proceed. Accelerated hypertension. Increasing medical treatment. End-stage renal disease. On peritoneal dialysis and being transitioned to hemodialysis by the renal service. History of ischemic cardiomyopathy. Catheter and echo as above. Hyperlipidemia. Monitoring lab. Thank you for allowing us to participate in the care of your patient. AMBAR GONZALEZ APRN Jul 06, 2019 09:00 MELODIE GR MD Jul 06, 2019 12:22
--- NOTE | 2019-07-06 09:07 | PDOC1 ---
History and Physical Date of Admission Date of Admission DATE: 07/06/19 TIME: 08:51 Source Source: Chart review, Patient History of Present Illness History of Present Illness Mr. Ornelas, presents with report of significant elevated blood pressure at dialysis today. Patient undergoes daily peritoneal dialysis. Patient reports concern for left facial "heaviness" that has been ongoing for the past 7 days. NIHSS 0. Blood pressure addressed. EKG with nonspecific findings. Labs obtained and posted to chart. Creatinine 18.8. Potassium within normal limits. Troponin 2.147. Upon further investigation patient does report some chest discomfort over the past few days with dyspnea on exertion yesterday. Per [facility] review patient does have some slightly bumped troponins in the past but have never been above 0.6. transferred here for an STEMI. Heparin bolus and drip initiated. Drs. Addison and Elise called last night Past Medical History Cardiovascular: CAD, HTN, Hyperlipidemia Pulmonary: Bronchitis CENTRAL NERVOUS SYSTEM: CVA GI: Peptic Ulcer disease Psych: Anxiety Musculoskeletal: Osteoarthritis Rheumatologic: Gout Renal/: Other Endocrine: Diabetes Past Surgical History Past Surgical History: Other Family History Family History: Heart Disease, Hypertension Social History Smoke: No ALCOHOL: none Drugs: None Current Medications Current Medications Current Medications Atorvastatin Calcium (Lipitor) 20 mg QHS PO Last administered on 07/05/19at 21:27; Start 07/05/19 at 21:00 Hydralazine HCl (Apresoline) 50 mg TID PO Last administered on 07/05/19at 21:27; Start 07/05/19 at 21:00 Heparin Sodium/ Dextrose 250 ml @ 0 mls/hr CONT PRN IV PER PROTOCOL Last administered on 07/06/19at 07:22; Start 07/06/19 at 00:15 Heparin Sodium (Porcine) (Heparin Sodium) 3,550 unit PRN Q6HRS PRN IV FOR UFH LEVEL LESS THAN 0.2; Start 07/06/19 at 00:15 Active Scripts Active Meclizine Hcl 25 Mg Tablet 1 Tab PO PRN TID PRN Reported Velphoro (Sucroferric Oxyhydroxide) 500 Mg Tab.chew 500 Mg PO TIDWMEALS Calcitriol 0.25 Mcg Capsule 0.25 Mcg PO DAILY Hydralazine Hcl 50 Mg Tablet 50 Mg PO TID Zetia (Ezetimibe) 10 Mg Tablet 10 Mg PO DAILY Spironolactone 25 Mg Tablet 25 Mg PO DAILY Allopurinol 100 Mg Tablet 100 Mg PO DAILY 1/2 tab po daily [place] 5-325 Tablet (Acetaminophen/Hydrocodone Bitart) 1 Each Tablet 1-2 Tab PO Q4-6HRS Ferric Citrate 210 Mg Tablet 210 Mg PO TIDAC 2 tabs for breakfast and lunch, 3 tabs for dinner Carvedilol (Carvedilol) 3.125 Mg Tablet 25 Mg PO BIDWMEALS Furosemide 40 Mg Tablet 1 Tab PO BID Atorvastatin Calcium 20 Mg Tablet 1 Tab PO QHS Renagel (Sevelamer Hcl) 800 Mg Tablet 800 Mg PO TIDWMEALS Allergies Allergies: Coded Allergies: No Known Allergies (Verified Allergy, Unknown, 09/15/18) ROS General: YES: Fatigue; No: Chills, Night Sweats, Malaise, Appetite, Other PSYCHOLOGICAL ROS: No: Anxiety, Behavioral Disorder, Concentration difficultie, Decreased libido, Depression, Disorientation, Hallucinations, Hostility, Irritablity, Memory difficulties, Mood Swings, Obsessive thoughts, Physical abuse, Sexual abuse, Sleep disturbances, Suicidal ideation, Other Eyes: No Blurry vision, No Decreased vision, No Double vision, No Dry eyes, No Excessive tearing, No Eye Pain, No Itchy Eyes, No Loss of vision, No Photophobia, No Scotomata, No Uses contacts, No Uses glasses, No Other HEENT: No: Heacaches, Visual Changes, Hearing change, Nasal congestion, Nasal discharge, Oral lesions, Sinus pain, Sore Throat, Epistaxis, Sneezing, Snoring, Tinnitus, Vertigo, Vocal changes, Other Respiratory: No: Cough, Hemoptysis, Orthopnea, Pleuritic Pain, Shortness of breath, SOB with excertion, Sputum Changes, Stridor, Tachypnea, Wheezing, Other Cardiovascular: No Chest Pain, No Palpitations, No Orthopnea, No Paroxysmal Noc. Dyspnea, No Edema, No Lt Headedness, No Other Gastrointestinal: Yes Nausea; No Vomiting, No Abdominal Pain, No Diarrhea, No Constipation, No Melena, No Hematochezia, No Other Genitourinary: No Dysuria, No Frequency, No Incontinence, No Hematuria, No Ret ention, No Discharge, No Urgency, No Pain, No Flank Pain, No Other, No , No , No , No , No , No , No Musculoskeletal: Yes Joint Stiffness; No Gait Disturbance, No Joint Pain, No Joint Swelling, No Muscle Pain, No Muscular Weakness, No Pain In:, No Swelling In:, No Other Neurological: No Behavorial Changes, No Bowel/Bladder ControlChng, No Confusion, No Dizziness, No Gait Disturbance, No Headaches, No Impaired Coord/balance, No Memory Loss, No Numbness/Tingling, No Seizures, No Speech Problems, No Tremors, No Visual Changes, No Weakness, No Other Skin: No Dry Skin, No Eczema, No Hair Changes, No Lumps, No Mole Changes, No Mottling, No Nail Changes, No Pruritus, No Rash, No Skin Lesion Changes, No Other, No Acne Physical Exam General: Alert, Oriented X3, Cooperative, No acute distress HEENT: Atraumatic, PERRLA, EOMI, Mucous membr. moist/pink Lungs: Clear to auscultation Heart: S1S2, RRR, no gallops, no murmurs Abdomen: Normal bowel sounds, Soft Rectal Exam: not examined Extremities: No clubbing, No edema, Normal pulses Skin: No rashes, No significant lesion Neuro: Normal gait, Normal speech, Strength at 5/5 X4 ext, Sensation intact, Cranial nerves 3-12 NL Psych/Mental Status: Mental status NL, Mood NL Vitals Vitals Vital Signs Date Time Temp Pulse Resp B/P (MAP) Pulse Ox O2 Delivery O2 Flow Rate FiO2 07/06/19 03:45 97.8 76 20 176/85 (115) 96 Room Air 97.8 07/05/19 23:35 2.0 Labs Labs Laboratory Tests Test 07/05/19 20:52 07/05/19 22:45 07/06/19 05:10 07/06/19 08:09 Glucose (Fingerstick) 87 mg/dL (70-99) 99 mg/dL (70-99) Heparin Anti-Xa Act, Unfractionated 0.48 IU/mL (0.30-0.70) 0.43 IU/mL (0.30-0.70) Sodium Level 140 mmol/L (136-145) 141 mmol/L (136-145) Potassium Level 3.8 mmol/L (3.5-5.1) 4.0 mmol/L (3.5-5.1) Chloride Level 96 mmol/L (98-107) 98 mmol/L (98-107) Carbon Dioxide Level 29 mmol/L (21-32) 29 mmol/L (21-32) Anion Gap 15 (6-14) 14 (6-14) Blood Urea Nitrogen 62 mg/dL (8-26) 63 mg/dL (8-26) Creatinine 18.6 mg/dL (0.7-1.3) 18.9 mg/dL (0.7-1.3) Estimated GFR (Cockcroft-Gault) 3.2 3.1 Glucose Level 108 mg/dL (70-99) 97 mg/dL (70-99) Calcium Level 7.0 mg/dL (8.5-10.1) 6.9 mg/dL (8.5-10.1) Troponin I Quantitative 2.145 ng/mL (0.000-0.055) 1.974 ng/mL (0.000-0.055) White Blood Count 8.1 x10^3/uL (4.0-11.0) Red Blood Count 3.31 x10^6/uL (4.30-5.70) Hemoglobin 10.5 g/dL (13.0-17.5) Hematocrit 31.3 % (39.0-53.0) Mean Corpuscular Volume 94 fL (79-100) Mean Corpuscular Hemoglobin 32 pg (25-35) Mean Corpuscular Hemoglobin Concent 34 g/dL (31-37) Red Cell Distribution Width 14.7 % (11.5-14.5) Platelet Count 206 x10^3/uL (140-400) Neutrophils (%) (Auto) 74 % (31-73) Lymphocytes (%) (Auto) 15 % (24-48) Monocytes (%) (Auto) 8 % (0-9) Eosinophils (%) (Auto) 3 % (0-3) Basophils (%) (Auto) 1 % (0-3) Neutrophils # (Auto) 6.0 x10^3/uL (1.8-7.7) Lymphocytes # (Auto) 1.2 x10^3/uL (1.0-4.8) Monocytes # (Auto) 0.6 x10^3/uL (0.0-1.1) Eosinophils # (Auto) 0.2 x10^3/uL (0.0-0.7) Basophils # (Auto) 0.1 x10^3/uL (0.0-0.2) Triglycerides Level 191 mg/dL (0-150) Cholesterol Level 180 mg/dL (0-200) LDL Cholesterol, Calculated 113 mg/dL (0-100) VLDL Cholesterol, Calculated 38 mg/dL (0-40) Non-HDL Cholesterol Calculated 151 mg/dL (0-129) HDL Cholesterol 29 mg/dL (40-60) Cholesterol/HDL Ratio 6.2 Laboratory Tests Test 07/05/19 20:52 07/05/19 22:45 07/06/19 05:10 07/06/19 08:09 Glucose (Fingerstick) 87 mg/dL (70-99) 99 mg/dL (70-99) Heparin Anti-Xa Act, Unfractionated 0.48 IU/mL (0.30-0.70) 0.43 IU/mL (0.30-0.70) Sodium Level 140 mmol/L (136-145) 141 mmol/L (136-145) Potassium Level 3.8 mmol/L (3.5-5.1) 4.0 mmol/L (3.5-5.1) Chloride Level 96 mmol/L (98-107) 98 mmol/L (98-107) Carbon Dioxide Level 29 mmol/L (21-32) 29 mmol/L (21-32) Anion Gap 15 (6-14) 14 (6-14) Blood Urea Nitrogen 62 mg/dL (8-26) 63 mg/dL (8-26) Creatinine 18.6 mg/dL (0.7-1.3) 18.9 mg/dL (0.7-1.3) Estimated GFR (Cockcroft-Gault) 3.2 3.1 Glucose Level 108 mg/dL (70-99) 97 mg/dL (70-99) Calcium Level 7.0 mg/dL (8.5-10.1) 6.9 mg/dL (8.5-10.1) Troponin I Quantitative 2.145 ng/mL (0.000-0.055) 1.974 ng/mL (0.000-0.055) White Blood Count 8.1 x10^3/uL (4.0-11.0) Red Blood Count 3.31 x10^6/uL (4.30-5.70) Hemoglobin 10.5 g/dL (13.0-17.5) Hematocrit 31.3 % (39.0-53.0) Mean Corpuscular Volume 94 fL (79-100) Mean Corpuscular Hemoglobin 32 pg (25-35) Mean Corpuscular Hemoglobin Concent 34 g/dL (31-37) Red Cell Distribution Width 14.7 % (11.5-14.5) Platelet Count 206 x10^3/uL (140-400) Neutrophils (%) (Auto) 74 % (31-73) Lymphocytes (%) (Auto) 15 % (24-48) Monocytes (%) (Auto) 8 % (0-9) Eosinophils (%) (Auto) 3 % (0-3) Basophils (%) (Auto) 1 % (0-3) Neutrophils # (Auto) 6.0 x10^3/uL (1.8-7.7) Lymphocytes # (Auto) 1.2 x10^3/uL (1.0-4.8) Monocytes # (Auto) 0.6 x10^3/uL (0.0-1.1) Eosinophils # (Auto) 0.2 x10^3/uL (0.0-0.7) Basophils # (Auto) 0.1 x10^3/uL (0.0-0.2) Triglycerides Level 191 mg/dL (0-150) Cholesterol Level 180 mg/dL (0-200) LDL Cholesterol, Calculated 113 mg/dL (0-100) VLDL Cholesterol, Calculated 38 mg/dL (0-40) Non-HDL Cholesterol Calculated 151 mg/dL (0-129) HDL Cholesterol 29 mg/dL (40-60) Cholesterol/HDL Ratio 6.2 VTE Prophylaxis Ordered VTE Prophylaxis Devices: Yes VTE Pharmacological Prophylaxi: Yes Assessment/Plan Assessment/Plan NSTEMI ESRD, has left arm fistula for HD, currently does PD, is full of fluid and needs drained currently, he would like to change back to HD TIA, facial weakness and trouble speaking resolved, prior stroke x2, he has r ehabbed well, is currently disabled but has improved markedly htn, hyperlidpids obese, BMI 32 DALLAS Padilla MD Jul 06, 2019 09:06
--- NOTE | 2019-07-06 09:19 | EKG ---
[facility] [address] [place] [address] Test Date: 2019-07-06 Test Time: 09:17:47 Pat Name: DOUG GUY Department: Room: 262 1 Gender: M Chiropractic Care: : 1960 Requested By: AMBAR GONZALEZ Order Number: [id number] Reading MD: Measurements Intervals [place] Rate: 83 P: 0 MO: 184 QRS: 30 QRSD: 118 T: 24 QT: 424 QTc: 499 Interpretive Statements SINUS RHYTHM T ABNORMALITY IN ANTEROLATERAL LEADS PROLONGED QT ABNORMAL ECG RI6.02 Compared to ECG 03/24/2019 17:13:47 T-wave abnormality now present Left-axis deviation no longer present Left anterior fascicular block no longer present Left ventricular hypertrophy no longer present
[2019-07-06] MEDS ORDERED: amLODIPine BESYLATE 5 MG TABLET ONE (09:35)
[2019-07-06] MEDS ORDERED: NITROGLYCERIN 200 MCG/2 ML SYRINGE FOR CATH/VASC LAB. ONE (09:46)
[2019-07-06] MEDS ORDERED: VERAPAMIL 5 MG/2 ML VIAL. ONE (09:46)
[2019-07-06] MEDS ORDERED: LIDOCAINE 1% Multi-Dose 20 ML VIAL. ONE (09:46)
[2019-07-06] MEDS ORDERED: fentaNYL PF VIAL 100 MCG/2 ML VIAL ONE (09:46)
[2019-07-06] MEDS ORDERED: MIDAZOLAM HCL/PF 5 MG/5 ML VIAL. ONE (09:46)
[2019-07-06] MEDS ORDERED: HEPARIN for IV BOLUS 10,000 UNIT/10 ML VIAL. ONE (09:48)
--- NOTE | 2019-07-06 10:15 | PDOC ---
MODERATE SEDATION ASSESSMENT RISKS/ALTERNATIVES Risks/Alternatives Risks and alternatives of this type of sedation and procedure discussed with: RISK/ALTERNATIVES: Patient H & P ON CHART H & P H & P on chart and reviewed for co-morbid conditions and appropriate labs. H&P ON CHART: Yes STATUS PREG STATUS ASSESSED: N/A MEDS/ALLERGIES REVIEWED Meds/Allergies Reviewed Medications and Allergies including time and route of recently administered narcotics and sedatives. MEDS/ALLERGIES REVIEWED: Yes ASA RATING ASA RATING: II AIRWAY ASSESSMENT Airway Assessment Airway patency, oral function limitations, presence of caps, crowns, dentures, partials, and ability to extend neck assessed. AIRWAY ASSESSMENT: Yes MALLAMPATI SCORE MALLAMPATI SCORE: II PRE-SEDATION ASSESSMENT PRE-SEDATION ASSESSMENT: Yes MELODIE GR MD Jul 06, 2019 10:15
[2019-07-06] MEDS ORDERED: MIDAZOLAM HCL/PF 5 MG/5 ML VIAL. IV ONE (10:45)
[2019-07-06] MEDS ORDERED: fentaNYL PF VIAL 100 MCG/2 ML VIAL IV ONE (10:45)
[2019-07-06] MEDS ORDERED: VERAPAMIL 5 MG/2 ML VIAL. IART ONE (10:45)
[2019-07-06] MEDS ORDERED: IODIXANOL 320 MG/ML 100 ML VIAL. IART ONE (10:45)
[2019-07-06] MEDS ORDERED: HEPARIN for IV BOLUS 10,000 UNIT/10 ML VIAL. IART ONE (10:45)
[2019-07-06] MEDS ORDERED: LIDOCAINE 1% Multi-Dose 20 ML VIAL. INJ ONE (10:45)
[2019-07-06] MEDS ORDERED: NITROGLYCERIN 200 MCG/2 ML SYRINGE FOR CATH/VASC LAB. IART ONE (10:45)
[2019-07-06] MEDS ORDERED: IV NORMAL SALINE 1000ML BAG 1,000 ML IV SCH (10:54)
[2019-07-06] MEDS ORDERED: CONTRAST GIVEN. MC PRN (11:00)
[2019-07-06] MEDS ORDERED: NITROGLYCERIN SUBLINGUAL 0.4 MG BOTTLE OF 25. SL PRN (11:00)
[2019-07-06] MEDS ORDERED: 0.9 % SODIUM CHLORIDE 10 ML DISP.SYRIN. IV PRN (11:00)
[2019-07-06] MEDS: SEVELAMER CARBONATE 800 MG TABLET. PO SCH ×2 (11:49→21:25)
[2019-07-06] MEDS: SPIRONOLACTONE 25 MG TABLET PO SCH (11:49)
[2019-07-06] MEDS: CALCITRIOL 0.25 MCG CAPSULE. PO SCH (11:49)
[2019-07-06] MEDS: ALLOPURINOL 100 MG TABLET. PO SCH (11:49)
[2019-07-06] MEDS: EZETIMIBE 10 MG TABLET. PO SCH (11:50)
[2019-07-06] MEDS: CARVEDILOL 12.5 MG TABLET. PO SCH ×2 (11:50→17:00)
--- NOTE | 2019-07-06 11:57 | NUR ---
SS following for discharge planning. SS reviewed pt chart. Pt is from home and is currently on room air. SS will continue to follow for discharge planning.
--- NOTE | 2019-07-06 12:03 | CARD ---
MR#: [id number] Date of Study: 07/06/2019 Ordering Physician: AMBAR GONZALEZ, Referring Physician: AMBAR GONZALEZ, [place]: Arianne Cramer APPROVED REPORT Procedures Left heart catheterization Selective coronary angiogram Left ventriculogram. The patient is a 58-year-old male with a history of distal small vessel coronary artery disease and e nd-stage renal disease who developed some episodes of chest pressure. This is associated with signifi cant hypertension and also a troponin of approximately 2.0. Options were discussed with the patient a t this point believe cardiac catheterization is appropriate. Risks and benefits were further discusse d with the patient has agreed to proceed. After informed consent was obtained the patient was brought to the heart catheterization lab. The are a of the right radial artery was prepared in the usual manner with Betadine, sterile draping and loca l anesthetic after a normal Brennen's test. A quick catheter was used to engage the right radial artery , a wire placed and a 6 [place]ian sheath placed over the wire. The standard mixture heparin and antispas m medications was administered through the sheath. Using a J-wire a 6 [place] JL 4 diagnostic catheter was advanced ascending aorta. It was then used to engage the left system and sequential injections i n various views were obtained. Using an exchange wire technique a 6 [place] JR 4 catheter was advanced to the ascending aorta. It was used to engage the right coronary artery and sequential injections in various views were obtained. A pigtail catheter was then advanced to the ascending aorta and the sim ilar fashion. It was passed to the left ventricle. Pressures were obtained. A 30 BLOOM left ventriculo gram was performed. Pullback pressures were measured. The catheter was removed from patient. The tang th was removed from the patient and sealed in the typical manner with a TR band. The patient was retu rned to the holding area in stable condition. Findings. Hemodynamics. LV pressure 146/10/26. Aortic root pressure 140/74. Coronaries Left main. Left main was a large size vessel. It had minimal disease of 5%. Left anterior descending. The left anterior descending was a moderately large vessel. It had normal d istribution. It had a mid 40% lesion and a mid to distal 35% lesion. The first diagonal had a 40% les ion. Left circumflex. The left circumflex was a large dominant vessel. It had a mid 10% lesion had diffuse small vessel disease very distally. Lesions were greater than 80%. Right coronary artery. The right coronary was a moderately large vessel. It had a proximal 25% lesion . It also had distal small vessel disease of 80%. Left ventriculogram. The left ventricle on a limited study showed an ejection fraction estimated at 35-40%. <Conclusion> Moderate coronary artery disease in all 3 vessels. Diffuse relatively severe very distal small vessel disease in the left circumflex and right coronary artery. Moderately decreased LV systolic function on a technically limited LV gram. Signed by : Porter Hodge MD Electronically Approved : 07/06/2019 12:02:44
--- NOTE | 2019-07-06 14:26 | PDOC2 ---
CONSULT Date of Consult Date of Consult DATE: 07/06/19 TIME: 14:20 Reason for Consult Reason for Consult: ESRD Referring Physician Referring Physician: ADELINA Identification/Chief Complaint Chief Complaint SOB, CHEST PAIN AND HIGH BP Source Source: Chart review, Patient History of Present Illness Reason for Visit: THIS IS A 58 YR OLD ESRD PT WITH SOB AND HIGH BP. HAS BEEN ALSO HAVING SOME CHEST PAIN AND IS UNDERGOING CARDIOLOGY EVALUATION. LABS ARE C/W ESRD. HE WAS ON HD THEN STARTED PD. NOW HE IS IN THE PROCESS OF CHANGING BACK TO HD. HE HAS A LEFT ARM BB AVF WHICH HAS BEEN USED BEFORE Past Medical History Cardiovascular: CAD, CHF, HTN, Hyperlipidemia, Other (ICM) Pulmonary: Other (ALISSA) CENTRAL NERVOUS SYSTEM: CVA GI: Peptic Ulcer disease Psych: Anxiety Musculoskeletal: Osteoarthritis Rheumatologic: Gout Renal/: Chronic renal failure (ESRD with PD) Endocrine: Hyperparathyroidism, Other (metabolic syndrome) Dermatology: No pertinent hx Past Surgical History Past Surgical History: Other (HX OF PD CATHETER AND LEFT ARM AVF) Family History Family History: Heart Disease, Hypertension Social History No ALCOHOL: none Drugs: None Lives: with Family Current Medications Current Medications Current Medications Atorvastatin Calcium (Lipitor) 20 mg QHS PO Last administered on 07/05/19at 21:27; Start 07/05/19 at 21:00 Hydralazine HCl (Apresoline) 50 mg TID PO Last administered on 07/06/19at 11:50; Start 07/05/19 at 21:00 Heparin Sodium/ Dextrose 250 ml @ 0 mls/hr CONT PRN IV PER PROTOCOL Last administered on 07/06/19at 07:22; Start 07/06/19 at 00:15 Heparin Sodium (Porcine) (Heparin Sodium) 3,550 unit PRN Q6HRS PRN IV FOR UFH LEVEL LESS THAN 0.2; Start 07/06/19 at 00:15 Allopurinol (Zyloprim) 100 mg DAILY PO Last administered on 07/06/19at 11:49; Start 07/06/19 at 09:00 Atorvastatin Calcium (Lipitor) 20 mg QHS PO ; Start 07/06/19 at 21:00; Status Cancel Calcitriol (Rocaltrol) 0.25 mcg DAILY PO Last administered on 07/06/19at 11:49; Start 07/06/19 at 09:00 Carvedilol (Coreg) 25 mg BIDWMEALS PO Last administered on 07/06/19at 11:50; Start 07/06/19 at 09:30 EZETIMIBE (Zetia) 10 mg DAILY PO Last administered on 07/06/19at 11:50; Start 07/06/19 at 09:00 Hydralazine HCl (Apresoline) 50 mg TID PO ; Start 07/06/19 at 09:00; Stop 07/06/19 at 13:52; Status DC Acetaminophen/ Hydrocodone Bitart (Lortab 5/325) 1 tab PRN Q4HRS PRN PO pain; Start 07/06/19 at 09:00 Spironolactone (Aldactone) 25 mg DAILY PO Last administered on 07/06/19at 11:49; Start 07/06/19 at 09:00 Sevelamer Carbonate (Renvela) 800 mg TIDWMEALS PO Last administered on 07/06/19at 11:49; Start 07/06/19 at 12:00 Amlodipine Besylate (Norvasc) 10 mg 1X ONCE PO Last administered on 07/06/19at 09:46; Start 07/06/19 at 09:00; Stop 07/06/19 at 09:34; Status DC Amlodipine Besylate (Norvasc) 5 mg STK-MED ONCE .ROUTE ; Start 07/06/19 at 09:35; Stop 07/06/19 at 09:35; Status DC Fentanyl Citrate (Fentanyl 2ml Vial) 100 mcg STK-MED ONCE .ROUTE ; Start 07/06/19 at 09:46; Stop 07/06/19 at 09:46; Status DC Midazolam HCl (Versed) 5 mg STK-MED ONCE .ROUTE ; Start 07/06/19 at 09:46; Stop 07/06/19 at 09:46; Status DC Verapamil HCl (Verapamil) 5 mg STK-MED ONCE .ROUTE ; Start 07/06/19 at 09:46; Stop 07/06/19 at 09:46; Status DC Lidocaine HCl (Lidocaine 1% 20ml Vial) 20 ml STK-MED ONCE .ROUTE ; Start 07/06/19 at 09:46; Stop 07/06/19 at 09:47; Status DC Heparin Sodium/ Sodium Chloride 1,000 ml @ As Directed STK-MED ONCE .ROUTE ; Start 07/06/19 at 09:46; Stop 07/06/19 at 09:47; Status DC Nitroglycerin (Nitroglycerin) 200 mcg STK-MED ONCE .ROUTE ; Start 07/06/19 at 09:46; Stop 07/06/19 at 09:47; Status DC Heparin Sodium (Porcine) (Heparin Sodium) 10,000 unit STK-MED ONCE .ROUTE ; Start 07/06/19 at 09:48; Stop 07/06/19 at 09:48; Status DC Nitroglycerin (Nitroglycerin) 200 mcg 1X ONCE IART Last administered on 07/06/19at 10:51; Start 07/06/19 at 10:45; Stop 07/06/19 at 10:51; Status DC Verapamil HCl (Verapamil) 2.5 mg 1X ONCE IART Last administered on 07/06/19at 10:57; Start 07/06/19 at 10:45; Stop 07/06/19 at 10:51; Status DC Heparin Sodium (Porcine) (Heparin Sodium) 2,500 unit 1X ONCE IART Last administered on 07/06/19at 10:58; Start 07/06/19 at 10:45; Stop 07/06/19 at 10:51; Status DC Heparin Sodium/ Sodium Chloride (HEPARIN for ARTERIAL LINE FLUSH) 1,000 unit 1X ONCE IART Last administered on 07/06/19at 10:50; Start 07/06/19 at 10:45; Stop 07/06/19 at 10:51; Status DC Heparin Sodium/ Sodium Chloride (HEPARIN for ARTERIAL LINE FLUSH) 1,000 unit 1X ONCE IART Last administered on 07/06/19at 10:50; Start 07/06/19 at 10:45; Stop 07/06/19 at 10:51; Status DC Midazolam HCl (Versed) 5 mg 1X ONCE IV Last administered on 07/06/19at 10:56; Start 07/06/19 at 10:45; Stop 07/06/19 at 10:51; Status DC Fentanyl Citrate (Fentanyl 2ml Vial) 100 mcg 1X ONCE IV Last administered on 07/06/19at 10:57; Start 07/06/19 at 10:45; Stop 07/06/19 at 10:51; Status DC Iodixanol (Visipaque 320) 100 ml 1X ONCE IART Last administered on 07/06/19at 10:55; Start 07/06/19 at 10:45; Stop 07/06/19 at 10:51; Status DC Lidocaine HCl (Lidocaine 1% 20ml Vial) 20 ml 1X ONCE INJ Last administered on 07/06/19at 10:56; Start 07/06/19 at 10:45; Stop 07/06/19 at 10:51; Status DC Info (CONTRAST GIVEN -- Rx MONITORING) 1 each PRN DAILY PRN MC SEE COMMENTS; Start 07/06/19 at 11:00; Stop 07/08/19 at 10:59 Sodium Chloride (Normal Saline Flush) 3 ml QSHIFT PRN IV AFTER MEDS AND BLOOD DRAWS; Start 07/06/19 at 11:00 Sodium Chloride 1,000 ml @ 60 mls/hr [id number] IV ; Start 07/06/19 at 10:54; Stop 07/06/19 at 14:53 Nitroglycerin (Nitrostat) 0.4 mg PRN Q5MIN PRN SL CHEST PAIN; Start 07/06/19 at 11:00 Active Scripts Active Meclizine Hcl 25 Mg Tablet 1 Tab PO PRN TID PRN Reported Velphoro (Sucroferric Oxyhydroxide) 500 Mg Tab.chew 500 Mg PO TIDWMEALS Calcitriol 0.25 Mcg Capsule 0.25 Mcg PO DAILY Hydralazine Hcl 50 Mg Tablet 50 Mg PO TID Zetia (Ezetimibe) 10 Mg Tablet 10 Mg PO DAILY Spironolactone 25 Mg Tablet 25 Mg PO DAILY Allopurinol 100 Mg Tablet 100 Mg PO DAILY 1/2 tab po daily Pompey 5-325 Tablet (Acetaminophen/Hydrocodone Bitart) 1 Each Tablet 1-2 Tab PO Q4-6HRS Ferric Citrate 210 Mg Tablet 210 Mg PO TIDAC 2 tabs for breakfast and lunch, 3 tabs for dinner Carvedilol (Carvedilol) 3.125 Mg Tablet 25 Mg PO BIDWMEALS Furosemide 40 Mg Tablet 1 Tab PO BID Atorvastatin Calcium 20 Mg Tablet 1 Tab PO QHS Renagel (Sevelamer Hcl) 800 Mg Tablet 800 Mg PO TIDWMEALS Allergies Allergies: Coded Allergies: No Known Allergies (Verified Allergy, Unknown, 09/15/18) ROS General: YES: Fatigue, Appetite PSYCHOLOGICAL ROS: YES: Anxiety Eyes: Yes Decreased vision HEENT: YES: Heacaches ALLERGY AND IMMUNOLOGY: YES: Seasonal Allergies ENDOCRINE: YES: Malaise/lethargy, Skin Changes Respiratory: YES: Shortness of breath, SOB with excertion Cardiovascular: yes Chest Pain, yes Edema Gastrointestinal: Yes Constipation Genitourinary: YES Other (ANURIA) Musculoskeletal: Yes Muscular Weakness Neurological: Yes Weakness Skin: Yes Dry Skin Physical Exam General: Alert, Oriented X3, Cooperative, No acute distress HEENT: Atraumatic, PERRLA Lungs: Clear to auscultation Heart: Regular rate Abdomen: Normal bowel sounds, Soft, No tenderness Skin: No rashes Neuro: Normal speech, Cranial nerves 3-12 NL Psych/Mental Status: Mental status NL, Mood NL MUSCULOSKELETAL: No joint tenderness, No deformity Vitals VITALS Vital Signs Date Time Temp Pulse Resp B/P (MAP) Pulse Ox O2 Delivery O2 Flow Rate FiO2 07/06/19 13:09 100 219/105 (143) 95 Room Air 07/06/19 11:00 21 2.0 07/06/19 11:00 97.8 97.8 Labs Labs Laboratory Tests Test 07/05/19 20:52 07/05/19 22:45 07/06/19 05:10 07/06/19 08:09 Glucose (Fingerstick) 87 mg/dL (70-99) 99 mg/dL (70-99) Heparin Anti-Xa Act, Unfractionated 0.48 IU/mL (0.30-0.70) 0.43 IU/mL (0.30-0.70) Sodium Level 140 mmol/L (136-145) 141 mmol/L (136-145) Potassium Level 3.8 mmol/L (3.5-5.1) 4.0 mmol/L (3.5-5.1) Chloride Level 96 mmol/L (98-107) 98 mmol/L (98-107) Carbon Dioxide Level 29 mmol/L (21-32) 29 mmol/L (21-32) Anion Gap 15 (6-14) 14 (6-14) Blood Urea Nitrogen 62 mg/dL (8-26) 63 mg/dL (8-26) Creatinine 18.6 mg/dL (0.7-1.3) 18.9 mg/dL (0.7-1.3) Estimated GFR (Cockcroft-Gault) 3.2 3.1 Glucose Level 108 mg/dL (70-99) 97 mg/dL (70-99) Calcium Level 7.0 mg/dL (8.5-10.1) 6.9 mg/dL (8.5-10.1) Troponin I Quantitative 2.145 ng/mL (0.000-0.055) 1.974 ng/mL (0.000-0.055) White Blood Count 8.1 x10^3/uL (4.0-11.0) Red Blood Count 3.31 x10^6/uL (4.30-5.70) Hemoglobin 10.5 g/dL (13.0-17.5) Hematocrit 31.3 % (39.0-53.0) Mean Corpuscular Volume 94 fL (79-100) Mean Corpuscular Hemoglobin 32 pg (25-35) Mean Corpuscular Hemoglobin Concent 34 g/dL (31-37) Red Cell Distribution Width 14.7 % (11.5-14.5) Platelet Count 206 x10^3/uL (140-400) Neutrophils (%) (Auto) 74 % (31-73) Lymphocytes (%) (Auto) 15 % (24-48) Monocytes (%) (Auto) 8 % (0-9) Eosinophils (%) (Auto) 3 % (0-3) Basophils (%) (Auto) 1 % (0-3) Neutrophils # (Auto) 6.0 x10^3/uL (1.8-7.7) Lymphocytes # (Auto) 1.2 x10^3/uL (1.0-4.8) Monocytes # (Auto) 0.6 x10^3/uL (0.0-1.1) Eosinophils # (Auto) 0.2 x10^3/uL (0.0-0.7) Basophils # (Auto) 0.1 x10^3/uL (0.0-0.2) Triglycerides Level 191 mg/dL (0-150) Cholesterol Level 180 mg/dL (0-200) LDL Cholesterol, Calculated 113 mg/dL (0-100) VLDL Cholesterol, Calculated 38 mg/dL (0-40) Non-HDL Cholesterol Calculated 151 mg/dL (0-129) HDL Cholesterol 29 mg/dL (40-60) Cholesterol/HDL Ratio 6.2 Test 07/06/19 12:26 Glucose (Fingerstick) 116 mg/dL (70-99) Laboratory Tests Test 07/05/19 20:52 07/05/19 22:45 07/06/19 05:10 07/06/19 08:09 Glucose (Fingerstick) 87 mg/dL (70-99) 99 mg/dL (70-99) Heparin Anti-Xa Act, Unfractionated 0.48 IU/mL (0.30-0.70) 0.43 IU/mL (0.30-0.70) Sodium Level 140 mmol/L (136-145) 141 mmol/L (136-145) Potassium Level 3.8 mmol/L (3.5-5.1) 4.0 mmol/L (3.5-5.1) Chloride Level 96 mmol/L (98-107) 98 mmol/L (98-107) Carbon Dioxide Level 29 mmol/L (21-32) 29 mmol/L (21-32) Anion Gap 15 (6-14) 14 (6-14) Blood Urea Nitrogen 62 mg/dL (8-26) 63 mg/dL (8-26) Creatinine 18.6 mg/dL (0.7-1.3) 18.9 mg/dL (0.7-1.3) Estimated GFR (Cockcroft-Gault) 3.2 3.1 Glucose Level 108 mg/dL (70-99) 97 mg/dL (70-99) Calcium Level 7.0 mg/dL (8.5-10.1) 6.9 mg/dL (8.5-10.1) Troponin I Quantitative 2.145 ng/mL (0.000-0.055) 1.974 ng/mL (0.000-0.055) White Blood Count 8.1 x10^3/uL (4.0-11.0) Red Blood Count 3.31 x10^6/uL (4.30-5.70) Hemoglobin 10.5 g/dL (13.0-17.5) Hematocrit 31.3 % (39.0-53.0) Mean Corpuscular Volume 94 fL (79-100) Mean Corpuscular Hemoglobin 32 pg (25-35) Mean Corpuscular Hemoglobin Concent 34 g/dL (31-37) Red Cell Distribution Width 14.7 % (11.5-14.5) Platelet Count 206 x10^3/uL (140-400) Neutrophils (%) (Auto) 74 % (31-73) Lymphocytes (%) (Auto) 15 % (24-48) Monocytes (%) (Auto) 8 % (0-9) Eosinophils (%) (Auto) 3 % (0-3) Basophils (%) (Auto) 1 % (0-3) Neutrophils # (Auto) 6.0 x10^3/uL (1.8-7.7) Lymphocytes # (Auto) 1.2 x10^3/uL (1.0-4.8) Monocytes # (Auto) 0.6 x10^3/uL (0.0-1.1) Eosinophils # (Auto) 0.2 x10^3/uL (0.0-0.7) Basophils # (Auto) 0.1 x10^3/uL (0.0-0.2) Triglycerides Level 191 mg/dL (0-150) Cholesterol Level 180 mg/dL (0-200) LDL Cholesterol, Calculated 113 mg/dL (0-100) VLDL Cholesterol, Calculated 38 mg/dL (0-40) Non-HDL Cholesterol Calculated 151 mg/dL (0-129) HDL Cholesterol 29 mg/dL (40-60) Cholesterol/HDL Ratio 6.2 Test 07/06/19 12:26 Glucose (Fingerstick) 116 mg/dL (70-99) Assessment/Plan Assessment/Plan IMP ESRD CHEST PAIN ANEMIA HTN PLAN HD TODAY UF TO DW WILL USE ARM AVF FOR HD WILL HAVE SURGERY REMOVE HIS PD CATHETER CARDIOLOGY EVAL AND TX [place] WHEN NEEDED AND BP BETTER CONTROLLED WILL FOLLOW D/W 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
[2019-07-06] MEDS ORDERED: IV NORMAL SALINE 1000ML BAG 1,000 ML IV PRN ×2 (15:41)
[2019-07-06] MEDS ORDERED: diphenhydrAMINE 50 MG/ML VIAL IV PRN ×2 (15:45)
[2019-07-06] MEDS ORDERED: DIALYSIS PATIENT. MC PRN (15:45)
[2019-07-06] MEDS ORDERED: ACETAMINOPHEN 500 MG TABLET PO PRN (15:45)
--- NOTE | 2019-07-06 15:57 | RAD ---
MRI Brain without contrast History: Left side face numbness, generalized weakness Technique: Multiplanar, multisequential noncontrast MR imaging was performed of the brain. Comparison: None Findings: There is motion degradation. There is a tiny 6 mm focus of restricted diffusion along the right frontal cortical surface. No other restricted diffusion is identified. There is no midline shift or extra-axial fluid collection. There is small focus of encephalomalacia and gliosis as well as laminar process with cortical involvement of left parietal temporal lobes. There is scattered minimal T2 and FLAIR hyperintense signal of the supratentorial parenchyma bilaterally. There are some small foci of signal change of the left thalamus and basal ganglia not associated with significant gliosis, could be prominent perivascular spaces rather than old lacunar infarcts. There is no significant hemosiderin deposition of the brain parenchyma. Ventricular size is within normal limits. There is mild to moderate prominence of biparietal subarachnoid spaces. There is complete opacification of the right maxillary sinus, minimal left maxillary sinus mucosal thickening with adjacent likely mucus retention cyst 1.8 cm. There is patchy minimal ethmoid air cell mucosal thickening. There is mild fluid and thickening of the left mastoid air cells. There is preservation of the major arterial intracranial flow-voids at the skull base. There is somewhat disconjugate gaze. There is bilateral proptosis. Impression: 1. There is a small acute infarct along the right frontal cortical surface. 2. Minimal T2 and FLAIR hyperintense signal of the supratentorial parenchyma is nonspecific, may be due to chronic microvascular ischemic disease. Small foci of signal change of left thalamus and basal ganglia may be prominent perivascular spaces rather than old lacunar infarcts. There is old infarct with cortical involvement left temporal parietal lobes. 3. There is complete opacification of the right maxillary sinus, also left maxillary sinus mucosal thickening and mucous retention cyst. 4. There is involutional change greater of the parietal lobes. 5. There is bilateral proptosis, also slightly disconjugate gaze. Critical results were discussed with patient's nurse Howard at 07/06/2019 3:53 PM. Electronically signed by: Raúl Albright MD (07/06/2019 3:54 PM) [id number]
--- NOTE | 2019-07-06 17:05 | RAD ---
Carotid doppler ultrasound History: CVA Multiple grayscale, color, and duplex spectral analysis waveform sonographic images were acquired of the carotid, subclavian, and vertebral arteries. Comparison: None Findings: RIGHT: PSV cm/sec EDV cm/sec Common carotid artery 123 22 Maximal internal carotid artery 100 21 External carotid artery 122 Vertebral artery 87 ICA/CCA ratio 0.81 LEFT: PSV cm/sec EDV cm/sec Common carotid artery 131 31 Maximum internal carotid artery 86 22 External carotid artery 96 Vertebral artery 28 ICA/CCA ratio 0.65 Velocities used to determine stenosis are known to correlate with NASCET angiographic criteria. There is antegrade flow in the bilateral vertebral arteries. There is fvxw-ly-soafwetz plaque of the left carotid bulb and proximal internal and external carotid arteries, to lesser degree on the right. Impression: 1. There is no evidence of a hemodynamically significant stenosis. Electronically signed by: Raúl Albright MD (07/06/2019 5:02 PM) [id number]
[2019-07-06] MEDS ORDERED: ATORVASTATIN CALCIUM 20 MG TABLET PO SCH (21:00)
--- NOTE | 2019-07-06 21:00 | NUR ---
PT RETURN FROM DIALYSIS, RECEIVED REPORT FROM SUE. PMRN
[2019-07-06] MEDS: ATORVASTATIN CALCIUM 40 MG TABLET. PO SCH (21:05)
[2019-07-06] MEDS: ASPIRIN ENTERIC COATED 81 MG TABLET.DR. PO SCH (21:25)
[2019-07-07 03:00] VITALS: BP 161/77
[2019-07-07 07:00] VITALS: BP 153/70
[2019-07-07 07:10] LABS: HEMATOCRIT 32.1 % (39.0-53.0); HEMOGLOBIN 10.9 g/dL (13.0-17.5); RED BLOOD COUNT 3.38 x10^6/uL (4.30-5.70); RED CELL DISTRIBUTION WIDTH 14.7 % (11.5-14.5); WHITE BLOOD COUNT 7.8 x10^3/uL (4.0-11.0)
[2019-07-07 07:12] LABS: BASO # 0.1 x10^3/uL (0.0-0.2); BASO % 1 % (0-3); EOS # 0.2 x10^3/uL (0.0-0.7); EOS % 2 % (0-3); HEMATOCRIT 31.7 % (39.0-53.0); HEMOGLOBIN 10.7 g/dL (13.0-17.5); LYMPH # 0.9 x10^3/uL (1.0-4.8); LYMPH % 11 % (24-48); MEAN CORPUSCULAR HEMOGLOBIN 32 pg (25-35); MEAN CORPUSCULAR HGB CONC 34 g/dL (31-37); MEAN CORPUSCULAR VOLUME 95 fL (79-100); MONO # 0.7 x10^3/uL (0.0-1.1); MONO % 8 % (0-9); NEUT # 6.3 x10^3/uL (1.8-7.7); NEUT % 78 % (31-73); PLATELET COUNT 213 x10^3/uL (140-400); RED BLOOD COUNT 3.34 x10^6/uL (4.30-5.70); RED CELL DISTRIBUTION WIDTH 14.3 % (11.5-14.5); WHITE BLOOD COUNT 8.1 x10^3/uL (4.0-11.0)
[2019-07-07] MEDS: SEVELAMER CARBONATE 800 MG TABLET. PO SCH ×3 (08:00→17:30)
--- NOTE | 2019-07-07 10:28 | CARD ---
MR#: [id number] Date of Study: 07/07/2019 Ordering Physician: AMBAR GONZALEZ, Referring Physician: AMBAR GONZALEZ, Tech: Belkis Wise APPROVED REPORT EXAM: Two-dimensional and M-mode echocardiogram with Doppler and color Doppler. Other Information Quality : AverageHR: 64bpm INDICATION CVA/TIA Cardiac Disease: CAD Non STEMI Echo Enhancing Agent Indication: Rule Out Septal Defect Agent/Amount Used: Agitated Saline 10mL RISK FACTORS Hypertension Hyperlipidemia Diabetes 2D DIMENSIONS Left Atrium(2D)4.9 (1.6-4.0cm)IVSd1.8 (0.7-1.1cm) Aortic Root(2D)3.6 (2.0-3.7cm)LVDd6.1 (3.9-5.9cm) LVOT Diameter2.2 (1.8-2.4cm)PWd1.8 (0.7-1.1cm) LVDs5.5 (2.5-4.0cm)FS (%) 18.7 % SV87.8 mlLVEF(%)46.7 (>50%) Aortic Valve AoV Peak Diony.256.7cm/sAoV VTI49.0cm AO Peak GR.26.4mmHgLVOT Peak Diony.109.5cm/s LVOT VTI 24.78cmAO Mean GR.16mmHg MAYE (VMAX)1.11xg7XYH (VTI)1.90cm2 AI P 1/2 [id number] Mitral Valve MV E Oiccpxro555.9cm/sMV E Peak Gr.104mmHg MV DECEL [id number] A Jpqdwbxc628.7cm/s MV E Mean Gr.3mmHgMV [id number] E/A Ratio1.1MVA (PHT)3.36cm2 TDI E/Lateral E'20.4E/Medial E'17.3 Pulmonary Valve PV Peak Spjwkrxt921.7cm/sPV Peak Grad.4mmHg Pulmonary Vein S1 Ftlycjza87.1cm/sD2 Wmugnxuo11.8cm/s PVa [id number] LEFT VENTRICLE The Left Ventricle is borderline dilated. There is mild to moderate concentric left ventricular hyper trophy. LV systolic function is low normal. EF 50% Septal motion consistent with conduction abnormali ty. Transmitral Doppler flow pattern is Grade II-pseudonormal filling dynamics. RIGHT VENTRICLE The right ventricle is normal size. There is normal right ventricular wall thickness. The right ventr icular systolic function is normal. ATRIA The left atrium size is normal. The right atrium size is normal. The interatrial septum is intact wit h no evidence for an atrial septal defect or patent foramen ovale as noted on 2-D or Doppler imaging. Bubble study appears negative. AORTIC VALVE The aortic valve is calcified but opens well. Doppler and Color Flow revealed mild to moderate aortic regurgitation. Calculated aortic valve area is 1.4 cm2 with maximum pressure gradient of 31 mmHg and mean pressure gradient of 18 mmHg. MITRAL VALVE The mitral valve is normal in structure and function. There is no evidence of mitral valve prolapse. There is no mitral valve stenosis. Doppler and Color-flow revealed mild to moderate mitral regurgitat ion. TRICUSPID VALVE The tricuspid valve is not well visualized. Doppler and Color Flow revealed no tricuspid valve regurg itation noted. There is no tricuspid valve stenosis. PULMONIC VALVE The pulmonic valve is not well visualized. Doppler and Color Flow revealed no pulmonic valvular regur gitation. GREAT VESSELS The aortic root is normal in size. The IVC is normal in size and collapses >50% with inspiration. PERICARDIAL EFFUSION There is no evidence of significant pericardial effusion. Critical Notification Critical Value: No <Conclusion> LV systolic function is low normal. EF 50% There is mild to moderate concentric left ventricular hypertrophy. Calculated aortic valve area is 1.4 cm2 with maximum pressure gradient of 31 mmHg and mean pressure g radient of 18 mmHg. Doppler and Color Flow revealed mild to moderate aortic regurgitation. Signed by : Jose A Dove, Electronically Approved : 07/07/2019 10:27:42
[2019-07-07 11:00] VITALS: BP 150/70
[2019-07-07] MEDS: EZETIMIBE 10 MG TABLET. PO SCH (11:25)
[2019-07-07] MEDS: SPIRONOLACTONE 25 MG TABLET PO SCH (11:25)
[2019-07-07] MEDS: CARVEDILOL 12.5 MG TABLET. PO SCH ×2 (11:25→17:31)
[2019-07-07] MEDS: ALLOPURINOL 100 MG TABLET. PO SCH (11:26)
[2019-07-07] MEDS: CALCITRIOL 0.25 MCG CAPSULE. PO SCH (11:26)
[2019-07-07] MEDS: ASPIRIN ENTERIC COATED 81 MG TABLET.DR. PO SCH (11:26)
--- NOTE | 2019-07-07 11:55 | PDOC ---
Renal-Progress Notes Subjective Notes Notes FEELS WELL History of Present Illness Hx of present illness STABLE Vitals Vitals Vital Signs Date Time Temp Pulse Resp B/P (MAP) Pulse Ox O2 Delivery O2 Flow Rate FiO2 07/07/19 11:25 81 150/70 07/07/19 07:00 98.1 20 95 Room Air 98.1 07/07/19 03:00 2.0 Weight Weight [ ] I.O. Intake and Output Intake and Output 07/07/19 07:00 Intake Total 780 ml Output Total 0 ml Balance 780 ml Intake Oral 780 ml Output Urine Total 0 ml Labs Labs Laboratory Tests Test 07/06/19 12:26 07/06/19 21:09 07/07/19 06:33 Glucose (Fingerstick) 116 mg/dL (70-99) 86 mg/dL (70-99) White Blood Count 7.8 x10^3/uL (4.0-11.0) Red Blood Count 3.38 x10^6/uL (4.30-5.70) Hemoglobin 10.9 g/dL (13.0-17.5) Hematocrit 32.1 % (39.0-53.0) Mean Corpuscular Volume 95 fL (79-100) Mean Corpuscular Hemoglobin 32 pg (25-35) Mean Corpuscular Hemoglobin Concent 34 g/dL (31-37) Red Cell Distribution Width 14.7 % (11.5-14.5) Platelet Count 214 x10^3/uL (140-400) Neutrophils (%) (Auto) 78 % (31-73) Lymphocytes (%) (Auto) 11 % (24-48) Monocytes (%) (Auto) 8 % (0-9) Eosinophils (%) (Auto) 2 % (0-3) Basophils (%) (Auto) 1 % (0-3) Neutrophils # (Auto) 6.3 x10^3/uL (1.8-7.7) Lymphocytes # (Auto) 0.9 x10^3/uL (1.0-4.8) Monocytes # (Auto) 0.7 x10^3/uL (0.0-1.1) Eosinophils # (Auto) 0.2 x10^3/uL (0.0-0.7) Basophils # (Auto) 0.1 x10^3/uL (0.0-0.2) Review of Systems Constitutional: yes: alert, oriented Ears/Nose/Throat: Yes: no symptom reported Eyes: Yes: no symptom reported Pulmonary: Yes no symptom reported Cardiovascular: Yes no symptom reported Gastrointestional: Yes: no symptom reported Genitourinary: Yes: no symptom reported Musculoskeletal: Yes: no symptom reported Skin: Yes no symptom reported Psychiatric/Neurological: Yes: no symptom reported Endocrine: Yes: no symptom reported Physical Exam General Appearance: no apparent distress Skin: warm Respiratory: bilateral CTA Heart: S1S2, RRR Abdomen: soft, bowel sounds present Genitourinary: bladder flat Extremities: pulses present Neurology: alert, oriented Musculoskeletal: Osteoarthritis Assessment Assessment IMP ESRD CHEST PAIN ANEMIA DM II HTN PLAN CONT HD MWF VIA LEFT ARM BB AVF PD CATHETER REMOVAL PENDING STABLE FROM RENAL STANDPOINT MAME HERNANDEZ MD Jul 07, 2019 11:55
--- NOTE | 2019-07-07 12:34 | PDOC ---
PROGRESS NOTES Chief Complaint Chief Complaint NSTEMI ESRD, has left arm fistula for HD, currently does PD, is full of fluid and needs drained currently, he would like to change back to HD TIA, facial weakness and trouble speaking resolved, prior stroke x2, he has rehabbed well, is currently disabled but has improved markedly htn, hyperlidpids obese, BMI 32 History of Present Illness History of Present Illness cardiac cath had mild disease. cont current will remove PD cath, gen surg consult, he feels a little better, may DC after surg Vitals Vitals Vital Signs Date Time Temp Pulse Resp B/P (MAP) Pulse Ox O2 Delivery O2 Flow Rate FiO2 07/07/19 11:25 81 150/70 07/07/19 11:00 98.2 16 98 Room Air 98.2 07/07/19 03:00 2.0 Physical Exam General: Alert, Oriented X3, Cooperative, No acute distress Heart: Regular rate Lungs: Clear, Other Abdomen: Normal bowel sounds, Soft, No tenderness Extremities: No cyanosis, Other (2+ bilateral LE pitting edema) Skin: No rashes Labs LABS Laboratory Tests Test 07/06/19 21:09 07/07/19 06:33 Glucose (Fingerstick) 86 mg/dL (70-99) White Blood Count 7.8 x10^3/uL (4.0-11.0) Red Blood Count 3.38 x10^6/uL (4.30-5.70) Hemoglobin 10.9 g/dL (13.0-17.5) Hematocrit 32.1 % (39.0-53.0) Mean Corpuscular Volume 95 fL (79-100) Mean Corpuscular Hemoglobin 32 pg (25-35) Mean Corpuscular Hemoglobin Concent 34 g/dL (31-37) Red Cell Distribution Width 14.7 % (11.5-14.5) Platelet Count 214 x10^3/uL (140-400) Neutrophils (%) (Auto) 78 % (31-73) Lymphocytes (%) (Auto) 11 % (24-48) Monocytes (%) (Auto) 8 % (0-9) Eosinophils (%) (Auto) 2 % (0-3) Basophils (%) (Auto) 1 % (0-3) Neutrophils # (Auto) 6.3 x10^3/uL (1.8-7.7) Lymphocytes # (Auto) 0.9 x10^3/uL (1.0-4.8) Monocytes # (Auto) 0.7 x10^3/uL (0.0-1.1) Eosinophils # (Auto) 0.2 x10^3/uL (0.0-0.7) Basophils # (Auto) 0.1 x10^3/uL (0.0-0.2) Review of Systems Review of Systems abd fullness, weakness Comment Review of Relevant I have reviewed the following items katia (where applicable) has been applied. Labs Laboratory Tests Test 07/05/19 20:52 07/05/19 22:45 07/06/19 05:10 07/06/19 08:09 Glucose (Fingerstick) 87 mg/dL (70-99) 99 mg/dL (70-99) Heparin Anti-Xa Act, Unfractionated 0.48 IU/mL (0.30-0.70) 0.43 IU/mL (0.30-0.70) Sodium Level 140 mmol/L (136-145) 141 mmol/L (136-145) Potassium Level 3.8 mmol/L (3.5-5.1) 4.0 mmol/L (3.5-5.1) Chloride Level 96 mmol/L (98-107) 98 mmol/L (98-107) Carbon Dioxide Level 29 mmol/L (21-32) 29 mmol/L (21-32) Anion Gap 15 (6-14) 14 (6-14) Blood Urea Nitrogen 62 mg/dL (8-26) 63 mg/dL (8-26) Creatinine 18.6 mg/dL (0.7-1.3) 18.9 mg/dL (0.7-1.3) Estimated GFR (Cockcroft-Gault) 3.2 3.1 Glucose Level 108 mg/dL (70-99) 97 mg/dL (70-99) Calcium Level 7.0 mg/dL (8.5-10.1) 6.9 mg/dL (8.5-10.1) Troponin I Quantitative 2.145 ng/mL (0.000-0.055) 1.974 ng/mL (0.000-0.055) White Blood Count 8.1 x10^3/uL (4.0-11.0) Red Blood Count 3.31 x10^6/uL (4.30-5.70) Hemoglobin 10.5 g/dL (13.0-17.5) Hematocrit 31.3 % (39.0-53.0) Mean Corpuscular Volume 94 fL (79-100) Mean Corpuscular Hemoglobin 32 pg (25-35) Mean Corpuscular Hemoglobin Concent 34 g/dL (31-37) Red Cell Distribution Width 14.7 % (11.5-14.5) Platelet Count 206 x10^3/uL (140-400) Neutrophils (%) (Auto) 74 % (31-73) Lymphocytes (%) (Auto) 15 % (24-48) Monocytes (%) (Auto) 8 % (0-9) Eosinophils (%) (Auto) 3 % (0-3) Basophils (%) (Auto) 1 % (0-3) Neutrophils # (Auto) 6.0 x10^3/uL (1.8-7.7) Lymphocytes # (Auto) 1.2 x10^3/uL (1.0-4.8) Monocytes # (Auto) 0.6 x10^3/uL (0.0-1.1) Eosinophils # (Auto) 0.2 x10^3/uL (0.0-0.7) Basophils # (Auto) 0.1 x10^3/uL (0.0-0.2) Triglycerides Level 191 mg/dL (0-150) Cholesterol Level 180 mg/dL (0-200) LDL Cholesterol, Calculated 113 mg/dL (0-100) VLDL Cholesterol, Calculated 38 mg/dL (0-40) Non-HDL Cholesterol Calculated 151 mg/dL (0-129) HDL Cholesterol 29 mg/dL (40-60) Cholesterol/HDL Ratio 6.2 Test 07/06/19 12:26 07/06/19 21:09 07/07/19 06:33 Glucose (Fingerstick) 116 mg/dL (70-99) 86 mg/dL (70-99) White Blood Count 7.8 x10^3/uL (4.0-11.0) Red Blood Count 3.38 x10^6/uL (4.30-5.70) Hemoglobin 10.9 g/dL (13.0-17.5) Hematocrit 32.1 % (39.0-53.0) Mean Corpuscular Volume 95 fL (79-100) Mean Corpuscular Hemoglobin 32 pg (25-35) Mean Corpuscular Hemoglobin Concent 34 g/dL (31-37) Red Cell Distribution Width 14.7 % (11.5-14.5) Platelet Count 214 x10^3/uL (140-400) Neutrophils (%) (Auto) 78 % (31-73) Lymphocytes (%) (Auto) 11 % (24-48) Monocytes (%) (Auto) 8 % (0-9) Eosinophils (%) (Auto) 2 % (0-3) Basophils (%) (Auto) 1 % (0-3) Neutrophils # (Auto) 6.3 x10^3/uL (1.8-7.7) Lymphocytes # (Auto) 0.9 x10^3/uL (1.0-4.8) Monocytes # (Auto) 0.7 x10^3/uL (0.0-1.1) Eosinophils # (Auto) 0.2 x10^3/uL (0.0-0.7) Basophils # (Auto) 0.1 x10^3/uL (0.0-0.2) Laboratory Tests Test 07/06/19 21:09 07/07/19 06:33 Glucose (Fingerstick) 86 mg/dL (70-99) White Blood Count 7.8 x10^3/uL (4.0-11.0) Red Blood Count 3.38 x10^6/uL (4.30-5.70) Hemoglobin 10.9 g/dL (13.0-17.5) Hematocrit 32.1 % (39.0-53.0) Mean Corpuscular Volume 95 fL (79-100) Mean Corpuscular Hemoglobin 32 pg (25-35) Mean Corpuscular Hemoglobin Concent 34 g/dL (31-37) Red Cell Distribution Width 14.7 % (11.5-14.5) Platelet Count 214 x10^3/uL (140-400) Neutrophils (%) (Auto) 78 % (31-73) Lymphocytes (%) (Auto) 11 % (24-48) Monocytes (%) (Auto) 8 % (0-9) Eosinophils (%) (Auto) 2 % (0-3) Basophils (%) (Auto) 1 % (0-3) Neutrophils # (Auto) 6.3 x10^3/uL (1.8-7.7) Lymphocytes # (Auto) 0.9 x10^3/uL (1.0-4.8) Monocytes # (Auto) 0.7 x10^3/uL (0.0-1.1) Eosinophils # (Auto) 0.2 x10^3/uL (0.0-0.7) Basophils # (Auto) 0.1 x10^3/uL (0.0-0.2) Medications Current Medications Atorvastatin Calcium (Lipitor) 20 mg QHS PO Last administered on 07/05/19at 21:27; Start 07/05/19 at 21:00; Stop 07/06/19 at 16:12; Status DC Hydralazine HCl (Apresoline) 50 mg TID PO Last administered on 07/07/19at 11:25; Start 07/05/19 at 21:00 Heparin Sodium/ Dextrose 250 ml @ 0 mls/hr CONT PRN IV PER PROTOCOL Last administered on 07/06/19at 07:22; Start 07/06/19 at 00:15 Heparin Sodium (Porcine) (Heparin Sodium) 3,550 unit PRN Q6HRS PRN IV FOR UFH LEVEL LESS THAN 0.2; Start 07/06/19 at 00:15 Allopurinol (Zyloprim) 100 mg DAILY PO Last administered on 07/07/19 11:26; Start 07/06/19 at 09:00 Atorvastatin Calcium (Lipitor) 20 mg QHS PO ; Start 07/06/19 at 21:00; Status Cancel Calcitriol (Rocaltrol) 0.25 mcg DAILY PO Last administered on 07/07/19 11:26; Start 07/06/19 at 09:00 Carvedilol (Coreg) 25 mg BIDWMEALS PO Last administered on 07/07/19 11:25; Start 07/06/19 at 09:30 EZETIMIBE (Zetia) 10 mg DAILY PO Last administered on 07/07/19 11:25; Start 07/06/19 at 09:00 Hydralazine HCl (Apresoline) 50 mg TID PO ; Start 07/06/19 at 09:00; Stop 07/06/19 at 13:52; Status DC Acetaminophen/ Hydrocodone Bitart (Lortab 5/325) 1 tab PRN Q4HRS PRN PO pain; Start 07/06/19 at 09:00 Spironolactone (Aldactone) 25 mg DAILY PO Last administered on 07/07/19at 11:25; Start 07/06/19 at 09:00 Sevelamer Carbonate (Renvela) 800 mg TIDWMEALS PO Last administered on 07/07/19at 11:26; Start 07/06/19 at 12:00 Amlodipine Besylate (Norvasc) 10 mg 1X ONCE PO Last administered on 07/06/19at 09:46; Start 07/06/19 at 09:00; Stop 07/06/19 at 09:34; Status DC Amlodipine Besylate (Norvasc) 5 mg STK-MED ONCE .ROUTE ; Start 07/06/19 at 09 :35; Stop 07/06/19 at 09:35; Status DC Fentanyl Citrate (Fentanyl 2ml Vial) 100 mcg STK-MED ONCE .ROUTE ; Start 07/06/19 at 09:46; Stop 07/06/19 at 09:46; Status DC Midazolam HCl (Versed) 5 mg STK-MED ONCE .ROUTE ; Start 07/06/19 at 09:46; Stop 07/06/19 at 09:46; Status DC Verapamil HCl (Verapamil) 5 mg STK-MED ONCE .ROUTE ; Start 07/06/19 at 09:46; Stop 07/06/19 at 09:46; Status DC Lidocaine HCl (Lidocaine 1% 20ml Vial) 20 ml STK-MED ONCE .ROUTE ; Start 07/06/19 at 09:46; Stop 07/06/19 at 09:47; Status DC Heparin Sodium/ Sodium Chloride 1,000 ml @ As Directed STK-MED ONCE .ROUTE ; Start 07/06/19 at 09:46; Stop 07/06/19 at 09:47; Status DC Nitroglycerin (Nitroglycerin) 200 mcg STK-MED ONCE .ROUTE ; Start 07/06/19 at 09:46; Stop 07/06/19 at 09:47; Status DC Heparin Sodium (Porcine) (Heparin Sodium) 10,000 unit STK-MED ONCE .ROUTE ; Start 07/06/19 at 09:48; Stop 07/06/19 at 09:48; Status DC Nitroglycerin (Nitroglycerin) 200 mcg 1X ONCE IART Last administered on 07/06/19at 10:51; Start 07/06/19 at 10:45; Stop 07/06/19 at 10:51; Status DC Verapamil HCl (Verapamil) 2.5 mg 1X ONCE IART Last administered on 07/06/19at 10:57; Start 07/06/19 at 10:45; Stop 07/06/19 at 10:51; Status DC Heparin Sodium (Porcine) (Heparin Sodium) 2,500 unit 1X ONCE IART Last administered on 07/06/19at 10:58; Start 07/06/19 at 10:45; Stop 07/06/19 at 10:51; Status DC Heparin Sodium/ Sodium Chloride (HEPARIN for ARTERIAL LINE FLUSH) 1,000 unit 1X ONCE IART Last administered on 07/06/19at 10:50; Start 07/06/19 at 10:45; Stop 07/06/19 at 10:51; Status DC Heparin Sodium/ Sodium Chloride (HEPARIN for ARTERIAL LINE FLUSH) 1,000 unit 1X ONCE IART Last administered on 07/06/19at 10:50; Start 07/06/19 at 10:45; Stop 07/06/19 at 10:51; Status DC Midazolam HCl (Versed) 5 mg 1X ONCE IV Last administered on 07/06/19at 10:56; Start 07/06/19 at 10:45; Stop 07/06/19 at 10:51; Status DC Fentanyl Citrate (Fentanyl 2ml Vial) 100 mcg 1X ONCE IV Last administered on 07/06/19at 10:57; Start 07/06/19 at 10:45; Stop 07/06/19 at 10:51; Status DC Iodixanol (Visipaque 320) 100 ml 1X ONCE IART Last administered on 07/06/19at 10:55; Start 07/06/19 at 10:45; Stop 07/06/19 at 10:51; Status DC Lidocaine HCl (Lidocaine 1% 20ml Vial) 20 ml 1X ONCE INJ Last administered on 07/06/19at 10:56; Start 07/06/19 at 10:45; Stop 07/06/19 at 10:51; Status DC Info (CONTRAST GIVEN -- Rx MONITORING) 1 each PRN DAILY PRN MC SEE COMMENTS; S tart 07/06/19 at 11:00; Stop 07/08/19 at 10:59 Sodium Chloride (Normal Saline Flush) 3 ml QSHIFT PRN IV AFTER MEDS AND BLOOD DRAWS; Start 07/06/19 at 11:00 Sodium Chloride 1,000 ml @ 60 mls/hr [id number] IV ; Start 07/06/19 at 10:54; Stop 07/06/19 at 14:53; Status DC Nitroglycerin (Nitrostat) 0.4 mg PRN Q5MIN PRN SL CHEST PAIN; Start 07/06/19 at 11:00 Sodium Chloride 1,000 ml @ 1,000 mls/hr Q1H PRN IV hypotension; Start 07/06/19 at 15:41; Stop 07/06/19 at 21:40; Status DC Acetaminophen (Tylenol) 500 mg 1X PRN PRN PO MILD PAIN / TEMP; Start 07/06/19 at 15:45; Stop 07/07/19 at 15:44 Diphenhydramine HCl (Benadryl) 25 mg 1X PRN PRN IV ITCHING; Start 07/06/19 at 15:45; Stop 07/07/19 at 15:44 Diphenhydramine HCl (Benadryl) 25 mg 1X PRN PRN IV ITCHING; Start 07/06/19 at 15:45; Stop 07/07/19 at 15:44 Sodium Chloride 1,000 ml @ 400 mls/hr Q2H30M PRN IV PATENCY; Start 07/06/19 at 15:41; Stop 07/07/19 at 03:40; Status DC Info (PHARMACY MONITORING -- do not chart) 1 each PRN DAILY PRN MC SEE COMMENTS; Start 07/06/19 at 15:45 Atorvastatin Calcium (Lipitor) 40 mg QHS PO Last administered on 07/06/19at 21:05; Start 07/06/19 at 21:00 Aspirin (Ecotrin) 81 mg [id number] PO Last administered on 07/07/19at 11:26; Start 07/06/19 at 17:00 Active Scripts Active Meclizine Hcl 25 Mg Tablet 1 Tab PO PRN TID PRN Reported Velphoro (Sucroferric Oxyhydroxide) 500 Mg Tab.chew 500 Mg PO TIDWMEALS Calcitriol 0.25 Mcg Capsule 0.25 Mcg PO DAILY Hydralazine Hcl 50 Mg Tablet 50 Mg PO TID Zetia (Ezetimibe) 10 Mg Tablet 10 Mg PO DAILY Spironolactone 25 Mg Tablet 25 Mg PO DAILY Allopurinol 100 Mg Tablet 100 Mg PO DAILY 1/2 tab po daily Wray 5-325 Tablet (Acetaminophen/Hydrocodone Bitart) 1 Each Tablet 1-2 Tab PO Q4-6HRS Ferric Citrate 210 Mg Tablet 210 Mg PO TIDAC 2 tabs for breakfast and lunch, 3 tabs for dinner Carvedilol (Carvedilol) 3.125 Mg Tablet 25 Mg PO BIDWMEALS Furosemide 40 Mg Tablet 1 Tab PO BID Atorvastatin Calcium 20 Mg Tablet 1 Tab PO QHS Renagel (Sevelamer Hcl) 800 Mg Tablet 800 Mg PO TIDWMEALS Vitals/I & O Vital Sign - Last 24 Hours 07/06/19 07/06/19 07/06/19 07/06/19 12:45 13:09 15:00 15:57 Temp 98.1 98.1 Pulse 84 100 88 88 Resp 18 B/P (MAP) 200/86 (124) 219/105 (143) 204/100 (134) 204/100 Pulse Ox 96 95 97 O2 Delivery Room Air Room Air Room Air 07/06/19 07/06/19 07/06/19 07/06/19 20:59 21:05 21:06 23:00 Temp 98.5 98.4 98.5 98.4 Pulse 112 112 94 Resp 22 B/P (MAP) 189/77 (114) 189/77 165/74 (104) Pulse Ox 97 97 O2 Delivery Room Air Room Air Room Air 07/07/19 07/07/19 07/07/19 07/07/19 03:00 07:00 08:00 11:00 Temp 98.8 98.1 98.2 98.8 98.1 98.2 Pulse 81 81 63 Resp 16 20 16 B/P (MAP) 161/77 (105) 153/70 (97) 150/70 (96) Pulse Ox 98 95 98 O2 Delivery Nasal Cannula Room Air Room Air Room Air O2 Flow Rate 2.0 07/07/19 07/07/19 11:25 11:25 Pulse 81 81 B/P (MAP) 150/70 150/70 Intake and Output 07/06/19 07/06/19 07/07/19 15:00 23:00 07:00 Intake Total 180 ml 600 ml 0 ml Output Total 0 ml 0 ml 0 ml Balance 180 ml 600 ml 0 ml DALLAS JUARES MD Jul 07, 2019 12:34
--- NOTE | 2019-07-07 12:51 | PDOC2 ---
TATINATALIA Nataliia LEGAL COORDINATOR 07/07/19 1250: CONSULT Date of Consult Date of Consult DATE: 07/07/19 TIME: 12:47 Reason for Consult Reason for Consult: pd cath removal Referring Physician Referring Physician: Dr Haney Identification/Chief Complaint Chief Complaint chest pain Source Source: Chart review, Patient History of Present Illness Reason for Visit: Admitted with cardiac issues/STEMI, underwent cardiac cath. Renal failure, requiring dialysis-PD cath x 6 months, -to much to handle and plans of switching to HD--needs PD cath out, no hx of infection Past Medical History Cardiovascular: CAD, CHF, HTN, Hyperlipidemia, Other (ICM) Pulmonary: Other (ALISSA) CENTRAL NERVOUS SYSTEM: CVA GI: Peptic Ulcer disease Psych: Anxiety Musculoskeletal: Osteoarthritis Rheumatologic: Gout Renal/: Chronic renal failure (ESRD with PD) Endocrine: Hyperparathyroidism, Other (metabolic syndrome) Dermatology: No pertinent hx Past Surgical History Past Surgical History: Other (HX OF PD CATHETER AND LEFT ARM AVF) Family History Family History: Heart Disease, Hypertension Social History No ALCOHOL: none Drugs: None Lives: with Family Current Medications Current Medications Current Medications Atorvastatin Calcium (Lipitor) 20 mg QHS PO Last administered on 07/05/19at 2 1:27; Start 07/05/19 at 21:00; Stop 07/06/19 at 16:12; Status DC Hydralazine HCl (Apresoline) 50 mg TID PO Last administered on 07/07/19at 11:25; Start 07/05/19 at 21:00 Heparin Sodium/ Dextrose 250 ml @ 0 mls/hr CONT PRN IV PER PROTOCOL Last administered on 07/06/19at 07:22; Start 07/06/19 at 00:15 Heparin Sodium (Porcine) (Heparin Sodium) 3,550 unit PRN Q6HRS PRN IV FOR UFH LEVEL LESS THAN 0.2; Start 07/06/19 at 00:15 Allopurinol (Zyloprim) 100 mg DAILY PO Last administered on 07/07/19at 11:26; Start 07/06/19 at 09:00 Atorvastatin Calcium (Lipitor) 20 mg QHS PO ; Start 07/06/19 at 21:00; Status Cancel Calcitriol (Rocaltrol) 0.25 mcg DAILY PO Last administered on 07/07/19at 11:26; Start 07/06/19 at 09:00 Carvedilol (Coreg) 25 mg BIDWMEALS PO Last administered on 07/07/19at 11:25; Start 07/06/19 at 09:30 EZETIMIBE (Zetia) 10 mg DAILY PO Last administered on 07/07/19at 11:25; Start 07/06/19 at 09:00 Hydralazine HCl (Apresoline) 50 mg TID PO ; Start 07/06/19 at 09:00; Stop 07/06/19 at 13:52; Status DC Acetaminophen/ Hydrocodone Bitart (Lortab 5/325) 1 tab PRN Q4HRS PRN PO pain; Start 07/06/19 at 09:00 Spironolactone (Aldactone) 25 mg DAILY PO Last administered on 07/07/19at 11:25; Start 07/06/19 at 09:00 Sevelamer Carbonate (Renvela) 800 mg TIDWMEALS PO Last administered on 07/07/19at 11:26; Start 07/06/19 at 12:00 Amlodipine Besylate (Norvasc) 10 mg 1X ONCE PO Last administered on 07/06/19at 09:46; Start 07/06/19 at 09:00; Stop 07/06/19 at 09:34; Status DC Amlodipine Besylate (Norvasc) 5 mg STK-MED ONCE .ROUTE ; Start 07/06/19 at 09:35; Stop 07/06/19 at 09:35; Status DC Fentanyl Citrate (Fentanyl 2ml Vial) 100 mcg STK-MED ONCE .ROUTE ; Start 07/06/19 at 09:46; Stop 07/06/19 at 09:46; Status DC Midazolam HCl (Versed) 5 mg STK-MED ONCE .ROUTE ; Start 07/06/19 at 09:46; Stop 07/06/19 at 09:46; Status DC Verapamil HCl (Verapamil) 5 mg STK-MED ONCE .ROUTE ; Start 07/06/19 at 09:46; Stop 07/06/19 at 09:46; Status DC Lidocaine HCl (Lidocaine 1% 20ml Vial) 20 ml STK-MED ONCE .ROUTE ; Start 07/06/19 at 09:46; Stop 07/06/19 at 09:47; Status DC Heparin Sodium/ Sodium Chloride 1,000 ml @ As Directed STK-MED ONCE .ROUTE ; Start 07/06/19 at 09:46; Stop 07/06/19 at 09:47; Status DC Nitroglycerin (Nitroglycerin) 200 mcg STK-MED ONCE .ROUTE ; Start 07/06/19 at 09:46; Stop 07/06/19 at 09:47; Status DC Heparin Sodium (Porcine) (Heparin Sodium) 10,000 unit STK-MED ONCE .ROUTE ; Start 07/06/19 at 09:48; Stop 07/06/19 at 09:48; Status DC Nitroglycerin (Nitroglycerin) 200 mcg 1X ONCE IART Last administered on 07/06/19at 10:51; Start 07/06/19 at 10:45; Stop 07/06/19 at 10:51; Status DC Verapamil HCl (Verapamil) 2.5 mg 1X ONCE IART Last administered on 07/06/19at 10:57; Start 07/06/19 at 10:45; Stop 07/06/19 at 10:51; Status DC Heparin Sodium (Porcine) (Heparin Sodium) 2,500 unit 1X ONCE IART Last administered on 07/06/19at 10:58; Start 07/06/19 at 10:45; Stop 07/06/19 at 10:51; Status DC Heparin Sodium/ Sodium Chloride (HEPARIN for ARTERIAL LINE FLUSH) 1,000 unit 1X ONCE IART Last administered on 07/06/19at 10:50; Start 07/06/19 at 10:45; Stop 07/06/19 at 10:51; Status DC Heparin Sodium/ Sodium Chloride (HEPARIN for ARTERIAL LINE FLUSH) 1,000 unit 1X ONCE IART Last administered on 07/06/19at 10:50; Start 07/06/19 at 10:45; Stop 07/06/19 at 10:51; Status DC Midazolam HCl (Versed) 5 mg 1X ONCE IV Last administered on 07/06/19at 10:56; Start 07/06/19 at 10:45; Stop 07/06/19 at 10:51; Status DC Fentanyl Citrate (Fentanyl 2ml Vial) 100 mcg 1X ONCE IV Last administered on 07/06/19at 10:57; Start 07/06/19 at 10:45; Stop 07/06/19 at 10:51; Status DC Iodixanol (Visipaque 320) 100 ml 1X ONCE IART Last administered on 07/06/19at 10:55; Start 07/06/19 at 10:45; Stop 07/06/19 at 10:51; Status DC Lidocaine HCl (Lidocaine 1% 20ml Vial) 20 ml 1X ONCE INJ Last administered on 07/06/19at 10:56; Start 07/06/19 at 10:45; Stop 07/06/19 at 10:51; Status DC Info (CONTRAST GIVEN -- Rx MONITORING) 1 each PRN DAILY PRN MC SEE COMMENTS; Start 07/06/19 at 11:00; Stop 07/08/19 at 10:59 Sodium Chloride (Normal Saline Flush) 3 ml QSHIFT PRN IV AFTER MEDS AND BLOOD DRAWS; Start 07/06/19 at 11:00 Sodium Chloride 1,000 ml @ 60 mls/hr [id number] IV ; Start 07/06/19 at 10:54; Stop 07/06/19 at 14:53; Status DC Nitroglycerin (Nitrostat) 0.4 mg PRN Q5MIN PRN SL CHEST PAIN; Start 07/06/19 at 11:00 Sodium Chloride 1,000 ml @ 1,000 mls/hr Q1H PRN IV hypotension; Start 07/06/19 at 15:41; Stop 07/06/19 at 21:40; Status DC Acetaminophen (Tylenol) 500 mg 1X PRN PRN PO MILD PAIN / TEMP; Start 07/06/19 at 15:45; Stop 07/07/19 at 15:44 Diphenhydramine HCl (Benadryl) 25 mg 1X PRN PRN IV ITCHING; Start 07/06/19 at 15:45; Stop 07/07/19 at 15:44 Diphenhydramine HCl (Benadryl) 25 mg 1X PRN PRN IV ITCHING; Start 07/06/19 at 15:45; Stop 07/07/19 at 15:44 Sodium Chloride 1,000 ml @ 400 mls/hr Q2H30M PRN IV PATENCY; Start 07/06/19 at 15:41; Stop 07/07/19 at 03:40; Status DC Info (PHARMACY MONITORING -- do not chart) 1 each PRN DAILY PRN MC SEE COMMENTS; Start 07/06/19 at 15:45 Atorvastatin Calcium (Lipitor) 40 mg QHS PO Last administered on 07/06/19at 21:05; Start 07/06/19 at 21:00 Aspirin (Ecotrin) 81 mg [id number] PO Last administered on 07/07/19at 11:26; Start 07/06/19 at 17:00 Active Scripts Active Meclizine Hcl 25 Mg Tablet 1 Tab PO PRN TID PRN Reported Velphoro (Sucroferric Oxyhydroxide) 500 Mg Tab.chew 500 Mg PO TIDWMEALS Calcitriol 0.25 Mcg Capsule 0.25 Mcg PO DAILY Hydralazine Hcl 50 Mg Tablet 50 Mg PO TID Zetia (Ezetimibe) 10 Mg Tablet 10 Mg PO DAILY Spironolactone 25 Mg Tablet 25 Mg PO DAILY Allopurinol 100 Mg Tablet 100 Mg PO DAILY 1/2 tab po daily [place] 5-325 Tablet (Acetaminophen/Hydrocodone Bitart) 1 Each Tablet 1-2 Tab PO Q4-6HRS Ferric Citrate 210 Mg Tablet 210 Mg PO TIDAC 2 tabs for breakfast and lunch, 3 tabs for dinner Carvedilol (Carvedilol) 3.125 Mg Tablet 25 Mg PO BIDWMEALS Furosemide 40 Mg Tablet 1 Tab PO BID Atorvastatin Calcium 20 Mg Tablet 1 Tab PO QHS Renagel (Sevelamer Hcl) 800 Mg Tablet 800 Mg PO TIDWMEALS Allergies Allergies: Coded Allergies: No Known Allergies (Verified Allergy, Unknown, 09/15/18) ROS General: No: Chills, Other (fevers ) PSYCHOLOGICAL ROS: No: Anxiety, Depression Eyes: No Blurry vision, No Double vision HEENT: No: Heacaches, Sore Throat Hematological and Lymphatic: No: Bleeding Problems, Blood Clots Respiratory: No: Cough, Shortness of breath Cardiovascular: No Chest Pain, No Palpitations Gastrointestinal: No Nausea, No Vomiting, No Abdominal Pain Genitourinary: No Dysuria, No Hematuria Musculoskeletal: No Joint Pain, No Muscle Pain Neurological: No Headaches, No Impaired Coord/balance Skin: No Pruritus, No Rash Physical Exam General: Alert, Oriented X3, Cooperative, No acute distress HEENT: PERRLA, Mucous membr. moist/pink Lungs: Clear to auscultation, Normal air movement Heart: Regular rate, Normal S1, Normal S2 Abdomen: Soft, Other (ND, pd cath in place) Extremities: No clubbing, No cyanosis Skin: No rashes, No breakdown Neuro: Normal gait, Normal speech Psych/Mental Status: Mental status NL, Mood NL MUSCULOSKELETAL: No deformity, No swelling Vitals VITALS Vital Signs Date Time Temp Pulse Resp B/P (MAP) Pulse Ox O2 Delivery O2 Flow Rate FiO2 07/07/19 11:25 81 150/70 07/07/19 11:00 98.2 16 98 Room Air 98.2 07/07/19 03:00 2.0 Labs Labs Laboratory Tests Test 07/05/19 20:52 07/05/19 22:45 07/06/19 05:10 07/06/19 08:09 Glucose (Fingerstick) 87 mg/dL (70-99) 99 mg/dL (70-99) Heparin Anti-Xa Act, Unfractionated 0.48 IU/mL (0.30-0.70) 0.43 IU/mL (0.30-0.70) Sodium Level 140 mmol/L (136-145) 141 mmol/L (136-145) Potassium Level 3.8 mmol/L (3.5-5.1) 4.0 mmol/L (3.5-5.1) Chloride Level 96 mmol/L (98-107) 98 mmol/L (98-107) Carbon Dioxide Level 29 mmol/L (21-32) 29 mmol/L (21-32) Anion Gap 15 (6-14) 14 (6-14) Blood Urea Nitrogen 62 mg/dL (8-26) 63 mg/dL (8-26) Creatinine 18.6 mg/dL (0.7-1.3) 18.9 mg/dL (0.7-1.3) Estimated GFR (Cockcroft-Gault) 3.2 3.1 Glucose Level 108 mg/dL (70-99) 97 mg/dL (70-99) Calcium Level 7.0 mg/dL (8.5-10.1) 6.9 mg/dL (8.5-10.1) Troponin I Quantitative 2.145 ng/mL (0.000-0.055) 1.974 ng/mL (0.000-0.055) White Blood Count 8.1 x10^3/uL (4.0-11.0) Red Blood Count 3.31 x10^6/uL (4.30-5.70) Hemoglobin 10.5 g/dL (13.0-17.5) Hematocrit 31.3 % (39.0-53.0) Mean Corpuscular Volume 94 fL (79-100) Mean Corpuscular Hemoglobin 32 pg (25-35) Mean Corpuscular Hemoglobin Concent 34 g/dL (31-37) Red Cell Distribution Width 14.7 % (11.5-14.5) Platelet Count 206 x10^3/uL (140-400) Neutrophils (%) (Auto) 74 % (31-73) Lymphocytes (%) (Auto) 15 % (24-48) Monocytes (%) (Auto) 8 % (0-9) Eosinophils (%) (Auto) 3 % (0-3) Basophils (%) (Auto) 1 % (0-3) Neutrophils # (Auto) 6.0 x10^3/uL (1.8-7.7) Lymphocytes # (Auto) 1.2 x10^3/uL (1.0-4.8) Monocytes # (Auto) 0.6 x10^3/uL (0.0-1.1) Eosinophils # (Auto) 0.2 x10^3/uL (0.0-0.7) Basophils # (Auto) 0.1 x10^3/uL (0.0-0.2) Triglycerides Level 191 mg/dL (0-150) Cholesterol Level 180 mg/dL (0-200) LDL Cholesterol, Calculated 113 mg/dL (0-100) VLDL Cholesterol, Calculated 38 mg/dL (0-40) Non-HDL Cholesterol Calculated 151 mg/dL (0-129) HDL Cholesterol 29 mg/dL (40-60) Cholesterol/HDL Ratio 6.2 Test 07/06/19 12:26 07/06/19 21:09 07/07/19 06:33 Glucose (Fingerstick) 116 mg/dL (70-99) 86 mg/dL (70-99) White Blood Count 7.8 x10^3/uL (4.0-11.0) Red Blood Count 3.38 x10^6/uL (4.30-5.70) Hemoglobin 10.9 g/dL (13.0-17.5) Hematocrit 32.1 % (39.0-53.0) Mean Corpuscular Volume 95 fL (79-100) Mean Corpuscular Hemoglobin 32 pg (25-35) Mean Corpuscular Hemoglobin Concent 34 g/dL (31-37) Red Cell Distribution Width 14.7 % (11.5-14.5) Platelet Count 214 x10^3/uL (140-400) Neutrophils (%) (Auto) 78 % (31-73) Lymphocytes (%) (Auto) 11 % (24-48) Monocytes (%) (Auto) 8 % (0-9) Eosinophils (%) (Auto) 2 % (0-3) Basophils (%) (Auto) 1 % (0-3) Neutrophils # (Auto) 6.3 x10^3/uL (1.8-7.7) Lymphocytes # (Auto) 0.9 x10^3/uL (1.0-4.8) Monocytes # (Auto) 0.7 x10^3/uL (0.0-1.1) Eosinophils # (Auto) 0.2 x10^3/uL (0.0-0.7) Basophils # (Auto) 0.1 x10^3/uL (0.0-0.2) Laboratory Tests Test 07/06/19 21:09 07/07/19 06:33 Glucose (Fingerstick) 86 mg/dL (70-99) White Blood Count 7.8 x10^3/uL (4.0-11.0) Red Blood Count 3.38 x10^6/uL (4.30-5.70) Hemoglobin 10.9 g/dL (13.0-17.5) Hematocrit 32.1 % (39.0-53.0) Mean Corpuscular Volume 95 fL (79-100) Mean Corpuscular Hemoglobin 32 pg (25-35) Mean Corpuscular Hemoglobin Concent 34 g/dL (31-37) Red Cell Distribution Width 14.7 % (11.5-14.5) Platelet Count 214 x10^3/uL (140-400) Neutrophils (%) (Auto) 78 % (31-73) Lymphocytes (%) (Auto) 11 % (24-48) Monocytes (%) (Auto) 8 % (0-9) Eosinophils (%) (Auto) 2 % (0-3) Basophils (%) (Auto) 1 % (0-3) Neutrophils # (Auto) 6.3 x10^3/uL (1.8-7.7) Lymphocytes # (Auto) 0.9 x10^3/uL (1.0-4.8) Monocytes # (Auto) 0.7 x10^3/uL (0.0-1.1) Eosinophils # (Auto) 0.2 x10^3/uL (0.0-0.7) Basophils # (Auto) 0.1 x10^3/uL (0.0-0.2) Assessment/Plan Assessment/Plan Cardiac management, has been on heparin no acute issues with PD cath, will leave contact info for pt to FU in clinic for PD cath removal ILEANA BETANCOURT MD 07/08/19 1402: CONSULT Assessment/Plan Assessment/Plan Agree with above NATALIA DUFFY APRN Jul 07, 2019 12:50 ILEANA BETANCOURT MD Jul 08, 2019 14:02
--- NOTE | 2019-07-07 14:00 | PDOC ---
AMBAR GONZALEZ NETEZZA ARCHITECT 07/07/19 1400: CARDIO Progress Notes Date and Time Date of Service 07/07/2019 Time of Evaluation 1340 Subjective Subjective: No Chest Pain, No shortness of breath, No Palpitations, Other (feels weak, no further orbital complain) Vitals Vitals Vital Signs Date Time Temp Pulse Resp B/P (MAP) Pulse Ox O2 Delivery O2 Flow Rate FiO2 07/07/19 11:25 81 150/70 07/07/19 11:00 98.2 16 98 Room Air 98.2 07/07/19 03:00 2.0 Weight Weight [ ] Input and Output Intake and Output Intake and Output 07/07/19 07:00 Intake Total 780 ml Output Total 0 ml Balance 780 ml Intake Oral 780 ml Output Urine Total 0 ml Laboratory Labs Laboratory Tests Test 07/06/19 21:09 07/07/19 06:33 Glucose (Fingerstick) 86 mg/dL (70-99) White Blood Count 7.8 x10^3/uL (4.0-11.0) Red Blood Count 3.38 x10^6/uL (4.30-5.70) Hemoglobin 10.9 g/dL (13.0-17.5) Hematocrit 32.1 % (39.0-53.0) Mean Corpuscular Volume 95 fL (79-100) Mean Corpuscular Hemoglobin 32 pg (25-35) Mean Corpuscular Hemoglobin Concent 34 g/dL (31-37) Red Cell Distribution Width 14.7 % (11.5-14.5) Platelet Count 214 x10^3/uL (140-400) Neutrophils (%) (Auto) 78 % (31-73) Lymphocytes (%) (Auto) 11 % (24-48) Monocytes (%) (Auto) 8 % (0-9) Eosinophils (%) (Auto) 2 % (0-3) Basophils (%) (Auto) 1 % (0-3) Neutrophils # (Auto) 6.3 x10^3/uL (1.8-7.7) Lymphocytes # (Auto) 0.9 x10^3/uL (1.0-4.8) Monocytes # (Auto) 0.7 x10^3/uL (0.0-1.1) Eosinophils # (Auto) 0.2 x10^3/uL (0.0-0.7) Basophils # (Auto) 0.1 x10^3/uL (0.0-0.2) Review of Systems Constitutional: yes: alert, oriented Ears/Nose/Throat: Yes: no symptom reported Eyes: Yes: no symptom reported Pulmonary: Yes no symptom reported Cardiovascular: Yes no symptom reported Gastrointestional: Yes: no symptom reported Genitourinary: Yes: no symptom reported Musculoskeletal: Yes: no symptom reported Skin: Yes no symptom reported Psychiatric/Neurological: Yes: no symptom reported Endocrine: Yes: no symptom reported Physical Exam HEENT: Neck Supple W Full Motion Chest: Symmetric LUNGS: Clear to Auscultation Heart: S1S2, RRR (SR) Abdomen: Soft N/T Extremities: No Calf Tenderness, Other (1+ bilateral LE pitting edema) Neurology: alert, oriented, follow commands Assessment Assessment 1. NSTEMI: peaked at 2.1. LHC revealed 3vd moderate disease no PCI also with noted diffuse distal disease to major vessels 2. Acute small CVA to right frontal: neurology following. 3. CAD: result above 4. HTN: labile episodes 5. HLP 6. Metabolic syndrome 7. ESRD: on PD and transitioning to HD tentatively this Thursday with his LA AV fistula per pt 8. Hx of ICM: recovered. EF at 50% 9. right maxillary sinusitis ?chronic 10. Moderate AI Recommendations 1. Continue aldactone and coreg. Will add norvasc. 2. Lipitor. 40 mg qhs. Cardiac rehab. 3. Baby ASA and will add plavix if ok with neurology. May hold DAPT prior to outpt PD cath removal. 4. Fluid off loading per HD 5. Follow up in office as scheduled MELODIE GR MD 07/07/19 1519: CARDIO Progress Notes Assessment Assessment Patient seen and examined 1. NSTEMI: peaked at 2.1. LHC revealed 3vd moderate disease no PCI also with noted diffuse distal disease to major vessels. Continue medical treatment and good blood pressure control. 2. Acute small CVA to right frontal: neurology following. 3. CAD: result above 4. HTN: labile episodes 5. HLP 6. Metabolic syndrome 7. ESRD: on PD and transitioning to HD tentatively this Thursday with his LA AV fistula per pt 8. Hx of ICM: recovered. EF at 50% 9. Moderate AI GALIMBA,JHUNNE M NETEZZA ARCHITECT Jul 07, 2019 14:00 MELODIE GR MD Jul 07, 2019 15:19
--- NOTE | 2019-07-07 14:08 | PDOC2 ---
NEUROLOGY CONSULT Date of Admission Date of Admission DATE: 07/07/19 TIME: 13:44 Reason for Consult Reason for Consult: NEUROLOGY CONSULTATION. 07-06-2019 IMPRESSION: Acute small right frontal cortical surface infract. Left side facial numbness x 1 week. Hypertensive urgency, BP 219/105 mmHG. Metabolic encephalopathy. DM. HTN. HLD. CAD. Renal failure. Peptic ulcer. Morbid obesity. RECOMMENDATIONS/PLAN: Brain MRI performed. ASA 325 mg daily. Lipitor 40 mg HS. Carotid A US + Doppler. Echo + Bubble study. Lab: see orders. patient education for stroke prevention. Weight reduction. Diet. Exercise. History of Present Illness This is a 58-year-old AA male patient with above medical diseases presented with complaints of significant elevated blood pressure at dialysis on 07/05/19. Patient undergoes daily peritoneal dialysis. He reported symptoms of left facial heaviness and numbness that has been ongoing for the past 7 days. NIHSS 0. Neurology consultation was requested. Past Medical History Cardiovascular: CAD, HTN, Hyperlipidemia Pulmonary: Bronchitis CENTRAL NERVOUS SYSTEM: CVA GI: Peptic Ulcer disease Psych: Anxiety Musculoskeletal: Osteoarthritis Rheumatologic: Gout Renal/: Other Endocrine: Diabetes Past Surgical History No major surgery recently. Family History Heart Disease, Hypertension Social History Smoke: No ALCOHOL: none Drugs: None ALLERGY: NKDA MEDICATIONS: Refer to MAR REVIEW OF SYSTEMS: Constitutional: Obesity. Head: No traumatic brain or head injury. Skin: No edema, or rash. Ear: No infection. Eyes: No vision loss or color blindness. Nose: No bleeding or purulent discharges. Hearing: No hearing decrease. Neck: No injury. Cardiac: CAD, HTN, HLD. Pulmonary: No COPD. GI: GI ulcer. Urinary/genital: Renal failure on dialysis. Endocrinologic: Diabetes Mellitus, morbid obesity. Skeletomuscular: No muscular atrophy, deformity. Neurological: see HP. Psychiatric: Denies drug use/abuse. Otherwise, not [id number] review of systems. PHYSICAL EXAMINATION: General appearance is in subacute distress. HEENT: Normocephalic and nontraumatic. Eyes, nose, ears, and throat are unremarkable. Neck is supple. No lymphadenopathy. No bruits are heard over the carotid artery. No crepitus. Cardiovascular: S1, S2, regular rate and rhythm. Pulmonary: Clear to auscultation bilaterally. Abdomen: Bowel sounds are positive. Extremities: No rash, lesions, or edema. No restriction of range of motion NEUROLOGICAL EXAMINATION: Alert Oriented to time, place and person. PERRL. EOMI. CN: no focal findings. Muscle tone: within normal. Muscle strength: 5 DTR: 1 Plantar reflex: Flexor response bilaterally Gait: not examined in bed. Sensory exam: no abnormal findings. No cerebellar signs elicited. F-T-N test accurate. Current Medications Current Medications Current Medications Atorvastatin Calcium (Lipitor) 20 mg QHS PO Last administered on 07/05/19at 21:27; Start 07/05/19 at 21:00; Stop 07/06/19 at 16:12; Status DC Hydralazine HCl (Apresoline) 50 mg TID PO Last administered on 07/07/19at 11:25; Start 07/05/19 at 21:00 Heparin Sodium/ Dextrose 250 ml @ 0 mls/hr CONT PRN IV PER PROTOCOL Last administered on 07/06/19at 07:22; Start 07/06/19 at 00:15 Heparin Sodium (Porcine) (Heparin Sodium) 3,550 unit PRN Q6HRS PRN IV FOR UFH LEVEL LESS THAN 0.2; Start 07/06/19 at 00:15 Allopurinol (Zyloprim) 100 mg DAILY PO Last administered on 07/07/19at 11:26; Start 07/06/19 at 09:00 Atorvastatin Calcium (Lipitor) 20 mg QHS PO ; Start 07/06/19 at 21:00; Status Cancel Calcitriol (Rocaltrol) 0.25 mcg DAILY PO Last administered on 07/07/19 11:26; Start 07/06/19 at 09:00 Carvedilol (Coreg) 25 mg BIDWMEALS PO Last administered on 07/07/19at 11:25; S tart 07/06/19 at 09:30 EZETIMIBE (Zetia) 10 mg DAILY PO Last administered on 07/07/19at 11:25; Start 07/06/19 at 09:00 Hydralazine HCl (Apresoline) 50 mg TID PO ; Start 07/06/19 at 09:00; Stop 07/06/19 at 13:52; Status DC Acetaminophen/ Hydrocodone Bitart (Lortab 5/325) 1 tab PRN Q4HRS PRN PO pain; Start 07/06/19 at 09:00 Spironolactone (Aldactone) 25 mg DAILY PO Last administered on 07/07/19at 11:25; Start 07/06/19 at 09:00 Sevelamer Carbonate (Renvela) 800 mg TIDWMEALS PO Last administered on 07/07/19at 11:26; Start 07/06/19 at 12:00 Amlodipine Besylate (Norvasc) 10 mg 1X ONCE PO Last administered on 07/06/19at 09:46; Start 07/06/19 at 09:00; Stop 07/06/19 at 09:34; Status DC Amlodipine Besylate (Norvasc) 5 mg STK-MED ONCE .ROUTE ; Start 07/06/19 at 09: 35; Stop 07/06/19 at 09:35; Status DC Fentanyl Citrate (Fentanyl 2ml Vial) 100 mcg STK-MED ONCE .ROUTE ; Start 07/06/19 at 09:46; Stop 07/06/19 at 09:46; Status DC Midazolam HCl (Versed) 5 mg STK-MED ONCE .ROUTE ; Start 07/06/19 at 09:46; Stop 07/06/19 at 09:46; Status DC Verapamil HCl (Verapamil) 5 mg STK-MED ONCE .ROUTE ; Start 07/06/19 at 09:46; Stop 07/06/19 at 09:46; Status DC Lidocaine HCl (Lidocaine 1% 20ml Vial) 20 ml STK-MED ONCE .ROUTE ; Start 07/06/19 at 09:46; Stop 07/06/19 at 09:47; Status DC Heparin Sodium/ Sodium Chloride 1,000 ml @ As Directed STK-MED ONCE .ROUTE ; Start 07/06/19 at 09:46; Stop 07/06/19 at 09:47; Status DC Nitroglycerin (Nitroglycerin) 200 mcg STK-MED ONCE .ROUTE ; Start 07/06/19 at 09:46; Stop 07/06/19 at 09:47; Status DC Heparin Sodium (Porcine) (Heparin Sodium) 10,000 unit STK-MED ONCE .ROUTE ; Start 07/06/19 at 09:48; Stop 07/06/19 at 09:48; Status DC Nitroglycerin (Nitroglycerin) 200 mcg 1X ONCE IART Last administered on 07/06/19at 10:51; Start 07/06/19 at 10:45; Stop 07/06/19 at 10:51; Status DC Verapamil HCl (Verapamil) 2.5 mg 1X ONCE IART Last administered on 07/06/19at 10:57; Start 07/06/19 at 10:45; Stop 07/06/19 at 10:51; Status DC Heparin Sodium (Porcine) (Heparin Sodium) 2,500 unit 1X ONCE IART Last administered on 07/06/19at 10:58; Start 07/06/19 at 10:45; Stop 07/06/19 at 10:51; Status DC Heparin Sodium/ Sodium Chloride (HEPARIN for ARTERIAL LINE FLUSH) 1,000 unit 1X ONCE IART Last administered on 07/06/19at 10:50; Start 07/06/19 at 10:45; Stop 07/06/19 at 10:51; Status DC Heparin Sodium/ Sodium Chloride (HEPARIN for ARTERIAL LINE FLUSH) 1,000 unit 1X ONCE IART Last administered on 07/06/19at 10:50; Start 07/06/19 at 10:45; Stop 07/06/19 at 10:51; Status DC Midazolam HCl (Versed) 5 mg 1X ONCE IV Last administered on 07/06/19at 10:56; Start 07/06/19 at 10:45; Stop 07/06/19 at 10:51; Status DC Fentanyl Citrate (Fentanyl 2ml Vial) 100 mcg 1X ONCE IV Last administered on 07/06/19at 10:57; Start 07/06/19 at 10:45; Stop 07/06/19 at 10:51; Status DC Iodixanol (Visipaque 320) 100 ml 1X ONCE IART Last administered on 07/06/19at 10:55; Start 07/06/19 at 10:45; Stop 07/06/19 at 10:51; Status DC Lidocaine HCl (Lidocaine 1% 20ml Vial) 20 ml 1X ONCE INJ Last administered on 07/06/19at 10:56; Start 07/06/19 at 10:45; Stop 07/06/19 at 10:51; Status DC Info (CONTRAST GIVEN -- Rx MONITORING) 1 each PRN DAILY PRN MC SEE COMMENTS; Start 07/06/19 at 11:00; Stop 07/08/19 at 10:59 Sodium Chloride (Normal Saline Flush) 3 ml QSHIFT PRN IV AFTER MEDS AND BLOOD DRAWS; Start 07/06/19 at 11:00 Sodium Chloride 1,000 ml @ 60 mls/hr [id number] IV ; Start 07/06/19 at 10:54; Stop 07/06/19 at 14:53; Status DC Nitroglycerin (Nitrostat) 0.4 mg PRN Q5MIN PRN SL CHEST PAIN; Start 07/06/19 at 11:00 Sodium Chloride 1,000 ml @ 1,000 mls/hr Q1H PRN IV hypotension; Start 07/06/19 at 15:41; Stop 07/06/19 at 21:40; Status DC Acetaminophen (Tylenol) 500 mg 1X PRN PRN PO MILD PAIN / TEMP; Start 07/06/19 at 15:45; Stop 07/07/19 at 15:44 Diphenhydramine HCl (Benadryl) 25 mg 1X PRN PRN IV ITCHING; Start 07/06/19 at 15:45; Stop 07/07/19 at 15:44 Diphenhydramine HCl (Benadryl) 25 mg 1X PRN PRN IV ITCHING; Start 07/06/19 at 15:45; Stop 07/07/19 at 15:44 Sodium Chloride 1,000 ml @ 400 mls/hr Q2H30M PRN IV PATENCY; Start 07/06/19 at 15:41; Stop 07/07/19 at 03:40; Status DC Info (PHARMACY MONITORING -- do not chart) 1 each PRN DAILY PRN MC SEE COMMENTS; Start 07/06/19 at 15:45 Atorvastatin Calcium (Lipitor) 40 mg QHS PO Last administered on 07/06/19at 21:05; Start 07/06/19 at 21:00 Aspirin (Ecotrin) 81 mg DAILYWBKFT PO Last administered on 07/07/19at 11:26; Start 07/06/19 at 17:00 Active Scripts Active Meclizine Hcl 25 Mg Tablet 1 Tab PO PRN TID PRN Reported Velphoro (Sucroferric Oxyhydroxide) 500 Mg Tab.chew 500 Mg PO TIDWMEALS Calcitriol 0.25 Mcg Capsule 0.25 Mcg PO DAILY Hydralazine Hcl 50 Mg Tablet 50 Mg PO TID Zetia (Ezetimibe) 10 Mg Tablet 10 Mg PO DAILY Spironolactone 25 Mg Tablet 25 Mg PO DAILY Allopurinol 100 Mg Tablet 100 Mg PO DAILY 1/2 tab po daily [place] 5-325 Tablet (Acetaminophen/Hydrocodone Bitart) 1 Each Tablet 1-2 Tab PO Q4-6HRS Ferric Citrate 210 Mg Tablet 210 Mg PO TIDAC 2 tabs for breakfast and lunch, 3 tabs for dinner Carvedilol (Carvedilol) 3.125 Mg Tablet 25 Mg PO BIDWMEALS Furosemide 40 Mg Tablet 1 Tab PO BID Atorvastatin Calcium 20 Mg Tablet 1 Tab PO QHS Renagel (Sevelamer Hcl) 800 Mg Tablet 800 Mg PO TIDWMEALS Allergies Allergies: Allergies Coded Allergies Type Severity Reaction Last Updated Verified No Known Allergies Allergy Unknown 09/15/18 Yes ROS Review of System The patient denies any associated fevers, chills, headache, ear pain, rhinorrhea, sore throat, stiff neck, productive cough, chest pain, shortness of breath, back or flank pain, abdominal pain, nausea, vomiting, diarrhea, constipation, dysuria, rash, numbness, weakness, tingling, incontinence, difficulty ambulating, or diaphoresis. Physical Exam Physical Exam General: Well developed, well nourished, no acute distress, well appearing HEENT: Pupils equally round and reactive to light, EOMI, no discharge, normal conjunctiva Neck: Supple, no nuchal rigidity, no JVD, trachea midline, no tenderness Cardiac: RRR, no murmurs, no gallops, no rubs Chest/Lungs: CTAB, no wheeze, no rhonchi, no crackles Abdomen: soft, non-distended, no guarding, no peritoneal signs, non-tender Back: No tenderness Extremities: no edema, pulses intact, non-tender,capillary refill <3 sec bilateral upper and lower extremities, Neuro: Alert and oriented x 4, no focal deficits, normal speech Vitals Vitals: Vital Signs Date Time Temp Pulse Resp B/P (MAP) Pulse Ox O2 Delivery O2 Flow Rate FiO2 07/07/19 11:25 81 150/70 07/07/19 11:00 98.2 16 98 Room Air 98.2 07/07/19 03:00 2.0 Labs Labs Laboratory Tests Test 07/05/19 20:52 07/05/19 22:45 07/06/19 05:10 07/06/19 08:09 Glucose (Fingerstick) 87 mg/dL (70-99) 99 mg/dL (70-99) Heparin Anti-Xa Act, Unfractionated 0.48 IU/mL (0.30-0.70) 0.43 IU/mL (0.30-0.70) Sodium Level 140 mmol/L (136-145) 141 mmol/L (136-145) Potassium Level 3.8 mmol/L (3.5-5.1) 4.0 mmol/L (3.5-5.1) Chloride Level 96 mmol/L (98-107) 98 mmol/L (98-107) Carbon Dioxide Level 29 mmol/L (21-32) 29 mmol/L (21-32) Anion Gap 15 (6-14) 14 (6-14) Blood Urea Nitrogen 62 mg/dL (8-26) 63 mg/dL (8-26) Creatinine 18.6 mg/dL (0.7-1.3) 18.9 mg/dL (0.7-1.3) Estimated GFR (Cockcroft-Gault) 3.2 3.1 Glucose Level 108 mg/dL (70-99) 97 mg/dL (70-99) Calcium Level 7.0 mg/dL (8.5-10.1) 6.9 mg/dL (8.5-10.1) Troponin I Quantitative 2.145 ng/mL (0.000-0.055) 1.974 ng/mL (0.000-0.055) White Blood Count 8.1 x10^3/uL (4.0-11.0) Red Blood Count 3.31 x10^6/uL (4.30-5.70) Hemoglobin 10.5 g/dL (13.0-17.5) Hematocrit 31.3 % (39.0-53.0) Mean Corpuscular Volume 94 fL (79-100) Mean Corpuscular Hemoglobin 32 pg (25-35) Mean Corpuscular Hemoglobin Concent 34 g/dL (31-37) Red Cell Distribution Width 14.7 % (11.5-14.5) Platelet Count 206 x10^3/uL (140-400) Neutrophils (%) (Auto) 74 % (31-73) Lymphocytes (%) (Auto) 15 % (24-48) Monocytes (%) (Auto) 8 % (0-9) Eosinophils (%) (Auto) 3 % (0-3) Basophils (%) (Auto) 1 % (0-3) Neutrophils # (Auto) 6.0 x10^3/uL (1.8-7.7) Lymphocytes # (Auto) 1.2 x10^3/uL (1.0-4.8) Monocytes # (Auto) 0.6 x10^3/uL (0.0-1.1) Eosinophils # (Auto) 0.2 x10^3/uL (0.0-0.7) Basophils # (Auto) 0.1 x10^3/uL (0.0-0.2) Triglycerides Level 191 mg/dL (0-150) Cholesterol Level 180 mg/dL (0-200) LDL Cholesterol, Calculated 113 mg/dL (0-100) VLDL Cholesterol, Calculated 38 mg/dL (0-40) Non-HDL Cholesterol Calculated 151 mg/dL (0-129) HDL Cholesterol 29 mg/dL (40-60) Cholesterol/HDL Ratio 6.2 Test 07/06/19 12:26 07/06/19 21:09 07/07/19 06:33 Glucose (Fingerstick) 116 mg/dL (70-99) 86 mg/dL (70-99) White Blood Count 7.8 x10^3/uL (4.0-11.0) Red Blood Count 3.38 x10^6/uL (4.30-5.70) Hemoglobin 10.9 g/dL (13.0-17.5) Hematocrit 32.1 % (39.0-53.0) Mean Corpuscular Volume 95 fL (79-100) Mean Corpuscular Hemoglobin 32 pg (25-35) Mean Corpuscular Hemoglobin Concent 34 g/dL (31-37) Red Cell Distribution Width 14.7 % (11.5-14.5) Platelet Count 214 x10^3/uL (140-400) Neutrophils (%) (Auto) 78 % (31-73) Lymphocytes (%) (Auto) 11 % (24-48) Monocytes (%) (Auto) 8 % (0-9) Eosinophils (%) (Auto) 2 % (0-3) Basophils (%) (Auto) 1 % (0-3) Neutrophils # (Auto) 6.3 x10^3/uL (1.8-7.7) Lymphocytes # (Auto) 0.9 x10^3/uL (1.0-4.8) Monocytes # (Auto) 0.7 x10^3/uL (0.0-1.1) Eosinophils # (Auto) 0.2 x10^3/uL (0.0-0.7) Basophils # (Auto) 0.1 x10^3/uL (0.0-0.2) Laboratory Tests Test 07/06/19 21:09 07/07/19 06:33 Glucose (Fingerstick) 86 mg/dL (70-99) White Blood Count 7.8 x10^3/uL (4.0-11.0) Red Blood Count 3.38 x10^6/uL (4.30-5.70) Hemoglobin 10.9 g/dL (13.0-17.5) Hematocrit 32.1 % (39.0-53.0) Mean Corpuscular Volume 95 fL (79-100) Mean Corpuscular Hemoglobin 32 pg (25-35) Mean Corpuscular Hemoglobin Concent 34 g/dL (31-37) Red Cell Distribution Width 14.7 % (11.5-14.5) Platelet Count 214 x10^3/uL (140-400) Neutrophils (%) (Auto) 78 % (31-73) Lymphocytes (%) (Auto) 11 % (24-48) Monocytes (%) (Auto) 8 % (0-9) Eosinophils (%) (Auto) 2 % (0-3) Basophils (%) (Auto) 1 % (0-3) Neutrophils # (Auto) 6.3 x10^3/uL (1.8-7.7) Lymphocytes # (Auto) 0.9 x10^3/uL (1.0-4.8) Monocytes # (Auto) 0.7 x10^3/uL (0.0-1.1) Eosinophils # (Auto) 0.2 x10^3/uL (0.0-0.7) Basophils # (Auto) 0.1 x10^3/uL (0.0-0.2) BLESSING HAMMER MD Jul 07, 2019 14:08
--- NOTE | 2019-07-07 14:10 | PDOC ---
PROGRESS NOTES Assessment Assessment Acute small right frontal cortical surface infract. Left side facial numbness x 1 week. Hypertensive urgency, BP 219/105 mmHG. Metabolic encephalopathy. DM. HTN. HLD. CAD. Renal failure. Peptic ulcer. Morbid obesity. RECOMMENDATIONS/PLAN: Plavix 75 mg daily. ASA 81 mg daily. Lipitor 40 mg HS. Patient education for stroke prevention. Weight reduction. Diet. Exercise. FU with PCP. FU with Neurology as needed. History of Present Illness This is a 58-year-old AA male patient with above medical diseases presented with complaints of significant elevated blood pressure at dialysis on 07/05/19. Patient undergoes daily peritoneal dialysis. He reported symptoms of left facial heaviness and numbness that has been ongoing for the past 7 days. NIHSS 0. Neurology consultation was requested. 07/07/19: Left side facial symptoms resolved since 07/06/19. Past Medical History Cardiovascular: CAD, HTN, Hyperlipidemia Pulmonary: Bronchitis CENTRAL NERVOUS SYSTEM: CVA GI: Peptic Ulcer disease Psych: Anxiety Musculoskeletal: Osteoarthritis Rheumatologic: Gout Renal/: Other Endocrine: Diabetes Past Surgical History No major surgery recently. Family History Heart Disease, Hypertension Social History Smoke: No ALCOHOL: none Drugs: None ALLERGY: NKDA MEDICATIONS: Refer to MAR REVIEW OF SYSTEMS: Constitutional: Obesity. Head: No traumatic brain or head injury. Skin: No edema, or rash. Ear: No infection. Eyes: No vision loss or color blindness. Nose: No bleeding or purulent discharges. Hearing: No hearing decrease. Neck: No injury. Cardiac: CAD, HTN, HLD. Pulmonary: No COPD. GI: GI ulcer. Urinary/genital: Renal failure on dialysis. Endocrinologic: Diabetes Mellitus, morbid obesity. Skeletomuscular: No muscular atrophy, deformity. Neurological: see HP. Psychiatric: Denies drug use/abuse. Otherwise, not [id number] review of systems. PHYSICAL EXAMINATION: General appearance is in subacute distress. HEENT: Normocephalic and nontraumatic. Eyes, nose, ears, and throat are unremarkable. Neck is supple. No lymphadenopathy. No bruits are heard over the carotid artery. No crepitus. Cardiovascular: S1, S2, regular rate and rhythm. Pulmonary: Clear to auscultation bilaterally. Abdomen: Bowel sounds are positive. Extremities: No rash, lesions, or edema. No restriction of range of motion NEUROLOGICAL EXAMINATION: Alert Oriented to time, place and person. PERRL. EOMI. CN: no focal findings. Muscle tone: within normal. Muscle strength: 5 DTR: 1 Plantar reflex: Flexor response bilaterally Gait: not examined while in bed. Sensory exam: no abnormal findings. No cerebellar signs elicited. F-T-N test accurate. Objective Objective Vital Signs Date Time Temp Pulse Resp B/P (MAP) Pulse Ox O2 Delivery O2 Flow Rate FiO2 07/07/19 11:25 81 150/70 07/07/19 11:00 98.2 16 98 Room Air 98.2 07/07/19 03:00 2.0 Intake and Output 07/07/19 07:00 Intake Total 780 ml Output Total 0 ml Balance 780 ml Intake Oral 780 ml Output Urine Total 0 ml Vitals Signs Vitals VS - Last 72 Hours, by Label Date Time Temp Pulse Resp B/P (MAP) Pulse Ox O2 Delivery O2 Flow Rate FiO2 07/07/19 11:25 81 150/70 07/07/19 11:25 81 150/70 07/07/19 11:00 98.2 63 16 150/70 (96) 98 Room Air 98.2 07/07/19 08:00 Room Air 07/07/19 07:00 98.1 81 20 153/70 (97) 95 Room Air 98.1 07/07/19 03:00 98.8 81 16 161/77 (105) 98 Nasal Cannula 2.0 98.8 07/06/19 23:00 98.4 94 165/74 (104) 97 Room Air 98.4 07/06/19 21:06 Room Air 07/06/19 21:05 112 189/77 07/06/19 20:59 98.5 112 22 189/77 (114) 97 Room Air 98.5 07/06/19 15:57 88 204/100 07/06/19 15:00 98.1 88 18 204/100 (134) 97 Room Air 98.1 07/06/19 13:09 100 219/105 (143) 95 Room Air 07/06/19 12:45 84 200/86 (124) 96 Room Air 07/06/19 12:15 84 215/85 (128) 95 Room Air 07/06/19 12:00 90 216/88 (130) 96 Room Air 07/06/19 11:50 83 178/77 07/06/19 11:50 83 178/77 07/06/19 11:45 72 178/77 (110) 97 Room Air 07/06/19 11:30 76 177/79 (111) 97 Room Air 07/06/19 11:27 95 Room Air 07/06/19 11:15 78 173/75 (107) 96 Room Air 07/06/19 11:00 83 21 98 Nasal Cannula 2.0 07/06/19 11:00 97.8 82 16 117/79 (92) 95 Room Air 97.8 07/06/19 10:57 18 98 Nasal Cannula 2.0 07/06/19 10:57 87 204/79 07/06/19 09:46 88 172/79 07/06/19 08:00 Room Air 07/06/19 07:00 97.9 82 16 172/79 (110) 95 Room Air 97.9 Laboratory Laboratory Laboratory Tests Test 07/06/19 21:09 07/07/19 06:33 Glucose (Fingerstick) 86 mg/dL (70-99) White Blood Count 7.8 x10^3/uL (4.0-11.0) Red Blood Count 3.38 x10^6/uL (4.30-5.70) Hemoglobin 10.9 g/dL (13.0-17.5) Hematocrit 32.1 % (39.0-53.0) Mean Corpuscular Volume 95 fL (79-100) Mean Corpuscular Hemoglobin 32 pg (25-35) Mean Corpuscular Hemoglobin Concent 34 g/dL (31-37) Red Cell Distribution Width 14.7 % (11.5-14.5) Platelet Count 214 x10^3/uL (140-400) Neutrophils (%) (Auto) 78 % (31-73) Lymphocytes (%) (Auto) 11 % (24-48) Monocytes (%) (Auto) 8 % (0-9) Eosinophils (%) (Auto) 2 % (0-3) Basophils (%) (Auto) 1 % (0-3) Neutrophils # (Auto) 6.3 x10^3/uL (1.8-7.7) Lymphocytes # (Auto) 0.9 x10^3/uL (1.0-4.8) Monocytes # (Auto) 0.7 x10^3/uL (0.0-1.1) Eosinophils # (Auto) 0.2 x10^3/uL (0.0-0.7) Basophils # (Auto) 0.1 x10^3/uL (0.0-0.2) Medication Medications Current Medications Acetaminophen (Tylenol) 500 mg 1X PRN PRN PO MILD PAIN / TEMP; Start 07/06/19 a t 15:45; Stop 07/07/19 at 15:44 Aspirin (Ecotrin) 81 mg DAILYWBKFT PO Last administered on 07/07/19at 11:26; Start 07/06/19 at 17:00 Atorvastatin Calcium (Lipitor) 20 mg QHS PO ; Start 07/06/19 at 21:00; Status Cancel Atorvastatin Calcium (Lipitor) 40 mg QHS PO Last administered on 07/06/19at 21:05; Start 07/06/19 at 21:00 Diphenhydramine HCl (Benadryl) 25 mg 1X PRN PRN IV ITCHING; Start 07/06/19 at 15:45; Stop 07/07/19 at 15:44 Diphenhydramine HCl (Benadryl) 25 mg 1X PRN PRN IV ITCHING; Start 07/06/19 at 15:45; Stop 07/07/19 at 15:44 Info (PHARMACY MONITORING -- do not chart) 1 each PRN DAILY PRN MC SEE COMMENTS; Start 07/06/19 at 15:45 Sodium Chloride 1,000 ml @ 400 mls/hr Q2H30M PRN IV PATENCY; Start 07/06/19 at 15:41; Stop 07/07/19 at 03:40; Status DC Sodium Chloride 1,000 ml @ 1,000 mls/hr Q1H PRN IV hypotension; Start 07/06/19 at 15:41; Stop 07/06/19 at 21:40; Status DC Comment Review of Relevant I have reviewed the following items katia (where applicable) has been applied. BLESSING HAMMRE MD Jul 07, 2019 14:10
[2019-07-07 15:00] VITALS: BP 163/75
--- NOTE | 2019-07-07 15:01 | NUR ---
SS following up with discharge planning. Referral for advanced directive information received. SS provided pt with Healthcare DPOA information. SS will continue to follow for discharge planning.
[2019-07-07] MEDS: CLOPIDOGREL BISULFATE 75 MG TABLET PO SCH (15:32)
[2019-07-07] MEDS ORDERED: ATOR40TA59 PO (16:14)
[2019-07-07 17:00] VITALS: BP 182/89
[2019-07-07 19:00] VITALS: BP 182/89
[2019-07-07] MEDS: ATORVASTATIN CALCIUM 40 MG TABLET. PO SCH (20:16)
[2019-07-08 00:15] VITALS: BP 123/60
[2019-07-08 03:36] VITALS: BP 135/63
[2019-07-08 07:00] VITALS: BP 137/65
[2019-07-08] MEDS: ASPIRIN ENTERIC COATED 81 MG TABLET.DR. PO SCH (08:50)
[2019-07-08 08:51] LABS: BASO % 1 % (0-3); EOS # 0.1 x10^3/uL (0.0-0.7); EOS % 2 % (0-3); HEMOGLOBIN 9.7 g/dL (13.0-17.5); LYMPH # 0.9 x10^3/uL (1.0-4.8); LYMPH % 13 % (24-48); MEAN CORPUSCULAR HEMOGLOBIN 32 pg (25-35); MEAN CORPUSCULAR HGB CONC 34 g/dL (31-37); MEAN CORPUSCULAR VOLUME 95 fL (79-100); MONO # 0.6 x10^3/uL (0.0-1.1); MONO % 8 % (0-9); NEUT # 5.2 x10^3/uL (1.8-7.7); NEUT % 76 % (31-73); PLATELET COUNT 165 x10^3/uL (140-400); RED BLOOD COUNT 3.05 x10^6/uL (4.30-5.70); RED CELL DISTRIBUTION WIDTH 14.4 % (11.5-14.5); WHITE BLOOD COUNT 6.8 x10^3/uL (4.0-11.0)
[2019-07-08] MEDS: EZETIMIBE 10 MG TABLET. PO SCH (08:52)
[2019-07-08] MEDS: CLOPIDOGREL BISULFATE 75 MG TABLET PO SCH (08:52)
[2019-07-08] MEDS: SEVELAMER CARBONATE 800 MG TABLET. PO SCH ×2 (08:52→15:32)
[2019-07-08] MEDS: ALLOPURINOL 100 MG TABLET. PO SCH (08:53)
[2019-07-08] MEDS: CALCITRIOL 0.25 MCG CAPSULE. PO SCH (08:53)
[2019-07-08] MEDS: SPIRONOLACTONE 25 MG TABLET PO SCH (08:53)
[2019-07-08] MEDS ORDERED: amLODIPine BESYLATE 10 MG TABLET PO SCH (09:00)
--- NOTE | 2019-07-08 09:01 | PDOC ---
PROGRESS NOTES Assessment Acute small right frontal cortical surface infract. Left side facial numbness x 1 week. Hypertensive urgency, BP 219/105 mmHG. Metabolic encephalopathy. DM. HTN. HLD. CAD. Renal failure. Peptic ulcer. Morbid obesity. Plan Plavix 75 mg daily. ASA 81 mg daily. Lipitor 40 mg HS. Patient education for stroke prevention. Weight reduction. Diet. Exercise. FU with PCP, I told patient to discuss the knee pain with his PCP if it persis ts. FU with Neurology as needed. Okay for discharge Subjective Has some right knee pain Objective Vital Signs Date Time Temp Pulse Resp B/P (MAP) Pulse Ox O2 Delivery O2 Flow Rate FiO2 07/08/19 08:56 87 137/65 07/08/19 03:36 98.6 19 98 Nasal Cannula 1.0 98.6 Intake and Output 07/08/19 07:00 Intake Total 360 ml Balance 360 ml Intake Oral 360 ml # Bowel Movements 1 PHYSICAL EXAM Alert. Oriented to time, place and person. PERRL. EOMI. CN: no focal findings. Muscle tone: normal. Muscle strength: 5/5 DTR: 1+ Plantar reflex: flexor Gait: not examined in bed. Sensory exam: no abnormal findings. No cerebellar signs elicited. Review of Relevant I have reviewed the following items katia (where applicable) has been applied. Labs Laboratory Tests Test 07/06/19 12:26 07/06/19 21:09 07/07/19 06:33 07/08/19 08:02 Glucose (Fingerstick) 116 mg/dL (70-99) 86 mg/dL (70-99) 89 mg/dL (70-99) White Blood Count 7.8 x10^3/uL (4.0-11.0) Red Blood Count 3.38 x10^6/uL (4.30-5.70) Hemoglobin 10.9 g/dL (13.0-17.5) Hematocrit 32.1 % (39.0-53.0) Mean Corpuscular Volume 95 fL (79-100) Mean Corpuscular Hemoglobin 32 pg (25-35) Mean Corpuscular Hemoglobin Concent 34 g/dL (31-37) Red Cell Distribution Width 14.7 % (11.5-14.5) Platelet Count 214 x10^3/uL (140-400) Neutrophils (%) (Auto) 78 % (31-73) Lymphocytes (%) (Auto) 11 % (24-48) Monocytes (%) (Auto) 8 % (0-9) Eosinophils (%) (Auto) 2 % (0-3) Basophils (%) (Auto) 1 % (0-3) Neutrophils # (Auto) 6.3 x10^3/uL (1.8-7.7) Lymphocytes # (Auto) 0.9 x10^3/uL (1.0-4.8) Monocytes # (Auto) 0.7 x10^3/uL (0.0-1.1) Eosinophils # (Auto) 0.2 x10^3/uL (0.0-0.7) Basophils # (Auto) 0.1 x10^3/uL (0.0-0.2) Test 07/08/19 08:08 White Blood Count 6.8 x10^3/uL (4.0-11.0) Red Blood Count 3.05 x10^6/uL (4.30-5.70) Hemoglobin 9.7 g/dL (13.0-17.5) Hematocrit 29.0 % (39.0-53.0) Mean Corpuscular Volume 95 fL (79-100) Mean Corpuscular Hemoglobin 32 pg (25-35) Mean Corpuscular Hemoglobin Concent 34 g/dL (31-37) Red Cell Distribution Width 14.4 % (11.5-14.5) Platelet Count 165 x10^3/uL (140-400) Neutrophils (%) (Auto) 76 % (31-73) Lymphocytes (%) (Auto) 13 % (24-48) Monocytes (%) (Auto) 8 % (0-9) Eosinophils (%) (Auto) 2 % (0-3) Basophils (%) (Auto) 1 % (0-3) Neutrophils # (Auto) 5.2 x10^3/uL (1.8-7.7) Lymphocytes # (Auto) 0.9 x10^3/uL (1.0-4.8) Monocytes # (Auto) 0.6 x10^3/uL (0.0-1.1) Eosinophils # (Auto) 0.1 x10^3/uL (0.0-0.7) Basophils # (Auto) 0.0 x10^3/uL (0.0-0.2) Laboratory Tests Test 07/08/19 08:02 07/08/19 08:08 Glucose (Fingerstick) 89 mg/dL (70-99) White Blood Count 6.8 x10^3/uL (4.0-11.0) Red Blood Count 3.05 x10^6/uL (4.30-5.70) Hemoglobin 9.7 g/dL (13.0-17.5) Hematocrit 29.0 % (39.0-53.0) Mean Corpuscular Volume 95 fL (79-100) Mean Corpuscular Hemoglobin 32 pg (25-35) Mean Corpuscular Hemoglobin Concent 34 g/dL (31-37) Red Cell Distribution Width 14.4 % (11.5-14.5) Platelet Count 165 x10^3/uL (140-400) Neutrophils (%) (Auto) 76 % (31-73) Lymphocytes (%) (Auto) 13 % (24-48) Monocytes (%) (Auto) 8 % (0-9) Eosinophils (%) (Auto) 2 % (0-3) Basophils (%) (Auto) 1 % (0-3) Neutrophils # (Auto) 5.2 x10^3/uL (1.8-7.7) Lymphocytes # (Auto) 0.9 x10^3/uL (1.0-4.8) Monocytes # (Auto) 0.6 x10^3/uL (0.0-1.1) Eosinophils # (Auto) 0.1 x10^3/uL (0.0-0.7) Basophils # (Auto) 0.0 x10^3/uL (0.0-0.2) Medications Current Medications Atorvastatin Calcium (Lipitor) 20 mg QHS PO Last administered on 07/05/19at 21:27; Start 07/05/19 at 21:00; Stop 07/06/19 at 16:12; Status DC Hydralazine HCl (Apresoline) 50 mg TID PO Last administered on 07/07/19at 20:17; Start 07/05/19 at 21:00 Heparin Sodium/ Dextrose 250 ml @ 0 mls/hr CONT PRN IV PER PROTOCOL Last administered on 07/06/19at 07:22; Start 07/06/19 at 00:15; Stop 07/07/19 at 16:02; Status DC Heparin Sodium (Porcine) (Heparin Sodium) 3,550 unit PRN Q6HRS PRN IV FOR UFH LEVEL LESS THAN 0.2; Start 07/06/19 at 00:15; Status Cancel Allopurinol (Zyloprim) 100 mg DAILY PO Last administered on 07/08/19at 08:53; Start 07/06/19 at 09:00 Atorvastatin Calcium (Lipitor) 20 mg QHS PO ; Start 07/06/19 at 21:00; Status Cancel Calcitriol (Rocaltrol) 0.25 mcg DAILY PO Last administered on 07/08/19at 08:53; Start 07/06/19 at 09:00 Carvedilol (Coreg) 25 mg BIDWMEALS PO Last administered on 07/07/19at 17:31; Start 07/06/19 at 09:30 EZETIMIBE (Zetia) 10 mg DAILY PO Last administered on 07/08/19at 08:52; Start 07/06/19 at 09:00 Hydralazine HCl (Apresoline) 50 mg TID PO ; Start 07/06/19 at 09:00; Stop 07/06/19 at 13:52; Status DC Acetaminophen/ Hydrocodone Bitart (Lortab 5/325) 1 tab PRN Q4HRS PRN PO pain; Start 07/06/19 at 09:00 Spironolactone (Aldactone) 25 mg DAILY PO Last administered on 07/08/19at 08:53; Start 07/06/19 at 09:00 Sevelamer Carbonate (Renvela) 800 mg TIDWMEALS PO Last administered on 07/08/19at 08:52; Start 07/06/19 at 12:00 Amlodipine Besylate (Norvasc) 10 mg 1X ONCE PO Last administered on 07/06/19at 09:46; Start 07/06/19 at 09:00; Stop 07/06/19 at 09:34; Status DC Amlodipine Besylate (Norvasc) 5 mg STK-MED ONCE .ROUTE ; Start 07/06/19 at 09:35; Stop 07/06/19 at 09:35; Status DC Fentanyl Citrate (Fentanyl 2ml Vial) 100 mcg STK-MED ONCE .ROUTE ; Start 07/06/19 at 09:46; Stop 07/06/19 at 09:46; Status DC Midazolam HCl (Versed) 5 mg STK-MED ONCE .ROUTE ; Start 07/06/19 at 09:46; Stop 07/06/19 at 09:46; Status DC Verapamil HCl (Verapamil) 5 mg STK-MED ONCE .ROUTE ; Start 07/06/19 at 09:46; Stop 07/06/19 at 09:46; Status DC Lidocaine HCl (Lidocaine 1% 20ml Vial) 20 ml STK-MED ONCE .ROUTE ; Start 07/06/19 at 09:46; Stop 07/06/19 at 09:47; Status DC Heparin Sodium/ Sodium Chloride 1,000 ml @ As Directed STK-MED ONCE .ROUTE ; Start 07/06/19 at 09:46; Stop 07/06/19 at 09:47; Status DC Nitroglycerin (Nitroglycerin) 200 mcg STK-MED ONCE .ROUTE ; Start 07/06/19 at 09:46; Stop 07/06/19 at 09:47; Status DC Heparin Sodium (Porcine) (Heparin Sodium) 10,000 unit STK-MED ONCE .ROUTE ; Start 07/06/19 at 09:48; Stop 07/06/19 at 09:48; Status DC Nitroglycerin (Nitroglycerin) 200 mcg 1X ONCE IART Last administered on 07/06/19at 10:51; Start 07/06/19 at 10:45; Stop 07/06/19 at 10:51; Status DC Verapamil HCl (Verapamil) 2.5 mg 1X ONCE IART Last administered on 07/06/19at 10:57; Start 07/06/19 at 10:45; Stop 07/06/19 at 10:51; Status DC Heparin Sodium (Porcine) (Heparin Sodium) 2,500 unit 1X ONCE IART Last administered on 07/06/19at 10:58; Start 07/06/19 at 10:45; Stop 07/06/19 at 10:51; Status DC Heparin Sodium/ Sodium Chloride (HEPARIN for ARTERIAL LINE FLUSH) 1,000 unit 1X ONCE IART Last administered on 07/06/19at 10:50; Start 07/06/19 at 10:45; Stop 07/06/19 at 10:51; Status DC Heparin Sodium/ Sodium Chloride (HEPARIN for ARTERIAL LINE FLUSH) 1,000 unit 1X ONCE IART Last administered on 07/06/19at 10:50; Start 07/06/19 at 10:45; Stop 07/06/19 at 10:51; Status DC Midazolam HCl (Versed) 5 mg 1X ONCE IV Last administered on 07/06/19at 10:56; Start 07/06/19 at 10:45; Stop 07/06/19 at 10:51; Status DC Fentanyl Citrate (Fentanyl 2ml Vial) 100 mcg 1X ONCE IV Last administered on 07/06/19at 10:57; Start 07/06/19 at 10:45; Stop 07/06/19 at 10:51; Status DC Iodixanol (Visipaque 320) 100 ml 1X ONCE IART Last administered on 07/06/19at 10:55; Start 07/06/19 at 10:45; Stop 07/06/19 at 10:51; Status DC Lidocaine HCl (Lidocaine 1% 20ml Vial) 20 ml 1X ONCE INJ Last administered on 07/06/19at 10:56; Start 07/06/19 at 10:45; Stop 07/06/19 at 10:51; Status DC Info (CONTRAST GIVEN -- Rx MONITORING) 1 each PRN DAILY PRN MC SEE COMMENTS; Start 07/06/19 at 11:00; Stop 07/08/19 at 10:59 Sodium Chloride (Normal Saline Flush) 3 ml QSHIFT PRN IV AFTER MEDS AND BLOOD DRAWS; Start 07/06/19 at 11:00 Sodium Chloride 1,000 ml @ 60 mls/hr [id number] IV ; Start 07/06/19 at 10:54; Stop 07/06/19 at 14:53; Status DC Nitroglycerin (Nitrostat) 0.4 mg PRN Q5MIN PRN SL CHEST PAIN; Start 07/06/19 at 11:00 Sodium Chloride 1,000 ml @ 1,000 mls/hr Q1H PRN IV hypotension; Start 07/06/19 at 15:41; Stop 07/06/19 at 21:40; Status DC Acetaminophen (Tylenol) 500 mg 1X PRN PRN PO MILD PAIN / TEMP; Start 07/06/19 at 15:45; Stop 07/07/19 at 15:44; Status DC Diphenhydramine HCl (Benadryl) 25 mg 1X PRN PRN IV ITCHING; Start 07/06/19 at 15:45; Stop 07/07/19 at 15:44; Status DC Diphenhydramine HCl (Benadryl) 25 mg 1X PRN PRN IV ITCHING; Start 07/06/19 at 15:45; Stop 07/07/19 at 15:44; Status DC Sodium Chloride 1,000 ml @ 400 mls/hr Q2H30M PRN IV PATENCY; Start 07/06/19 at 15:41; Stop 07/07/19 at 03:40; Status DC Info (PHARMACY MONITORING -- do not chart) 1 each PRN DAILY PRN MC SEE COM MENTS; Start 07/06/19 at 15:45 Atorvastatin Calcium (Lipitor) 40 mg QHS PO Last administered on 07/07/19at 20:16; Start 07/06/19 at 21:00 Aspirin (Ecotrin) 81 mg DAILYWBKFT PO Last administered on 07/08/19at 08:50; Start 07/06/19 at 17:00 Amlodipine Besylate (Norvasc) 10 mg DAILY PO ; Start 07/08/19 at 09:00 Clopidogrel Bisulfate (Plavix) 75 mg DAILYWBKFT PO Last administered on at 08:52; Start 07/07/19 at 14:15 Active Scripts Active Meclizine Hcl 25 Mg Tablet 1 Tab PO PRN TID PRN Reported Velphoro (Sucroferric Oxyhydroxide) 500 Mg Tab.chew 500 Mg PO TIDWMEALS Calcitriol 0.25 Mcg Capsule 0.25 Mcg PO DAILY Hydralazine Hcl 50 Mg Tablet 50 Mg PO TID Zetia (Ezetimibe) 10 Mg Tablet 10 Mg PO DAILY Spironolactone 25 Mg Tablet 25 Mg PO DAILY Allopurinol 100 Mg Tablet 100 Mg PO DAILY 1/2 tab po daily [place] 5-325 Tablet (Acetaminophen/Hydrocodone Bitart) 1 Each Tablet 1-2 Tab PO Q4-6HRS Ferric Citrate 210 Mg Tablet 210 Mg PO TIDAC 2 tabs for breakfast and lunch, 3 tabs for dinner Carvedilol (Carvedilol) 3.125 Mg Tablet 25 Mg PO BIDWMEALS Furosemide 40 Mg Tablet 1 Tab PO BID Atorvastatin Calcium 20 Mg Tablet 1 Tab PO QHS Renagel (Sevelamer Hcl) 800 Mg Tablet 800 Mg PO TIDWMEALS Vitals/I & O Vital Sign - Last 24 Hours 07/07/19 07/07/19 07/07/19 07/07/19 11:00 11:25 11:25 15:00 Temp 98.2 98.9 98.2 98.9 Pulse 63 81 81 67 Resp 16 16 B/P (MAP) 150/70 (96) 150/70 150/70 163/75 (104) Pulse Ox 98 98 O2 Delivery Room Air Nasal Cannula O2 Flow Rate 2.0 07/07/19 07/07/19 07/07/19 07/07/19 15:32 17:00 17:31 19:00 Temp 97.7 97.7 97.7 97.7 Pulse 81 86 86 86 Resp 18 18 B/P (MAP) 150/70 182/89 (120) 163/75 182/89 (120) Pulse Ox 100 100 O2 Delivery Room Air Room Air 07/07/19 07/07/19 07/08/19 07/08/19 19:30 20:17 00:15 03:36 Temp 98.4 98.6 98.4 98.6 Pulse 86 79 72 Resp 19 19 B/P (MAP) 182/89 123/60 (81) 135/63 (87) Pulse Ox 97 98 O2 Delivery Room Air Room Air Nasal Cannula O2 Flow Rate 1.0 07/08/19 08:56 Pulse 87 B/P (MAP) 137/65 Intake and Output 07/07/19 07/07/19 07/08/19 15:00 23:00 07:00 Intake Total 360 ml Balance 360 ml AR FRIAS MD Jul 08, 2019 09:01
[2019-07-08] MEDS ORDERED: AMLO10TA8 PO (10:28)
[2019-07-08] MEDS ORDERED: CARV3.1210 PO (10:28)
[2019-07-08] MEDS ORDERED: ASPI-612 PO (10:28)
[2019-07-08] MEDS ORDERED: CLOP75TA PO (10:28)
--- NOTE | 2019-07-08 10:52 | PDOC ---
Renal-Progress Notes Subjective Notes Notes FEELS WELL History of Present Illness Hx of present illness STABLE Vitals Vitals Vital Signs Date Time Temp Pulse Resp B/P (MAP) Pulse Ox O2 Delivery O2 Flow Rate FiO2 07/08/19 08:56 87 137/65 07/08/19 07:00 97.9 20 98 Nasal Cannula 1.0 97.9 Weight Weight [ ] I.O. Intake and Output Intake and Output 07/08/19 07:00 Intake Total 360 ml Balance 360 ml Intake Oral 360 ml # Bowel Movements 1 Labs Labs Laboratory Tests Test 07/08/19 08:02 07/08/19 08:08 Glucose (Fingerstick) 89 mg/dL (70-99) White Blood Count 6.8 x10^3/uL (4.0-11.0) Red Blood Count 3.05 x10^6/uL (4.30-5.70) Hemoglobin 9.7 g/dL (13.0-17.5) Hematocrit 29.0 % (39.0-53.0) Mean Corpuscular Volume 95 fL (79-100) Mean Corpuscular Hemoglobin 32 pg (25-35) Mean Corpuscular Hemoglobin Concent 34 g/dL (31-37) Red Cell Distribution Width 14.4 % (11.5-14.5) Platelet Count 165 x10^3/uL (140-400) Neutrophils (%) (Auto) 76 % (31-73) Lymphocytes (%) (Auto) 13 % (24-48) Monocytes (%) (Auto) 8 % (0-9) Eosinophils (%) (Auto) 2 % (0-3) Basophils (%) (Auto) 1 % (0-3) Neutrophils # (Auto) 5.2 x10^3/uL (1.8-7.7) Lymphocytes # (Auto) 0.9 x10^3/uL (1.0-4.8) Monocytes # (Auto) 0.6 x10^3/uL (0.0-1.1) Eosinophils # (Auto) 0.1 x10^3/uL (0.0-0.7) Basophils # (Auto) 0.0 x10^3/uL (0.0-0.2) Review of Systems Constitutional: yes: alert, oriented Ears/Nose/Throat: Yes: no symptom reported Eyes: Yes: no symptom reported Pulmonary: Yes no symptom reported Cardiovascular: Yes no symptom reported Gastrointestional: Yes: no symptom reported Genitourinary: Yes: no symptom reported Musculoskeletal: Yes: no symptom reported Skin: Yes no symptom reported Psychiatric/Neurological: Yes: no symptom reported Endocrine: Yes: no symptom reported Physical Exam General Appearance: no apparent distress Skin: warm Respiratory: bilateral CTA Heart: S1S2, RRR Abdomen: soft, bowel sounds present Genitourinary: bladder flat Extremities: pulses present Neurology: alert, oriented, follow commands Musculoskeletal: Osteoarthritis Assessment Assessment IMP ESRD CHEST PAIN ANEMIA DM II HTN PLAN HD TODAY UF TO DW PD CATHETER REMOVAL PENDING TODAY D/W DR TREVA WILSON FROM RENAL STANDPOINT D/C TODAY MAME HERNANDEZ MD Jul 08, 2019 10:52
[2019-07-08] MEDS ORDERED: IV NORMAL SALINE 1000ML BAG 1,000 ML IV PRN (14:16)
[2019-07-08] MEDS ORDERED: DIALYSIS PATIENT. MC PRN (14:30)
[2019-07-08 15:00] VITALS: BP 166/93
[2019-07-08 15:27] VITALS: BP 166/93
[2019-07-08] MEDS: CARVEDILOL 12.5 MG TABLET. PO SCH (15:27)
--- NOTE | 2019-07-08 15:43 | PDOC ---
CARDIO Progress Notes Date and Time Date of Service 07/08/2019 Time of Evaluation 1530 Subjective Subjective: No Chest Pain, No shortness of breath, No Palpitations Vitals Vitals Vital Signs Date Time Temp Pulse Resp B/P (MAP) Pulse Ox O2 Delivery O2 Flow Rate FiO2 07/08/19 15:27 70 166/93 07/08/19 08:00 Room Air 07/08/19 07:00 97.9 20 98 1.0 97.9 Weight Weight [ ] Input and Output Intake and Output Intake and Output 07/08/19 07:00 Intake Total 360 ml Balance 360 ml Intake Oral 360 ml # Bowel Movements 1 Laboratory Labs Laboratory Tests Test 07/08/19 08:02 07/08/19 08:08 Glucose (Fingerstick) 89 mg/dL (70-99) White Blood Count 6.8 x10^3/uL (4.0-11.0) Red Blood Count 3.05 x10^6/uL (4.30-5.70) Hemoglobin 9.7 g/dL (13.0-17.5) Hematocrit 29.0 % (39.0-53.0) Mean Corpuscular Volume 95 fL (79-100) Mean Corpuscular Hemoglobin 32 pg (25-35) Mean Corpuscular Hemoglobin Concent 34 g/dL (31-37) Red Cell Distribution Width 14.4 % (11.5-14.5) Platelet Count 165 x10^3/uL (140-400) Neutrophils (%) (Auto) 76 % (31-73) Lymphocytes (%) (Auto) 13 % (24-48) Monocytes (%) (Auto) 8 % (0-9) Eosinophils (%) (Auto) 2 % (0-3) Basophils (%) (Auto) 1 % (0-3) Neutrophils # (Auto) 5.2 x10^3/uL (1.8-7.7) Lymphocytes # (Auto) 0.9 x10^3/uL (1.0-4.8) Monocytes # (Auto) 0.6 x10^3/uL (0.0-1.1) Eosinophils # (Auto) 0.1 x10^3/uL (0.0-0.7) Basophils # (Auto) 0.0 x10^3/uL (0.0-0.2) Review of Systems Constitutional: yes: alert, oriented Ears/Nose/Throat: Yes: no symptom reported Eyes: Yes: no symptom reported Pulmonary: Yes no symptom reported Cardiovascular: Yes no symptom reported Gastrointestional: Yes: no symptom reported Genitourinary: Yes: no symptom reported Musculoskeletal: Yes: no symptom reported Skin: Yes no symptom reported Psychiatric/Neurological: Yes: no symptom reported Endocrine: Yes: no symptom reported Physical Exam HEENT: Neck Supple W Full Motion Chest: Symmetric LUNGS: Clear to Auscultation Heart: S1S2, RRR (SR) Abdomen: Soft N/T Extremities: No Calf Tenderness, Other (1+ bilateral LE pitting edema) Neurology: alert, oriented, follow commands Assessment Assessment 1. NSTEMI: peaked at 2.1. LHC revealed 3vd moderate disease no PCI also with noted diffuse distal disease to major vessels 2. Acute small CVA to right frontal: neurology following. 3. CAD: result above 4. HTN: improved 5. HLP 6. Metabolic syndrome 7. ESRD: on PD and transitioning to HD tentatively this Thursday with his LA AV fistula per pt 8. Hx of ICM: recovered. EF at 50% 9. right maxillary sinusitis ?chronic 10. Moderate AI Recommendations 1. Continue aldactone and coreg and norvasc. HBPM uptitrate regimen as an outpt. 2. Lipitor. 40 mg qhs. Cardiac rehab. 3. ASA/plavix. May hold DAPT prior to outpt PD cath removal. 4. Fluid off loading per HD 5. Follow up in office as scheduled AMBAR GONZALEZ APRN Jul 08, 2019 15:43
--- NOTE | 2019-07-08 17:53 | NUR ---
Discharge Note: DOUG GUY Discharge instructions and discharge home medications reviewed with Patient and a copy given. All questions have been answered and understanding verbalized. The following instructions and handouts were given: Diet, medications, keep existing follow up in August, follow up, prescriptions to patient pharmacy, post cath care, plavix and ASA, contact and follow up for PD catheter removal by Dr. Fletcher, and return to dialysis. Discontinued lines and drains: IV removed, existing PD catheter in place. Patient discharged to Home. Left by wheelchair to his son's private vehicle.
== END 2019-07-08 16:55 | disposition home or self-care (01) | DRG 64 ==
LOC: 2 SOUTH 18:55 → CVICU 07-06 12:27 → 2 SOUTH 07-06 14:28
PROVIDERS: ADMIT Internal Medicine; ATTEND Internal Medicine
PROC: B2111ZZ Fluoroscopy of Multiple Coronary Arteries using Low Osmolar Contrast (ICD-10-PCS; principal; 2019-07-06)
PROC: B2151ZZ Fluoroscopy of Left Heart using Low Osmolar Contrast (ICD-10-PCS; 2019-07-06)
PROC: 4A023N7 Measurement of Cardiac Sampling and Pressure, Left Heart, Percutaneous Approach (ICD-10-PCS; 2019-07-06)
DX: I63.9 Cerebral infarction, unspecified (principal); I21.4 Non-ST elevation (NSTEMI) myocardial infarction; N18.6 End stage renal disease; G93.41 Metabolic encephalopathy; Z68.41 Body mass index [BMI] 40.0-44.9, adult; I13.2 Hypertensive heart and chronic kidney disease with heart failure and with stage 5 chronic kidney disease, or end stage renal disease; D64.9 Anemia, unspecified; E11.22 Type 2 diabetes mellitus with diabetic chronic kidney disease; E66.01 Morbid (severe) obesity due to excess calories; E78.5 Hyperlipidemia, unspecified; E88.81 Metabolic syndrome and other insulin resistance; I16.0 Hypertensive urgency; I25.10 Atherosclerotic heart disease of native coronary artery without angina pectoris; I25.5 Ischemic cardiomyopathy; I44.7 Left bundle-branch block, unspecified; E21.3 Hyperparathyroidism, unspecified; F41.9 Anxiety disorder, unspecified; G47.33 Obstructive sleep apnea (adult) (pediatric); M10.9 Gout, unspecified; M19.90 Unspecified osteoarthritis, unspecified site; J32.0 Chronic maxillary sinusitis; I50.9 Heart failure, unspecified; Z79.02 Long term (current) use of antithrombotics/antiplatelets; Z79.82 Long term (current) use of aspirin; Z79.899 Other long term (current) drug therapy; Z82.49 Family history of ischemic heart disease and other diseases of the circulatory system; Z86.73 Personal history of transient ischemic attack (TIA), and cerebral infarction without residual deficits; Z87.11 Personal history of peptic ulcer disease; Z99.2 Dependence on renal dialysis
CPT/HCPCS: 36415; 70551; 80048; 80061; 82962; 84484; 85025; 85027; 85520; 93005; 93306; 93458; 93880; 99152; 99153; C1769; C1892; J1644; J2250; J3010; J3490; Q9967; G0378

== ENCOUNTER 2019-12-20 09:00 | Day surgery (SDC) | payer MEDICARE ==
[~2019-12-20] VITALS: Ht 180.3 cm; Wt 134.5 kg
[~2019-12-20 09:00] MED LIST changes: +ALLO100T PO; +AMLO5TAB10 PO; +ASPI-886 PO; +ATOR40TA59 PO; +CALC200T3 PO; +CALC667T4 PO; +CLOP75TA PO; +EZET10TA20 PO; +FOLI0.8T3 PO; +HYDR-2869 PO; +HYDROmorphone 2 MG/ML VIAL IV PRN; +IV RINGERS,LACTATED 1000ML 1,000 ML IV SCH; +MORPHINE SULFATE 2 MG/ML VIAL. IV PRN; +OMEP20TA8 PO; +ONDANSETRON PF 4 MG/2 ML VIAL. IV PRN; +PROCHLORPERAZINE 10 MG/2 ML VIAL. IV PRN; +SPIR25TA5 PO; +SUCR500T PO; +ceFAZolin SODIUM 3 GM in IV DEXTROSE 5% 100ML 100 ML IV PRN; +fentaNYL PF VIAL 100 MCG/2 ML VIAL IV PRN
[2019-12-20] MEDS ORDERED: LIDOCAINE 2% PF 5 ML VIAL. ONE (09:34)
[2019-12-20] MEDS ORDERED: SEVOFLURANE 61 TO 120 MINUTES. IH ONE (09:34)
[2019-12-20] MEDS ORDERED: fentaNYL PF VIAL 100 MCG/2 ML VIAL ONE (09:34)
[2019-12-20] MEDS ORDERED: DEXAMETHASONE SOD PHOS 4 MG/ML VIAL ONE (09:34)
[2019-12-20] MEDS ORDERED: MIDAZOLAM HCL/PF 2 MG/2 ML VIAL. ONE (09:34)
[2019-12-20] MEDS ORDERED: PROPOFOL 10 MG/ML (20ML) VIAL. IV ONE (09:35)
[2019-12-20] MEDS ORDERED: ONDANSETRON PF 4 MG/2 ML VIAL. ONE (09:35)
[2019-12-20] MEDS ORDERED: ETOMIDATE 20 MG/10 ML VIAL. IV ONE (09:37)
[2019-12-20] MEDS ORDERED: ePHEDrine PF IN SALINE 50 MG/10 ML SYRINGE. IV ONE (09:39)
[2019-12-20] MEDS ORDERED: INSULIN LISPRO 100 UNIT/ML 3ML VIAL for OP,RR ONLY. SQ PRN (09:45)
[2019-12-20] MEDS ORDERED: IV NORMAL SALINE 1000ML BAG 1,000 ML IV SCH (09:45)
[2019-12-20 09:52] LABS: CALCIUM 8.3 mg/dL (8.5-10.1); CREATININE 11.8 mg/dL (0.7-1.3); GFR 5.3; POTASSIUM 4.3 mmol/L (3.5-5.1)
[2019-12-20] MEDS ORDERED: PHENYLEPHRINE in 0.9% NACL PF 1 MG/10 ML SYRINGE. IV ONE (10:41)
--- NOTE | 2019-12-20 11:14 | PDOC4 ---
Operative Note Operative Note Operative Note: Preoperative Diagnosis: Renal failure Postoperative Diagnosis: Same Procedure: Removal of peritoneal dialysis catheter Surgeon: Chance Wanigan Clerk: Cortez SANCHEZ Anesthesia: General EBL: 10 mL Specimen: None Drains: None Complications: None Indication: The patient is a 59-year-old male who had a peritoneal dialysis catheter placed previously. The catheter has been functional however he has not dialyzed adequately. He has converted to hemodialysis and a request was made for removal of the catheter. The risks of surgery were discussed which include bleeding, infection, visceral injury, pain, anesthetic risk, hernia formation, potential need for additional surgery procedure. He understands and would like to proceed. Description: The patient was taken the operating room placed supine in the operating table. General anesthesia was performed. The abdomen was prepped with ChloraPrep and draped in a standard surgical manner. An incision was made in the vicinity of the expected distal cuff. Cautery dissection was carried down into the subcutaneous tissue. The previous metallic adapter was identified indicating joining of 2 catheters. The catheter was then followed distally to the distal cuff. This was freed from the surrounding fascia and tissue and the coiled distal portion was withdrawn easily. The fascial defect was closed with an 0 Vicryl [id number] suture. A separate incision was made superiorly in the expected region of the proximal cuff. The catheter and cuff were readily identified and subcutaneous tissue and freed up from the surrounding tissues. The catheter was then cut and the pieces were fully extracted and discarded. Hemostasis was achieved with cautery. The subcutaneous tissue of both incisions was closed with 3-0 Vicryl and skin was closed with 4-0 Monocryl. Sterile dressings were applied. The patient tolerated the procedure well and sent to the recovery room in stable condition. At the end of the case all counts were correct. ILEANA BETANCOURT MD Dec 20, 2019 11:14
--- NOTE | 2019-12-20 11:17 | DISCH ---
DISCHARGE INSTRUCTIONS Condition on Discharge Condition on Discharge: Stable Activity After Discharge Activity Instructions for Disc: Other, see below (no lifting over 20 lbs X 2 weeks) Diet after Discharge Diet after Discharge: Regular Wound Incision Care Wound/Incision Care: Other, see below (keep dressings clean and dry X 72 hours, may then remove and shower) Checks after Discharge Checks after discharge: Check blood press - daily Follow-Up Follow up with: Dr Betancourt in 2 weeks in office, call for appt [phone] ILEANA BETANCOURT MD Dec 20, 2019 11:17
[2019-12-20] MEDS ORDERED: HYDR-3164 PO (11:27)
[2019-12-20 11:30] VITALS: BP 159/79
[2019-12-20] MEDS ORDERED: HYDROcodone/APAP 5/325MG 1 TAB TABLET ONE (11:31)
[2019-12-20] MEDS ORDERED: HYDROcodone/APAP 5/325MG 1 TAB TABLET PO ONE (11:45)
== END 2019-12-20 12:12 | disposition home or self-care (01) ==
LOC: SURG 09:00
PROVIDERS: ATTEND Surgery
DX: I13.2 Hypertensive heart and chronic kidney disease with heart failure and with stage 5 chronic kidney disease, or end stage renal disease (principal); N18.6 End stage renal disease; I50.9 Heart failure, unspecified; E11.22 Type 2 diabetes mellitus with diabetic chronic kidney disease; Z20.828 Contact with and (suspected) exposure to other viral communicable diseases; I25.10 Atherosclerotic heart disease of native coronary artery without angina pectoris; E78.5 Hyperlipidemia, unspecified; E66.9 Obesity, unspecified; Z68.41 Body mass index [BMI] 40.0-44.9, adult; Z79.82 Long term (current) use of aspirin; Z79.899 Other long term (current) drug therapy; Z98.890 Other specified postprocedural states
CPT/HCPCS: 36415; 49422; 80048; 82962; 87426; A7015; J1100; J2250; J2370; J2405; J2704; J3010; J3490; U0003

== ENCOUNTER 2020-10-09 06:56 | Outpatient (CLI) | payer MEDICARE ==
[~2020-10-09] VITALS: Ht 180.3 cm; Wt 125.0 kg
[~2020-10-09 06:56] MED LIST changes: +AMLO-186 PO; +AMLO-187 PO; -AMLO10TA8 PO; -AMLO5TAB10 PO; -CINA30TA2 PO; +CINA30TA24 PO; -HYDROmorphone 2 MG/ML VIAL IV PRN; -IV RINGERS,LACTATED 1000ML 1,000 ML IV SCH; -LISI-338 PO; +LISI-517 PO; -MORPHINE SULFATE 2 MG/ML VIAL. IV PRN; -ONDANSETRON PF 4 MG/2 ML VIAL. IV PRN; -PROCHLORPERAZINE 10 MG/2 ML VIAL. IV PRN; -ceFAZolin SODIUM 3 GM in IV DEXTROSE 5% 100ML 100 ML IV PRN; -fentaNYL PF VIAL 100 MCG/2 ML VIAL IV PRN
[2020-10-09] MEDS ORDERED: IODIXANOL 320 MG/ML 100 ML VIAL. ONE (08:03)
[2020-10-09] MEDS ORDERED: LIDOCAINE WITH 8.4% SOD BICARB 3 ML DISP.SYRIN. ONE (08:03)
[2020-10-09 08:06] LABS: BASO # 0.1 x10^3/uL (0.0-0.2); BASO % 1 % (0-3); EOS # 0.1 x10^3/uL (0.0-0.7); EOS % 1 % (0-3); HEMATOCRIT 38.9 % (39.0-53.0); HEMOGLOBIN 12.9 g/dL (13.0-17.5); LYMPH # 1.1 x10^3/uL (1.0-4.8); LYMPH % 16 % (24-48); MEAN CORPUSCULAR HEMOGLOBIN 31 pg (25-35); MEAN CORPUSCULAR HGB CONC 33 g/dL (31-37); MEAN CORPUSCULAR VOLUME 93 fL (79-100); MONO # 0.7 x10^3/uL (0.0-1.1); MONO % 9 % (0-9); NEUT # 5.2 x10^3/uL (1.8-7.7); NEUT % 73 % (31-73); PLATELET COUNT 218 x10^3/uL (140-400); RED BLOOD COUNT 4.16 x10^6/uL (4.30-5.70); RED CELL DISTRIBUTION WIDTH 15.2 % (11.5-14.5); WHITE BLOOD COUNT 7.1 x10^3/uL (4.0-11.0)
[2020-10-09 08:11] VITALS: BP 176/107
[2020-10-09 08:20] LABS: CREATININE 11.5 mg/dL (0.7-1.3); GFR 5.5
[2020-10-09] MEDS ORDERED: CLOP75TA PO (08:21)
[2020-10-09 08:22] LABS: POTASSIUM 5.7 mmol/L (3.5-5.1)
[2020-10-09] MEDS ORDERED: MIDAZOLAM HCL/PF 2 MG/2 ML VIAL. ONE (08:22)
[2020-10-09] MEDS ORDERED: FLUMAZENIL 0.5 MG/5 ML VIAL. IV ONE (08:23)
[2020-10-09] MEDS ORDERED: NALOXONE 0.4 MG/ML VIAL. ONE (08:23)
[2020-10-09] MEDS ORDERED: fentaNYL PF VIAL 100 MCG/2 ML VIAL ONE (08:23)
[2020-10-09] MEDS ORDERED: HEPARIN for IV BOLUS 10,000 UNIT/10 ML VIAL. ONE (08:23)
[2020-10-09] MEDS ORDERED: IODIXANOL 320 MG/ML 100 ML VIAL. IART ONE (08:45)
[2020-10-09] MEDS ORDERED: fentaNYL PF VIAL 100 MCG/2 ML VIAL IV ONE (08:45)
[2020-10-09] MEDS ORDERED: LIDOCAINE WITH 8.4% SOD BICARB 3 ML DISP.SYRIN. IJ ONE (08:45)
[2020-10-09] MEDS ORDERED: MIDAZOLAM HCL/PF 2 MG/2 ML VIAL. IV ONE (08:45)
[2020-10-09] MEDS ORDERED: HEPARIN for IV BOLUS 10,000 UNIT/10 ML VIAL. IV ONE (09:00)
--- NOTE | 2020-10-09 09:40 | PDOC ---
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 Procedure Performed Procedure Performed Fistulogram Angioplasty of venous outflow stenosis. Type of Anesthesia Type of Anesthesia Mod sed Estimated Blood Loss EBL: 10 Specimens Specimans None Drain/Tubes Drains/Tubes None Condition of Patient Condition of Patient Stable Disposition Disposition [facility] BASIM FARAH MD Oct 09, 2020 09:40
[2020-10-09 09:42] VITALS: BP 161/93
[2020-10-09 10:01] VITALS: BP 154/80
[2020-10-09 10:16] VITALS: BP 163/93
[2020-10-09 10:31] VITALS: BP 164/94
[2020-10-09 10:46] VITALS: BP 165/88
--- NOTE | 2020-10-09 11:10 | NUR ---
pt A &O x4. denies any pain or nausea. VSS. SAMIA dressings clean and dry. tolerating po well . ambulated w/o problem . d/c instructions reviewed- gave copy of order for dialysis center to remove stitches removed. questions answered. out to vehicle per w/c- family to drive home
--- NOTE | 2020-10-09 16:36 | RAD ---
10/09/2020 1.Left upper extremity AV fistulogram 2. Selective angiography of the left brachial artery 3. Angioplasty of outflow vein stenosis x2 Consent: The procedure was explained in its entirety to the patient or the patients designated repres entative by a member of the treatment team, including a discussion of the risks, benefits and commonl y accepted alternatives to the procedure, as well as the expected consequences of no therapy whatsoev er. Discussion of the risks included, but was not limited to, those that are most frequent and thos e that are rare but possibly severe or life-threatening, as well as the possibility of unforeseen com plications. PROCEDURE: A timeout procedure was performed. The left upper extremity was prepped and draped using s terile barrier technique. 1% lidocaine was administered for local anesthesia. The fistula was accesse d directed towards the venous outflow using direct ultrasound guidance and micropuncture technique. R eference ultrasound images were saved medical record. Fistulograms were obtained demonstrating a mode rate to high-grade proximal outflow vein stenosis. Possible adjacent surgical clips noted. The more c entral brachial vein is widely patent. Subclavian and axillary veins are patent. Left brachiocephalic vein and SVC are patent. A guidewire was manipulated across the area of stenosis and balloon dilatat ion was performed up to 8 mm which resulted in improved morphology and flow. During angioplasty contr ast was injected refluxing through the more proximal fistula which also is narrowed. The arterial vadim stomosis is widely patent. Access was then achieved and a essentially identical fashion directed towa rds the arterial anastomosis. A guidewire was manipulated into the brachial artery. Angioplasty of th e proximal outflow vein was performed up to 7 mm. Catheter was then advanced into the brachial artery , and a selective angiogram from this position was obtained. Angioplasty was found to have improved m orphology and flow. Note the patient did experience discomfort with all angioplasties, at the size is described. All guidewires and balloons were removed. The sheath removed and pursestring sutures. Man ual pressure was held. No immediate complications were identified. Sedation: The procedure was performed under conscious sedation including continuous cardiopulmonary m onitoring via a dedicated sedation nurse. [id number] sedation time: 60 minutes Total fluoroscopy time 4.8 minutes Dose area product 4 fany centimeters squared Impression: Multifocal outflow vein stenosis treated with balloon angioplasty as described. Electronically signed by: Louis Emmanuel MD (10/09/2020 4:33 PM) [id number]
== END 2020-10-09 11:10 | disposition home or self-care (01) ==
LOC: INTRAD 06:56
PROVIDERS: ATTEND Internal Medicine Nephrology
DX: I13.2 Hypertensive heart and chronic kidney disease with heart failure and with stage 5 chronic kidney disease, or end stage renal disease (principal); I50.9 Heart failure, unspecified; N18.6 End stage renal disease; E78.00 Pure hypercholesterolemia, unspecified; E11.22 Type 2 diabetes mellitus with diabetic chronic kidney disease; G47.30 Sleep apnea, unspecified; F41.9 Anxiety disorder, unspecified; M10.9 Gout, unspecified; F32.9 Major depressive disorder, single episode, unspecified; Z99.2 Dependence on renal dialysis; Z79.899 Other long term (current) drug therapy; Z98.890 Other specified postprocedural states; Z20.822 Contact with and (suspected) exposure to COVID-19
CPT/HCPCS: 36415; 36902; 80048; 85025; 85610; 87426; 99152; 99153; C1725; C1769; C1892; C1894; J1644; J2250; J3010; J3490; Q9967